=== PATIENT | female | born 1950 | race Caucasian/White ===

== ENCOUNTER → 2018-03-22 | Outpatient (CLI) | payer OTHER ==
[~2018-03-22] MED LIST: DRGTP50 TOP; FOLI1TAB8 PO; FRRG PO; HYDR25TA5 PO; OXYC-57 PO; QUET1TAB34 PO; RXC5 PO; VITAMINB; WARF1TAB PO; ZOLP10TA PO
[2018-03-22 15:48] LABS: HEMATOCRIT 40.7 % (37-47); HEMOGLOBIN 13.7 g/dL (12.0-16.0); MEAN CELL VOLUME 90.6 fL (80-100); MEAN CORPUSCULAR HEMOGLOBIN 30.5 pg (25-34); MEAN CORPUSCULAR HGB CONC 33.7 g/dl (32-36); PLATELET COUNT 249 K/uL (130-400); RED CELL DISTRIBUTION WIDTH CV 12.6 % (11.5-14.5); RED CELL DISTRIBUTION WIDTH SD 41.6 fL (36.4-46.3); WHITE BLOOD COUNT 4.66 K/uL (4.8-10.8)
[2018-03-22 16:24] LABS: ALBUMIN 3.7 gm/dl (3.4-5.0); ALT/SGPT 17 U/L (12-78); AST/SGOT 22 U/L (15-37); BLOOD UREA NITROGEN 11 mg/dl (7-18); CALCIUM 8.9 mg/dl (8.5-10.1); CARBON DIOXIDE 31 mmol/L (21-32); CHOLESTEROL 183 mg/dl (0-200); CREATININE 0.72 mg/dl (0.60-1.20); GLUCOSE 104 mg/dl (70-99); SODIUM 137 mmol/L (136-145)
[2018-03-22 16:35] LABS: ALKALINE PHOSPHATASE 115 U/L (45-117); LDL CHOLESTEROL CALCULATED 97 mg/dl; TOTAL PROTEIN 7.7 gm/dl (6.4-8.2)
== END | disposition home or self-care (01) ==
LOC: C.LAB 15:17
PROVIDERS: ATTEND Surgery
DX: E03.9 Hypothyroidism, unspecified (principal); M15.0 Primary generalized (osteo)arthritis; I25.10 Atherosclerotic heart disease of native coronary artery without angina pectoris; E53.8 Deficiency of other specified B group vitamins

== ENCOUNTER 2024-08-05 20:40 | Observation (INO) ==
--- NOTE | 2024-08-05 20:48 | Emergency Department Note ---
Impression & Plan Acute confusion, Unresponsive episode, MARY (acute kidney injury), Transaminitis, Acute UTI (urinary tract infection), Hypomagnesemia ED Provider Note HISTORY OF PRESENT ILLNESS: Patient is a 73-year-old female presenting with an unresponsive episode. Patient presents with EMS and EMS company. They report that they were called to the patient's house for an unresponsive episode. They report that family stated that the patient was found down and they started CPR. When the fire company got there, the patient was found to have a pulse and CPR was stopped. Patient had sonorous respirations and was given 2 mg of Narcan on EMS arrival. She started to have improvement in her respiratory drive and was being transported to the hospital when she started become very sonorous breathing again and given an additional 1 mg of Narcan. On arrival to the ER, the patient is arousable to painful stimuli. She does not remember what happened this evening. She states she was not trying to hurt herself. EMS reports that they pulled off 7 melatonin patches prehospital. When asked why the patient had this many on, she states that "I just wanted to sleep tonight." ROS: as above PHYSICAL EXAM: Constitutional: Patient appears in no acute distress. Patient is covered in fentanyl and melatonin patches. HENT: Head: Normocephalic and atraumatic. Eyes: EOMI, PERRL Mouth/Throat: Mucous membranes moist. Neck: Trachea midline. Neck supple. Cardiovascular: RRR, No murmurs, rubs or gallops. Intact distal pulses. Pulmonary/Chest: No respiratory distress. Breath sounds clear and equal bilaterally. No wheezes or rales. Abdominal: Abdomen soft, no tenderness, rebound or guarding. Musculoskeletal: No edema, tenderness or deformity noted. Skin: Warm and dry. No rash, erythema, pallor or cyanosis Psychiatric: Appropriate mood and affect for situation. Neurological: Awakens to painful stimuli. Speech is slurred. CN II-XII grossly intact, moving all extremities spontaneously. MDM: - Vitals signs stable. Patient has a relatively normal fingerstick glucose on arrival to the emergency department. She is breathing about 16 times a minute. However, she does not answer any questions until painful stimuli is applied. She has significantly slurred speech. Given patient's continued lethargy, 0.4 mg IV Narcan was administered. Minimal improvement with the IV Narcan. Patient's pupils are not necessarily pinpoint, so I do not feel this is a opioid overdose. - History obtained via EMS, given patient's lethargy. History as above. - Chronic conditions affecting care: Hypertension; TMJ - Differential diagnoses include, but are not limited to: Drug intoxication; drug overdose; alcohol intoxication; CVA; intracranial hemorrhage; ACS; dysrhythmia; UTI; pneumonia - Order placed for continuous cardiac monitoring. At this time, monitor showed rate of 64 bpm with normal sinus rhythm, per my interpretation. - External medical records reviewed. EMS run sheet was reviewed. Patient was given 2 mg of Narcan and then additional 1 mg of Narcan prehospital. - EKG interpreted by myself showed normal sinus rhythm. Rate 74 bpm. QTc 434. No acute ischemic changes. - Laboratory workup interpreted by myself showed normal WBC; anemia (Hgb 8.8); normal INR; MARY (Cr 2.26); normal lactate; hypomagnesemia (Mg 1.5); transaminitis (AST 116; ALT 76); elevated TSH (10.809) with normal T4; negative alcohol/salicylate/acetaminophen levels - UA showed evidence for infection. Patient given 2 g IV Rocephin. - CT head wo contrast negative for acute intracranial pathology - Viral respiratory panel negative. - CXR negative for pneumonia, per my interpretation. - Patient given 2L NS in ER. Given 1g IV magnesium for electrolyte replacement - Discussion was had with piano case maker about patient's case and need for admission - Hospitalist, Dr. Mosquera; consulted for admission - [facility]. I have personally spent 34 minutes of critical care time in the direct management of this patient. This includes bedside care, interpretation of diagnostic studies, and testing, discussion with consultants, patient, and family members, and other required patient management activities. This 34 minutes is in excess of all separately billable procedures. ASSESSMENT AND PLAN: Diagnosis: Acute confusion; unresponsive episode; MARY; hypomagnesemia; transaminitis; acute UTI Plan: Admit Past Med/Surg History Problem List (Updated 08/06/24 @ 00:13 by Ebonie Nowak MD) Hypomagnesemia (Acute) Acute UTI (urinary tract infection) (Acute) Transaminitis (Acute) MARY (acute kidney injury) (Acute) Unresponsive episode (Acute) Acute confusion (Acute) Rotator cuff arthropathy of right shoulder Encounter for pre-operative examination Bimalleolar fracture of left ankle Medical History Degenerative disc disease Arthritis Ankle fracture, left History of TMJ disorder Migraine Hypertension Surgical History History of total hip arthroplasty History of total knee replacement Family History Other No family history of adverse response to anesthesia Social History Smoking Status: Unknown if ever smoked Second Hand Exposure: Yes (as a child); Hx Alcohol Use: Yes Alcohol type: wine Preferred Language: Bah[place]ian 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 Service [employer] Required: No Beliefs That Will Affect Care: None Current Living Situation: Spouse Feels Safe at Home: Yes Assistive Devices: Glasses and Walker Allergies Allergies Allergy/AdvReac Type Severity Reaction Status Date / Time No Known Allergies Allergy Verified 04/20/23 11:03 Home Meds Home Medications Medication Instructions Recorded Confirmed oxycodone 10 mg tablet 10 mg PO TID 04/13/23 04/20/23 rizatriptan 5 mg disintegrating 5 mg PO DIRECTED PRN Migraine 04/13/23 04/20/23 tablet Headache losartan 25 mg tablet 25 mg PO UD PRN elevated bp 04/19/23 04/20/23 multivitamin 1 tab PO DAILY 04/19/23 04/20/23 Previous Rx's Medication Instructions Recorded aspirin 81 mg capsule 81 mg PO BID #60 caps 04/20/23 benzonatate 200 mg capsule 200 mg PO TID PRN cough #20 caps 09/19/23 Results & Data (ED) Vital Signs Vital Signs - 24 hr 08/05/24 20:37 08/05/24 20:37 08/05/24 20:38 Temperature 35.9 C L Temperature Source Rectal Pulse Rate 72 64 Pulse Rate [Apical] Pulse Rate from SpO2 Sensor Pulse Rhythm [Apical] Respiratory Rate 16 Respiratory Effort / Characteristics Non-Labored Respiratory Depth Normal Respiratory Pattern Regular Blood Pressure 109/67 Blood Pressure [Right Arm] Blood Pressure Mean 81 Blood Pressure Mean [Right Arm] Pulse Oximetry 100 100 Oxygen Delivery Method Room Air Room Air Sepsis Recent Fever Within 48 Hours No Sepsis New/Unexplained Change in Mental Status N/A Sepsis Action Taken by Nursing No Action Required End-Tidal CO2 End Tidal CO2 (18-54mmHg) 08/05/24 21:00 08/05/24 21:07 08/05/24 21:10 Temperature Temperature Source Pulse Rate 69 72 Pulse Rate [Apical] Pulse Rate from SpO2 Sensor Pulse Rhythm [Apical] Respiratory Rate 16 Respiratory Effort / Characteristics Respiratory Depth Respiratory Pattern Blood Pressure 109/70 Blood Pressure [Right Arm] Blood Pressure Mean 83 Blood Pressure Mean [Right Arm] Pulse Oximetry 100 100 Oxygen Delivery Method Room Air Room Air Sepsis Recent Fever Within 48 Hours Sepsis New/Unexplained Change in Mental Status Sepsis Action Taken by Nursing End-Tidal CO2 31 End Tidal CO2 (18-54mmHg) 08/05/24 21:10 08/05/24 21:20 08/05/24 21:30 Temperature Temperature Source Pulse Rate 67 69 63 Pulse Rate [Apical] Pulse Rate from SpO2 Sensor Pulse Rhythm [Apical] Respiratory Rate 22 16 21 Respiratory Effort / Characteristics Respiratory Depth Respiratory Pattern Blood Pressure 122/81 133/86 127/76 Blood Pressure [Right Arm] Blood Pressure Mean 95 109 93 Blood Pressure Mean [Right Arm] Pulse Oximetry 100 99 97 Oxygen Delivery Method Room Air Room Air Room Air Sepsis Recent Fever Within 48 Hours Sepsis New/Unexplained Change in Mental Status Sepsis Action Taken by Nursing End-Tidal CO2 31 33 End Tidal CO2 (18-54mmHg) 08/05/24 21:47 08/05/24 22:00 08/05/24 22:15 Temperature Temperature Source Pulse Rate 57 L 57 L Pulse Rate [Apical] 56 L Pulse Rate from SpO2 Sensor 57 L 57 L Pulse Rhythm [Apical] Respiratory Rate 17 15 15 Respiratory Effort / Characteristics Non-Labored Respiratory Depth Normal Respiratory Pattern Regular Blood Pressure 134/82 136/80 Blood Pressure [Right Arm] 127/78 Blood Pressure Mean 107 87 Blood Pressure Mean [Right Arm] 94 Pulse Oximetry 97 97 96 Oxygen Delivery Method Room Air Room Air Room Air Sepsis Recent Fever Within 48 Hours Sepsis New/Unexplained Change in Mental Status Sepsis Action Taken by Nursing End-Tidal CO2 18 16 End Tidal CO2 (18-54mmHg) 08/05/24 22:30 08/05/24 22:45 08/05/24 23:00 Temperature Temperature Source Pulse Rate Pulse Rate [Apical] 54 L 56 L 56 L Pulse Rate from SpO2 Sensor Pulse Rhythm [Apical] Regular Regular Respiratory Rate 12 14 13 Respiratory Effort / Characteristics Non-Labored Non-Labored Non-Labored Respiratory Depth Normal Normal Normal Respiratory Pattern Regular Regular Regular Blood Pressure Blood Pressure [Right Arm] 134/81 123/80 116/74 Blood Pressure Mean Blood Pressure Mean [Right Arm] 98 94 88 Pulse Oximetry 100 99 95 Oxygen Delivery Method Room Air Room Air Room Air Sepsis Recent Fever Within 48 Hours Sepsis New/Unexplained Change in Mental Status Sepsis Action Taken by Nursing End-Tidal CO2 End Tidal CO2 (18-54mmHg) 34 34 37 08/05/24 23:27 Temperature Temperature Source Pulse Rate Pulse Rate [Apical] 64 Pulse Rate from SpO2 Sensor Pulse Rhythm [Apical] Respiratory Rate 13 Respiratory Effort / Characteristics Non-Labored Spontaneous Respiratory Depth Normal Respiratory Pattern Regular Blood Pressure Blood Pressure [Right Arm] 124/71 Blood Pressure Mean Blood Pressure Mean [Right Arm] 88 Pulse Oximetry 100 Oxygen Delivery Method Room Air Sepsis Recent Fever Within 48 Hours Sepsis New/Unexplained Change in Mental Status Sepsis Action Taken by Nursing End-Tidal CO2 End Tidal CO2 (18-54mmHg) Laboratory Data 08/05/24 21:11 08/05/24 21:11 Lab Results 08/05/24 08/05/24 08/05/24 Range/Units 20:46 21:05 21:11 WBC 6.26 (4.8-10.8) K/ul RBC 3.53 L (4.20-5.40) M/uL Hgb 8.8 L (12.0-16.0) g/dl POC Hgb (12.0-16.0) g/dl Hct 27.1 L (37.0-47.0) % POC Hct (37-47) % MCV 76.8 L (80.0-100.0) fL MCH 24.9 L (25.0-34.0) pg MCHC 32.5 (32.0-36.0) g/dL RDW Std Deviation 51.0 H (36.4-46.3) fL RDW Coeff of Alia 18.3 H (11.5-14.5) % Plt Count 220 (130-400) K/uL MPV 9.2 L (9.4-12.4) fL Immature Gran % (Auto) 0.5 % Neut % (Auto) 67.4 % Lymph % (Auto) 23.3 % [place] % (Auto) 6.9 % Eos % (Auto) 1.1 % Baso % (Auto) 0.8 % Neut # (Auto) 4.22 (1.40-6.50) K/uL Lymph # (Auto) 1.46 (1.20-3.40) K/uL [place] # (Auto) 0.43 (0.11-0.59) K/uL Eos # (Auto) 0.07 (0.00-0.50) K/uL Baso # (Auto) 0.05 (0.00-0.20) K/uL Immature Gran # (Auto) 0.03 (0.01-0.20) K/uL PT 12.2 H (9.0-12.0) Seconds INR 1.1 (0.9-1.1) POC Sodium (135-144) mmol/L Sodium 132 L (136-145) mmol/L POC Potassium (3.3-5.0) mmol/L Potassium 3.7 (3.5-5.1) mmol/L POC Chloride (101-112) mmol/L Chloride 100 (98-107) mmol/L Carbon Dioxide 22 (21-32) mmol/L POC Total CO2 (24-31) mmol/L Anion Gap 10 (3-11) POC Anion Gap (16-25) mmol/L POC BUN (7-18) mg/dl BUN 40 H (6-23) mg/dl Creatinine 2.26 H (0.6-1.2) mg/dl POC Creatinine (0.6-1.3) mg/dl Est Cr Clr Drug Dosing 17.1 ml/min Est GFR ( Amer) 24.2 ml/min Est GFR (Non-Af Amer) 20.8 ml/min BUN/Creatinine Ratio 17.7 (10-20) Glucose 107 H (70-99(Fasting)) mg/dl POC Glucose 160 H (70-99) mg/dl POC Glucose (other) (70-99) mg/dl Lactate (0.4-2.0) mmol/L Calcium 8.8 (8.6-10.3) mg/dl POC Ioniz Calcium Ro (1.12-1.32) mmol/l Magnesium 1.5 L (1.7-2.4) mg/dl Total Bilirubin 0.7 (0.2-1.0) mg/dl AST 116 H (13-39) U/L ALT 76 H (7-52) U/L Alkaline Phosphatase 62 (34-104) U/L Total Creatine Kinase 87 (26-192) U/L Troponin I High Sens 12.8 (0-14) pg/ml Total Protein 7.2 (6.0-8.3) gm/dl Albumin 3.8 (3.4-5.0) gm/dl Globulin 3.4 (2.5-4.0) gm/dl Albumin/Globulin Ratio 1.1 (0.9-2) TSH 10.809 H (0.300-4.500) uIu/ml Free T4 1.04 (0.61-1.60) ng/dl Urine Color Urine Appearance (Clear) Urine pH (4.5-7.5) Ur Specific [place] (1.000-1.030) Urine Protein (Negative) Urine Glucose (UA) (Negative) Urine Ketones (Negative) Urine Blood (Negative) Urine Nitrite (Negative) Urine Bilirubin (Negative) Urine Urobilinogen (Negative) Ur Leukocyte Esterase (Negative) Urine WBC (Auto) (0-5) /hpf Urine RBC (Auto) (0-2) /hpf U Hyaline Cast (Auto) (0-2) /lpf U Epithel Cells (Auto) (0-2) /hpf Urine Bacteria (Auto) (None Seen) Ur Renal Epithelial Cell (None Presnt) /lpf Salicylates < 3.0 L (3.0-30) mg/dl Acetaminophen < 3 L (10-30) ug/ml Ethyl Alcohol mg/dL < 10.0 (<10.0) mg/dl Adenovirus (PCR) Not Detected (NotDetected) B. pertussis DNA (PCR) Not Detected (NotDetected) B.parapertussis DNA PCR Not Detected (NotDetected) C. pneumoniae DNA (PCR) Not Detected (NotDetected) Coronavirus OC43 (PCR) Not Detected (NotDetected) Coronavirus HKU1 (PCR) Not Detected (NotDetected) Coronavirus 229E (PCR) Not Detected (NotDetected) SARS-CoV-2 (PCR) Not Detected (NotDetected) Coronavirus NL63 (PCR) Not Detected (NotDetected) Human Metapneumovir PCR Not Detected (NotDetected) Influenza Type A (PCR) Not Detected (NotDetected) Influenza Type B (PCR) Not Detected (NotDetected) M. pneumoniae (PCR) Not Detected (NotDetected) Parainfluenza 1 (PCR) Not Detected (NotDetected) Parainfluenza 2 (PCR) Not Detected (NotDetected) Parainfluenza 3 (PCR) Not Detected (NotDetected) Parainfluenza 4 (PCR) Not Detected (NotDetected) RSV (PCR) Not Detected (NotDetected) Entero/Rhino (PCR) Not Detected (NotDetected) 08/05/24 08/05/24 08/05/24 Range/Units 21:16 21:21 21:32 WBC (4.8-10.8) K/ul RBC (4.20-5.40) M/uL Hgb (12.0-16.0) g/dl POC Hgb 9.9 L (12.0-16.0) g/dl Hct (37.0-47.0) % POC Hct 29 L (37-47) % MCV (80.0-100.0) fL MCH (25.0-34.0) pg MCHC (32.0-36.0) g/dL RDW Std Deviation (36.4-46.3) fL RDW Coeff of Alia (11.5-14.5) % Plt Count (130-400) K/uL MPV (9.4-12.4) fL Immature Gran % (Auto) % Neut % (Auto) % Lymph % (Auto) % [place] % (Auto) % Eos % (Auto) % Baso % (Auto) % Neut # (Auto) (1.40-6.50) K/uL Lymph # (Auto) (1.20-3.40) K/uL [place] # (Auto) (0.11-0.59) K/uL Eos # (Auto) (0.00-0.50) K/uL Baso # (Auto) (0.00-0.20) K/uL Immature Gran # (Auto) (0.01-0.20) K/uL PT (9.0-12.0) Seconds INR (0.9-1.1) POC Sodium 134 L (135-144) mmol/L Sodium (136-145) mmol/L POC Potassium 3.7 (3.3-5.0) mmol/L Potassium (3.5-5.1) mmol/L POC Chloride 99 L (101-112) mmol/L Chloride (98-107) mmol/L Carbon Dioxide (21-32) mmol/L POC Total CO2 21 L (24-31) mmol/L Anion Gap (3-11) POC Anion Gap 18.0 (16-25) mmol/L POC BUN 35 H (7-18) mg/dl BUN (6-23) mg/dl Creatinine (0.6-1.2) mg/dl POC Creatinine 2.4 H (0.6-1.3) mg/dl Est Cr Clr Drug Dosing ml/min Est GFR ( Amer) ml/min Est GFR (Non-Af Amer) ml/min BUN/Creatinine Ratio (10-20) Glucose (70-99(Fasting)) mg/dl POC Glucose (70-99) mg/dl POC Glucose (other) 109 H (70-99) mg/dl Lactate 1.2 (0.4-2.0) mmol/L Calcium (8.6-10.3) mg/dl POC Ioniz Calcium Ro 1.19 (1.12-1.32) mmol/l Magnesium (1.7-2.4) mg/dl Total Bilirubin (0.2-1.0) mg/dl AST (13-39) U/L ALT (7-52) U/L Alkaline Phosphatase (34-104) U/L Total Creatine Kinase (26-192) U/L Troponin I High Sens (0-14) pg/ml Total Protein (6.0-8.3) gm/dl Albumin (3.4-5.0) gm/dl Globulin (2.5-4.0) gm/dl Albumin/Globulin Ratio (0.9-2) TSH (0.300-4.500) uIu/ml Free T4 (0.61-1.60) ng/dl Urine Color Yellow Urine Appearance Turbid A (Clear) Urine pH 6.0 (4.5-7.5) Ur Specific [place] 1.010 (1.000-1.030) Urine Protein 1+ H (Negative) Urine Glucose (UA) Negative (Negative) Urine Ketones Negative (Negative) Urine Blood Trace H (Negative) Urine Nitrite Positive A (Negative) Urine Bilirubin Negative (Negative) Urine Urobilinogen Negative (Negative) Ur Leukocyte Esterase 3+ H (Negative) Urine WBC (Auto) >50 H (0-5) /hpf Urine RBC (Auto) 0-2 (0-2) /hpf U Hyaline Cast (Auto) >20 H (0-2) /lpf U Epithel Cells (Auto) 6-10 H (0-2) /hpf Urine Bacteria (Auto) 4+ H (None Seen) Ur Renal Epithelial Cell Present A (None Presnt) /lpf Salicylates (3.0-30) mg/dl Acetaminophen (10-30) ug/ml Ethyl Alcohol mg/dL (<10.0) mg/dl Adenovirus (PCR) (NotDetected) B. pertussis DNA (PCR) (NotDetected) B.parapertussis DNA PCR (NotDetected) C. pneumoniae DNA (PCR) (NotDetected) Coronavirus OC43 (PCR) (NotDetected) Coronavirus HKU1 (PCR) (NotDetected) Coronavirus 229E (PCR) (NotDetected) SARS-CoV-2 (PCR) (NotDetected) Coronavirus NL63 (PCR) (NotDetected) Human Metapneumovir PCR (NotDetected) Influenza Type A (PCR) (NotDetected) Influenza Type B (PCR) (NotDetected) M. pneumoniae (PCR) (NotDetected) Parainfluenza 1 (PCR) (NotDetected) Parainfluenza 2 (PCR) (NotDetected) Parainfluenza 3 (PCR) (NotDetected) Parainfluenza 4 (PCR) (NotDetected) RSV (PCR) (NotDetected) Entero/Rhino (PCR) (NotDetected) Administered Medications Discontinued Medications Sodium Chloride (Nss) 1,000 mls @ 999 mls/hr IV .Q1H1M NICO Stop: 08/05/24 21:45 Last Infusion: 08/05/24 22:40 Dose: Infused Documented By: Admin: 08/05/24 21:27 Dose: 999 mls/hr Documented By: THAIS Ceftriaxone Sodium (Rocephin) 2,000 mg in 50 mls @ 100 mls/hr IV NOW STA Stop: 08/05/24 22:45 Last Infusion: 08/05/24 22:54 Dose: Infused Documented By: Admin: 08/05/24 22:24 Dose: 100 mls/hr Documented By: THAIS Sodium Chloride (Nss) 1,000 mls @ 999 mls/hr IV .Q1H1M ONE Stop: 08/05/24 23:34 Last Admin: 08/05/24 22:43 Dose: 999 mls/hr Documented By: THAIS Magnesium Sulfate/Dextrose (Magnesium Sulfate / D5w) 1 gm in 100 mls @ 100 mls/hr IV NOW STA Stop: 08/06/24 00:10 Last Admin: 08/05/24 23:25 Dose: 100 mls/hr Documented By: MED Naloxone HCl (Naloxone Hcl 0.4 Mg/1 Ml Vial/Carp) Confirm Administered Dose 1.6 mg .ROUTE .STK-MED ONE Stop: 08/05/24 20:40 Last Admin: 08/05/24 23:27 Dose: Not Given Documented By: MED Naloxone HCl (Naloxone Hcl 0.4 Mg/1 Ml Vial/Carp) 0.4 mg IV NOW STA Stop: 08/05/24 21:50 Last Admin: 08/05/24 20:50 Dose: 0.4 mg Documented By: THAIS Imaging Data Radiologist's Impression: Head CT 08/05/24 20:45 Exam(s): CT HEAD Without Contrast EXAM: CT Head Without Intravenous Contrast CLINICAL HISTORY: Reason for exam: unresponsive episode. TECHNIQUE: Axial computed tomography images of the head/brain without intravenous contrast. CTDI is 38.37 mGy and DLP is 625.8 mGy-cm. Automated exposure control was utilized for the study. A dose lowering technique was utilized adhering to the principles of ALARA. COMPARISON: No relevant prior studies available. FINDINGS: Brain: Unremarkable. No hemorrhage. No significant white matter disease. No edema. Ventricles: Unremarkable. No ventriculomegaly. Bones/joints: Advanced bilateral TMJ arthropathy. No acute fracture. Soft tissues: Unremarkable. Sinuses: Unremarkable as visualized. No acute sinusitis. Mastoid air cells: Unremarkable as visualized. No mastoid effusion. IMPRESSION: No evidence of acute intracranial pathology. Electronically signed by: Samantha Stone MD 08/06/24 00:15 AM Discharge Plan Visit Data Chief Complaint: Unresponsive Stated Complaint: UNRESPONSIVE ED Provider: Ebonie Nowak Discharge Problem: Acute confusion, Unresponsive episode, MARY (acute kidney injury), Transaminitis, Acute UTI (urinary tract infection), Hypomagnesemia Forms Stand Alone Forms: My [facility] Prescriptions Prescriptions: No Action benzonatate 200 mg capsule 200 mg PO TID PRN (Reason: cough) Qty: 20 0RF rizatriptan 5 mg tablet,disintegrating 5 mg PO DIRECTED PRN (Reason: Migraine Headache) oxycodone 10 mg tablet 10 mg PO TID multivitamin Tablet 1 tab PO DAILY losartan 25 mg Tablet 25 mg PO UD PRN (Reason: elevated bp) Patient Comments: last taken>2 weeks ago aspirin 81 mg Capsule 81 mg PO BID Qty: 60 0RF Referrals Referrals: Bob Washington [Primary Care Provider] -
[2024-08-05] MEDS: NALOXONE HCL 0.4 MG/1 ML VIAL/CARP IV STA (20:50)
[2024-08-05] MEDS: SODIUM CHLORIDE 0.9% 1,000 ML IV SCH (21:27)
[2024-08-05 21:28] LABS: iSTAT Creatinine 2.4 mg/dl (0.6-1.3); iSTAT Hemoglobin 9.9 g/dl (12.0-16.0); iSTAT Ionized Calcium 1.19 mmol/l (1.12-1.32); iSTAT Potassium 3.7 mmol/L (3.3-5.0)
[2024-08-05 21:33] LABS: Basophils # (auto) 0.05 K/uL (0.00-0.20); Basophils % (auto) 0.8 %; Eosinophils # (auto) 0.07 K/uL (0.00-0.50); Eosinophils % (auto) 1.1 %; Hematocrit (blood only) 27.1 % (37.0-47.0); Hemoglobin 8.8 g/dl (12.0-16.0); Immature Granulocytes # (auto) 0.03 K/uL (0.01-0.20); Immature Granulocytes % (auto) 0.5 %; Lymphocytes # (auto) 1.46 K/uL (1.20-3.40); Lymphocytes % (auto) 23.3 %; Mean Corpuscular Hemoglobin 24.9 pg (25.0-34.0); Mean Corpuscular Hgb Conc 32.5 g/dL (32.0-36.0); Mean Corpuscular Volume 76.8 fL (80.0-100.0); Mean Platelet Volume 9.2 fL (9.4-12.4); Monocytes # (auto) 0.43 K/uL (0.11-0.59); Monocytes % (auto) 6.9 %; Neutrophils # (auto) 4.22 K/uL (1.40-6.50); Neutrophils % (auto) 67.4 %; Platelet Count 220 K/uL (130-400); RDW Coefficient of Variation 18.3 % (11.5-14.5); Red Blood Count 3.53 M/uL (4.20-5.40); White Blood Count 6.26 K/ul (4.8-10.8)
[2024-08-05 21:57] LABS: Troponin I High Sensitivity 12.8 pg/ml (0-14)
[2024-08-05 22:00] LABS: Acetaminophen < 3 ug/ml (10-30); Salicylate < 3.0 mg/dl (3.0-30)
[2024-08-05 22:04] LABS: INR 1.1 (0.9-1.1); Prothrombin Time 12.2 Seconds (9.0-12.0)
[2024-08-05 22:06] LABS: Appearance Urine Turbid (Clear); Bacteria Urine Automated 4+ (None Seen); Bilirubin Urine Negative (Negative); Blood Urine Trace (Negative); Cast Urine Automated >20 /lpf (0-2); Color Urine Yellow; Glucose Urine UA Negative (Negative); Ketones Urine Negative (Negative); Leukocyte Esterase Urine 3+ (Negative); Nitrite Urine Positive (Negative); Protein Urine 1+ (Negative); RBC Urine Automated 0-2 /hpf (0-2); Renal Epithelial Cells Urine Present /lpf (None Presnt); Urobilinogen Urine Negative (Negative); WBC Urine Automated >50 /hpf (0-5)
[2024-08-05 22:07] LABS: Thyroid Stimulating Hormone 10.809 uIu/ml (0.300-4.500)
[2024-08-05 22:16] LABS: Adenovirus PCR Not Detected (NotDetected); Bordetella parapertussis PCR Not Detected (NotDetected); Bordetella pertussis PCR Not Detected (NotDetected); Chlamydia pneumoniae PCR Not Detected (NotDetected); Coronavirus 229E PCR Not Detected (NotDetected); Coronavirus CoV-2 (COVID19)PCR Not Detected (NotDetected); Coronavirus HKU1 PCR Not Detected (NotDetected); Coronavirus NL63 PCR Not Detected (NotDetected); Coronavirus OC43PCR Not Detected (NotDetected); Human Metapneumovirus PCR Not Detected (NotDetected); Influenza A PCR Not Detected (NotDetected); Influenza B PCR Not Detected (NotDetected); Mycoplasma pneumoniae PCR Not Detected (NotDetected); Parainfluenza Virus 1 PCR Not Detected (NotDetected); Parainfluenza Virus 2 PCR Not Detected (NotDetected); Parainfluenza Virus 3 PCR Not Detected (NotDetected); Parainfluenza Virus 4 PCR Not Detected (NotDetected); Respiratory Syncytial VirusPCR Not Detected (NotDetected); Rhinovirus/Enterovirus PCR Not Detected (NotDetected)
[2024-08-05 22:24] LABS: Albumin Level 3.8 gm/dl (3.4-5.0); Bilirubin,Total 0.7 mg/dl (0.2-1.0); Calcium 8.8 mg/dl (8.6-10.3); Magnesium 1.5 mg/dl (1.7-2.4); Potassium 3.7 mmol/L (3.5-5.1)
[2024-08-05] MEDS: cefTRIAXone SODIUM 2,000 MG/50 ML BAG IV STA (22:24)
[2024-08-05 22:30] LABS: Albumin Globulin Ratio 1.1 (0.9-2); BUN Creatinine Ratio 17.7 (10-20); Creatinine Clr Calc Pharmacy 17.1 ml/min; Est GFR (African American) 24.2 ml/min; Est GFR (Non-African American) 20.8 ml/min; Globulin 3.4 gm/dl (2.5-4.0); Total Protein 7.2 gm/dl (6.0-8.3)
[2024-08-05] MEDS: SODIUM CHLORIDE 0.9% 1,000 ML IV ONE (22:43)
[2024-08-05 22:53] LABS: T4 Free Thyroxine 1.04 ng/dl (0.61-1.60)
[2024-08-05] MEDS: MAGNESIUM SULFATE / D5W 1 GM/100 ML BAG IV STA (23:25)
[2024-08-05] MEDS: NALOXONE HCL 0.4 MG/1 ML VIAL/CARP ONE (23:27)
--- NOTE | 2024-08-06 00:16 | CT Scan Report ---
Exam(s): CT HEAD Without Contrast EXAM: CT Head Without Intravenous Contrast CLINICAL HISTORY: Reason for exam: unresponsive episode. TECHNIQUE: Axial computed tomography images of the head/brain without intravenous contrast. CTDI is 38.37 mGy and DLP is 625.8 mGy-cm. Automated exposure control was utilized for the study. A dose lowering technique was utilized adhering to the principles of ALARA. COMPARISON: No relevant prior studies available. FINDINGS: Brain: Unremarkable. No hemorrhage. No significant white matter disease. No edema. Ventricles: Unremarkable. No ventriculomegaly. Bones/joints: Advanced bilateral TMJ arthropathy. No acute fracture. Soft tissues: Unremarkable. Sinuses: Unremarkable as visualized. No acute sinusitis. Mastoid air cells: Unremarkable as visualized. No mastoid effusion. IMPRESSION: No evidence of acute intracranial pathology. Electronically signed by: Samantha Stone MD 08/06/24 00:15 AM
--- NOTE | 2024-08-06 00:21 | History & Physical Report ---
Date of Service August 06, 2024 Assessment & Plan (1) Unresponsive episode: (2) Adverse reaction to drug: (3) Acute UTI (urinary tract infection): (4) Hypomagnesemia: (5) Transaminitis: (6) Acute kidney injury superimposed on CKD: (7) Rotator cuff arthropathy of right shoulder: (8) Hypertension: (9) Migraine: (10) Chronic pain syndrome: (11) Insomnia: Plan Unresponsive episode- Likely secondary to a combination of fentanyl patch which had been removed yesterday, and 7 melatonin OTC patches, which EMS removed today. Patient had a partial response to Narcan given in the field and in the ED She was able to communicate more normally, after receiving from the ED the fo llowing: Normal saline 1 L boluses x 2, made magnesium sulfate 1 g IV, naloxone 0.4 mg IV, and ceftriaxone 2 g IV. Patient's current pain medications will be held for now Order a urine drug screen Urinary tract infection/diarrhea- Follow urine culture sensitivity Continue ceftriaxone 2 g IV daily Order stool PCR testing NSS at 80 mL/h x 1 L Chronic pain syndrome- Fentanyl patch 50 mcg changing every 3 days Oxycodone 10 mg p.o. 3 times daily to 4 times daily Zolpidem 5 mg p.o. at bedtime These medications will be held overnight, and can be reassessed in the morning Acute kidney injury superimposed on CKD/hypomagnesemia- Creatinine 2.26, with base 1.58 Magnesium 1.5 Given magnesium sulfate 1 g IV, and will recheck laboratories in a.m. IV fluids as noted above, with maintenance fluids, and recheck labs in the a.m. Transaminitis- AST 116 ALT 76 Reassess after treatment above and rehydration If worse in the a.m., will do imaging at that time Hypothyroidism- TSH on screening labs 10.809, with free T4 pending Can be readdressed as an outpatient History of Present Illness Chief Complaint: The patient was evaluated by EMS when they were called to the patient's house for an unresponsive episode, when the patient's family found the patient down and they started CPR. When EMS arrived, patient was found to have a pulse, and CPR was stopped. Patient was found to have sonorous respirations, received 2 mg Narcan, and upon recurrence of symptoms to the hospital, received an additional 1 mg of Narcan. Upon arrival to the emergency department, patient was rousable. EMS reported the patient had 7 melatonin patches, the day hold off prehospital. The patient reports that her last fentanyl patch 50 mcg, was taken off yesterday, and she had started the melatonin patches that her had ordered for her at an online store about 5 days ago. Primary Care Provider: Bob Washington The patient is a 73-year-old female with a past medical history including hypertension, chronic shoulder pain, migraine, and chronic cough. She presented to the emergency department after family found her unresponsive at home, began CPR briefly, which was then discontinued. The patient presents otherwise as noted above. Allergies Allergy/AdvReac Type Severity Reaction Status Date / Time No Known Allergies Allergy Verified 04/20/23 11:03 Home Medications Medication Instructions Recorded Confirmed Type oxycodone 10 mg tablet 10 mg PO TID 04/13/23 04/20/23 History rizatriptan 5 mg disintegrating 5 mg PO DIRECTED PRN Migraine 04/13/23 04/20/23 History tablet Headache losartan 25 mg tablet 25 mg PO UD PRN elevated bp 04/19/23 04/20/23 History multivitamin 1 tab PO DAILY 04/19/23 04/20/23 History aspirin 81 mg capsule 81 mg PO BID #60 caps 04/20/23 04/20/23 Rx benzonatate 200 mg capsule 200 mg PO TID PRN cough #20 caps 09/19/23 Rx Past Med/Surg History Problem List (Updated 08/06/24 @ 03:46 by Erich Mosquera MD) Adverse reaction to drug Insomnia Chronic pain syndrome Hypertension Migraine Acute kidney injury superimposed on CKD Hypomagnesemia (Acute) Acute UTI (urinary tract infection) (Acute) Transaminitis (Acute) MARY (acute kidney injury) (Acute) Unresponsive episode (Acute) Acute confusion (Acute) Rotator cuff arthropathy of right shoulder Encounter for pre-operative examination Bimalleolar fracture of left ankle Medical History Degenerative disc disease Arthritis Ankle fracture, left History of TMJ disorder Migraine Hypertension Surgical History History of total hip arthroplasty History of total knee replacement Family History Other No family history of adverse response to anesthesia Social History Smoking Status: Never smoker Second Hand Exposure: Yes (as a child); Hx Alcohol Use: Yes Alcohol type: wine Hx Substance Use: No Preferred Language: Georgian Communication Ability: Effective Housefellow Required: No Beliefs That Will Affect Care: None Current Living Situation: Spouse and Family Feels Safe at Home: Yes Assistive Devices: None Review of Systems Review of Systems: The patient denies chest pain, palpitations, lower extremity swelling, sore throat, fevers, chills, sweats, nausea, vomiting, diarrhea , constipation, abdominal pain, pelvic pain, blood in urine or stool, dysuria, urinary frequency or urgency, lightheadedness, dizziness, rash, abnormal bruising or bleeding, imbalance, focal weakness, numbness or tingling in arms or legs, back or neck pain, or night sweats. The review of systems is otherwise negative other than for that already noted above, and at least 10 systems have been reviewed. Physical Exam Physical Exam: The patient is awake, alert and oriented 3, well developed and well nourished, normocephalic and atraumatic, lying in bed and in no acute distress. HEENT--PERRL, EOMI, mucous membranes and oropharynx mildly dry. Neck--supple. No JVD. No bruits. Thyroid normal, trachea midline, no adenopathy. Heart--normal S1 and S2. No murmurs, rubs or gallops. Lungs--clear bilaterally, no respiratory distress, no accessory muscle use. Abdomen--normal bowel sounds and soft. Nontender. Nondistended, no hernias or masses, no organomegaly. Extremities--no cyanosis or clubbing. No edema. There are good distal pulses b/l. Dermatologic--normal skin turgor, normal color, no abnormal lymph nodes, no rash. Neurologic--cranial nerves II through XII grossly intact. Rheumatologic--normal range of motion. Psychiatric--normal affect. Results & Data Results & Data Vital Signs (Past 12 Hours) Vital Signs Temp Pulse Pulse Resp BP BP Pulse Ox 08/05/24 23:27 64 13 124/71 100 08/05/24 23:00 56 L 13 116/74 95 08/05/24 22:45 56 L 14 123/80 99 08/05/24 22:30 54 L 12 134/81 100 08/05/24 22:15 56 L 15 127/78 96 08/05/24 22:00 57 L 15 136/80 97 08/05/24 21:47 57 L 17 134/82 97 08/05/24 21:30 63 21 127/76 97 08/05/24 21:20 69 16 133/86 99 08/05/24 21:10 67 22 122/81 100 08/05/24 21:10 100 08/05/24 21:07 72 08/05/24 21:00 69 16 109/70 100 08/05/24 20:38 64 08/05/24 20:37 100 08/05/24 20:37 35.9 C L 72 16 109/67 100 O2 Del Method 08/05/24 23:27 Room Air 08/05/24 23:00 Room Air 08/05/24 22:45 Room Air 08/05/24 22:30 Room Air 08/05/24 22:15 Room Air 08/05/24 22:00 Room Air 08/05/24 21:47 Room Air 08/05/24 21:30 Room Air 08/05/24 21:20 Room Air 08/05/24 21:10 Room Air 08/05/24 21:10 Room Air 08/05/24 21:07 08/05/24 21:00 Room Air 08/05/24 20:38 08/05/24 20:37 Room Air 08/05/24 20:37 Room Air Laboratory Results Laboratory Results WBC 6.26 K/ul (4.8-10.8) 08/05/24 21:11 RBC 3.53 M/uL (4.20-5.40) L 08/05/24 21:11 Hgb 8.8 g/dl (12.0-16.0) L 08/05/24 21:11 POC Hgb 9.9 g/dl (12.0-16.0) L 08/05/24 21:16 Hct 27.1 % (37.0-47.0) L 08/05/24 21:11 POC Hct 29 % (37-47) L 08/05/24 21:16 MCV 76.8 fL (80.0-100.0) L 08/05/24 21:11 MCH 24.9 pg (25.0-34.0) L 08/05/24 21:11 MCHC 32.5 g/dL (32.0-36.0) 08/05/24 21:11 RDW Std Deviation 51.0 fL (36.4-46.3) H 08/05/24 21:11 RDW Coeff of Alia 18.3 % (11.5-14.5) H 08/05/24 21:11 Plt Count 220 K/uL (130-400) 08/05/24 21:11 MPV 9.2 fL (9.4-12.4) L 08/05/24 21:11 Immature Gran % (Auto) 0.5 % 08/05/24 21:11 Neut % (Auto) 67.4 % 08/05/24 21:11 Lymph % (Auto) 23.3 % 08/05/24 21:11 Gonzales % (Auto) 6.9 % 08/05/24 21:11 Eos % (Auto) 1.1 % 08/05/24 21:11 Baso % (Auto) 0.8 % 08/05/24 21:11 Neut # (Auto) 4.22 K/uL (1.40-6.50) 08/05/24 21:11 Lymph # (Auto) 1.46 K/uL (1.20-3.40) 08/05/24 21:11 Gonzales # (Auto) 0.43 K/uL (0.11-0.59) 08/05/24 21:11 Eos # (Auto) 0.07 K/uL (0.00-0.50) 08/05/24 21:11 Baso # (Auto) 0.05 K/uL (0.00-0.20) 08/05/24 21:11 Immature Gran # (Auto) 0.03 K/uL (0.01-0.20) 08/05/24 21: PT 12.2 Seconds (9.0-12.0) H 08/05/24 21:11 INR 1.1 (0.9-1.1) 08/05/24 21:11 POC Sodium 134 mmol/L (135-144) L 08/05/24 21:16 Sodium 132 mmol/L (136-145) L 08/05/24 21:11 POC Potassium 3.7 mmol/L (3.3-5.0) 08/05/24 21:16 Potassium 3.7 mmol/L (3.5-5.1) 08/05/24 21:11 POC Chloride 99 mmol/L (101-112) L 08/05/24 21:16 Chloride 100 mmol/L (98-107) 08/05/24 21:11 Carbon Dioxide 22 mmol/L (21-32) 08/05/24 21:11 POC Total CO2 21 mmol/L (24-31) L 08/05/24 21:16 Anion Gap 10 (3-11) 08/05/24 21:11 POC Anion Gap 18.0 mmol/L (16-25) 08/05/24 21:16 POC BUN 35 mg/dl (7-18) H 08/05/24 21:16 BUN 40 mg/dl (6-23) H 08/05/24 21:11 Creatinine 2.26 mg/dl (0.6-1.2) H 08/05/24 21:11 POC Creatinine 2.4 mg/dl (0.6-1.3) H 08/05/24 21:16 Est Cr Clr Drug Dosing 17.1 ml/min 08/05/24 21:11 Est GFR ( Amer) 24.2 ml/min 08/05/24 21:11 Est GFR (Non-Af Amer) 20.8 ml/min 08/05/24 21:11 BUN/Creatinine Ratio 17.7 (10-20) 08/05/24 21:11 Glucose 107 mg/dl (70-99(Fasting)) H 08/05/24 21:11 POC Glucose 160 mg/dl (70-99) H 08/05/24 20:46 POC Glucose (other) 109 mg/dl (70-99) H 08/05/24 21:16 Lactate 1.2 mmol/L (0.4-2.0) 08/05/24 21:32 Calcium 8.8 mg/dl (8.6-10.3) 08/05/24 21:11 POC Ioniz Calcium Ro 1.19 mmol/l (1.12-1.32) 08/05/24 21:16 Magnesium 1.5 mg/dl (1.7-2.4) L 08/05/24 21:11 Total Bilirubin 0.7 mg/dl (0.2-1.0) 08/05/24 21:11 AST 116 U/L (13-39) H 08/05/24 21:11 ALT 76 U/L (7-52) H 08/05/24 21:11 Alkaline Phosphatase 62 U/L (34-104) 08/05/24 21:11 Total Creatine Kinase 87 U/L (26-192) 08/05/24 21:11 Troponin I High Sens 12.8 pg/ml (0-14) 08/05/24 21:11 Total Protein 7.2 gm/dl (6.0-8.3) 08/05/24 21:11 Albumin 3.8 gm/dl (3.4-5.0) 08/05/24 21:11 Globulin 3.4 gm/dl (2.5-4.0) 08/05/24 21:11 Albumin/Globulin Ratio 1.1 (0.9-2) 08/05/24 21:11 TSH 10.809 uIu/ml (0.300-4.500) H 08/05/24 21:11 Free T4 1.04 ng/dl (0.61-1.60) 08/05/24 21:11 Urine Color Yellow 08/05/24 21:21 Urine Appearance Turbid (Clear) A 08/05/24 21:21 Urine pH 6.0 (4.5-7.5) 08/05/24 21:21 Ur Specific [place] 1.010 (1.000-1.030) 08/05/24 21:21 Urine Protein 1+ (Negative) H 08/05/24 21:21 Urine Glucose (UA) Negative (Negative) 08/05/24 21:21 Urine Ketones Negative (Negative) 08/05/24 21:21 Urine Blood Trace (Negative) H 08/05/24 21:21 Urine Nitrite Positive (Negative) A 08/05/24 21:21 Urine Bilirubin Negative (Negative) 08/05/24 21:21 Urine Urobilinogen Negative (Negative) 08/05/24 21:21 Ur Leukocyte Esterase 3+ (Negative) H 08/05/24 21:21 Urine WBC (Auto) >50 /hpf (0-5) H 08/05/24 21:21 Urine RBC (Auto) 0-2 /hpf (0-2) 08/05/24 21:21 U Hyaline Cast (Auto) >20 /lpf (0-2) H 08/05/24 21:21 U Epithel Cells (Auto) 6-10 /hpf (0-2) H 08/05/24 21:21 Urine Bacteria (Auto) 4+ (None Seen) H 08/05/24 21:21 Ur Renal Epithelial Cell Present /lpf (None Presnt) A 08/05/24 21:21 Salicylates < 3.0 mg/dl (3.0-30) L 08/05/24 21:11 Urine Opiates Screen Cancelled 08/05/24 21:21 Ur Methadone, Qual Cancelled 08/05/24 21:21 Urine Fentanyl Screen Cancelled 08/05/24 21:21 Acetaminophen < 3 ug/ml (10-30) L 08/05/24 21:11 Urine Barbiturates Cancelled 08/05/24 21:21 Ur Phencyclidine (PCP) Cancelled 08/05/24 21:21 U Amphetamin/Meth Scrn Cancelled 08/05/24 21:21 MDMA (Ecstasy) Screen Cancelled 08/05/24 21:21 U Benzodiazepines Scrn Cancelled 08/05/24 21:21 Ur Cocaine Metabolite Cancelled 08/05/24 21:21 U Marijuana (THC) Screen Cancelled 08/05/24 21:21 Ethyl Alcohol mg/dL < 10.0 mg/dl (<10.0) 08/05/24 21:11 Adenovirus (PCR) Not Detected (NotDetected) 08/05/24 21:05 B. pertussis DNA (PCR) Not Detected (NotDetected) 08/05/24 21:05 B.parapertussis DNA PCR Not Detected (NotDetected) 08/05/24 21:05 C. pneumoniae DNA (PCR) Not Detected (NotDetected) 08/05/24 21:05 Coronavirus OC43 (PCR) Not Detected (NotDetected) 08/05/24 21:05 Coronavirus HKU1 (PCR) Not Detected (NotDetected) 08/05/24 21:05 Coronavirus 229E (PCR) Not Detected (NotDetected) 08/05/24 21:05 SARS-CoV-2 (PCR) Not Detected (NotDetected) 08/05/24 21:05 Coronavirus NL63 (PCR) Not Detected (NotDetected) 08/05/24 21:05 Human Metapneumovir PCR Not Detected (NotDetected) 08/05/24 21:05 Influenza Type A (PCR) Not Detected (NotDetected) 08/05/24 21:05 Influenza Type B (PCR) Not Detected (NotDetected) 08/05/24 21:05 M. pneumoniae (PCR) Not Detected (NotDetected) 08/05/24 21:05 Parainfluenza 1 (PCR) Not Detected (NotDetected) 08/05/24 21:05 Parainfluenza 2 (PCR) Not Detected (NotDetected) 08/05/24 21:05 Parainfluenza 3 (PCR) Not Detected (NotDetected) 08/05/24 21:05 Parainfluenza 4 (PCR) Not Detected (NotDetected) 08/05/24 21:05 RSV (PCR) Not Detected (NotDetected) 08/05/24 21:05 Entero/Rhino (PCR) Not Detected (NotDetected) 08/05/24 21:[address] 08/05/24 20:45 Exam(s): CT HEAD Without Contrast EXAM: CT Head Without Intravenous Contrast CLINICAL HISTORY: Reason for exam: unresponsive episode. TECHNIQUE: Axial computed tomography images of the head/brain without intravenous contrast. CTDI is 38.37 mGy and DLP is 625.8 mGy-cm. Automated exposure control was utilized for the study. A dose lowering technique was utilized adhering to the principles of ALARA. COMPARISON: No relevant prior studies available. FINDINGS: Brain: Unremarkable. No hemorrhage. No significant white matter disease. No edema. Ventricles: Unremarkable. No ventriculomegaly. Bones/joints: Advanced bilateral TMJ arthropathy. No acute fracture. Soft tissues: Unremarkable. Sinuses: Unremarkable as visualized. No acute sinusitis. Mastoid air cells: Unremarkable as visualized. No mastoid effusion. IMPRESSION: No evidence of acute intracranial pathology. Electronically signed by: Samantha Stone MD 09/11/24 00:15 AM Code Status & VTE Plan Code Status Full code VTE Prophylaxis Plan VTE Prophylaxis will be ordered: Yes PG Care Time/CCT Total # of Minutes Spent Total Time Spent with Patient: Total time spent is greater than 50% in coordination of care (as documented) at patient's floor/unit and/or counseling patient: Coding Level of Care Code 11691 INT INP/OBS CARE 3/75MIN Diagnoses Unresponsive episode R40.4 Adverse reaction to drug T50.905A Acute UTI (urinary tract infection) N39.0 Hypomagnesemia E83.42 Transaminitis R74.01 Acute kidney injury superimposed on CKD N17.9; N18.9 Rotator cuff arthropathy of right shoulder M12.811 Hypertension I10 Migraine G43.909 Chronic pain syndrome G89.4 Insomnia G47.00
[2024-08-06] MEDS: SODIUM CHLORIDE 0.9% 1,000 ML IV SCH (01:29)
[2024-08-06] MEDS ORDERED: ONDANSETRON INJ 2 MG/ML 2 ML VIAL IV PRN (03:03)
[2024-08-06 06:22] LABS: Basophils # (auto) 0.04 K/uL (0.00-0.20); Basophils % (auto) 0.8 %; Eosinophils # (auto) 0.05 K/uL (0.00-0.50); Hematocrit (blood only) 26.5 % (37.0-47.0); Hemoglobin 8.3 g/dl (12.0-16.0); Immature Granulocytes # (auto) 0.02 K/uL (0.01-0.20); Immature Granulocytes % (auto) 0.4 %; Lymphocytes # (auto) 1.23 K/uL (1.20-3.40); Lymphocytes % (auto) 23.4 %; Mean Corpuscular Hemoglobin 24.5 pg (25.0-34.0); Mean Corpuscular Hgb Conc 31.3 g/dL (32.0-36.0); Mean Corpuscular Volume 78.2 fL (80.0-100.0); Mean Platelet Volume 9.2 fL (9.4-12.4); Monocytes # (auto) 0.37 K/uL (0.11-0.59); Neutrophils # (auto) 3.55 K/uL (1.40-6.50); Neutrophils % (auto) 67.4 %; Platelet Count 210 K/uL (130-400); RDW Coefficient of Variation 18.5 % (11.5-14.5); RDW Standard Deviation 52.5 fL (36.4-46.3); Red Blood Count 3.39 M/uL (4.20-5.40); White Blood Count 5.26 K/ul (4.8-10.8)
[2024-08-06 06:41] LABS: Albumin Globulin Ratio 1.1 (0.9-2); Albumin Level 3.4 gm/dl (3.4-5.0); BUN Creatinine Ratio 20.9 (10-20); Bilirubin,Total 0.4 mg/dl (0.2-1.0); Calcium 8.1 mg/dl (8.6-10.3); Creatinine Clr Calc Pharmacy 23.2 ml/min; Est GFR (African American) 35.9 ml/min; Est GFR (Non-African American) 30.9 ml/min; Globulin 3.1 gm/dl (2.5-4.0); Magnesium 1.7 mg/dl (1.7-2.4); Potassium 3.8 mmol/L (3.5-5.1); Total Protein 6.5 gm/dl (6.0-8.3)
--- NOTE | 2024-08-06 07:56 | Hospitalist Progress Note ---
Date of Service August 06, 2024 Assessment & Plan (1) Unresponsive episode: Plan: Unresponsive episode- Likely secondary to a combination of fentanyl patch which had been removed yesterday, and 7 melatonin OTC patches, which EMS removed today. Patient had a partial response to Narcan given in the field and in the ED She was able to communicate more normally, after receiving from the ED the following: Normal saline 1 L boluses x 2, made magnesium sulfate 1 g IV, naloxone 0.4 mg IV, and ceftriaxone 2 g IV. Patient's current pain medications will be held for now Order a urine drug screen (2) Chronic pain syndrome: Plan: Chronic pain syndrome- Fentanyl patch 50 mcg changing every 3 days- Oxycodone 10 mg p.o. 3 times daily to 4 times daily Zolpidem 5 mg p.o. at bedtime These medications will be held pending reassessment (3) Acute UTI (urinary tract infection): Plan: Urinary tract infection/diarrhea- Follow urine culture sensitivity Continue ceftriaxone 2 g IV daily Order stool PCR testing NSS at 80 mL/h x 1 L (4) Acute kidney injury superimposed on CKD: Plan: Acute kidney injury superimposed on CKD 3/hypomagnesemia- Creatinine 2.26, with base 1.58 Magnesium 1.5 Plan Transaminitis- AST 116 ALT 76 Reassess after treatment above and rehydration If worse in the a.m., will do imaging at that time Hypothyroidism- TSH on screening labs 10.809, with free T4 pending Can be readdressed as an outpatient Admission and Anticipated Discharge Date Admission Date: August 06, 2024 Results & Data Results & Data Vital Signs (Past 12 Hours) Vital Signs Temp Pulse Pulse Pulse Resp BP BP 08/06/24 03:22 60 08/06/24 03:05 08/06/24 03:05 97.3 F L 54 L 14 125/74 08/06/24 03:03 97.3 F L 54 L 14 125/74 08/06/24 03:03 08/06/24 02:51 56 L 14 127/78 08/06/24 02:44 127/78 08/06/24 02:44 127/78 08/06/24 02:44 56 L 14 127/78 08/06/24 02:36 53 L 13 127/78 08/06/24 02:18 55 L 12 08/06/24 01:24 60 12 08/06/24 01:00 56 L 13 08/06/24 01:00 62 08/06/24 00:57 62 17 08/06/24 00:33 64 15 08/06/24 00:15 62 15 08/06/24 00:12 120/74 08/06/24 00:12 120/74 08/06/24 00:06 87 0 L 08/06/24 00:03 99 H 18 08/05/24 23:33 60 13 08/05/24 23:30 120/75 08/05/24 23:30 120/75 08/05/24 23:27 69 12 08/05/24 23:27 64 13 124/71 08/05/24 23:24 62 10 L 08/05/24 23:15 124/71 08/05/24 23:12 65 14 08/05/24 23:00 116/74 08/05/24 23:00 56 L 13 116/74 08/05/24 22:54 55 L 14 08/05/24 22:45 56 L 14 123/80 08/05/24 22:30 54 L 12 134/81 08/05/24 22:21 54 L 14 08/05/24 22:15 56 L 15 127/78 08/05/24 22:00 57 L 15 136/80 08/05/24 21:47 57 L 17 134/82 08/05/24 21:30 63 21 127/76 08/05/24 21:20 69 16 133/86 08/05/24 21:10 67 22 122/81 08/05/24 21:10 08/05/24 21:07 72 08/05/24 21:00 69 16 109/70 08/05/24 20:38 64 08/05/24 20:37 08/05/24 20:37 96.6 F L 72 16 109/67 Pulse Ox Pulse Ox O2 Del Method O2 Del Method 08/06/24 03:22 08/06/24 03:05 Room Air 08/06/24 03:05 99 Room Air 08/06/24 03:03 99 Room Air 08/06/24 03:03 99 Room Air 08/06/24 02:51 99 Room Air 08/06/24 02:44 08/06/24 02:44 08/06/24 02:44 99 08/06/24 02:36 97 08/06/24 02:18 98 08/06/24 01:24 96 08/06/24 01:00 96 08/06/24 01:00 08/06/24 00:57 97 08/06/24 00:33 95 08/06/24 00:15 99 08/06/24 00:12 08/06/24 00:12 08/06/24 00:06 08/06/24 00:03 98 08/05/24 23:33 100 08/05/24 23:30 08/05/24 23:30 08/05/24 23:27 100 08/05/24 23:27 100 Room Air 08/05/24 23:24 100 08/05/24 23:15 08/05/24 23:12 100 08/05/24 23:00 08/05/24 23:00 95 Room Air 08/05/24 22:54 96 08/05/24 22:45 99 Room Air 08/05/24 22:30 100 Room Air 08/05/24 22:21 96 08/05/24 22:15 96 Room Air 08/05/24 22:00 97 Room Air 08/05/24 21:47 97 Room Air 08/05/24 21:30 97 Room Air 08/05/24 21:20 99 Room Air 08/05/24 21:10 100 Room Air 08/05/24 21:10 100 Room Air 08/05/24 21:07 08/05/24 21:00 100 Room Air 08/05/24 20:38 08/05/24 20:37 100 Room Air 08/05/24 20:37 100 Room Air PG Care Time/CCT Total # of Minutes Spent Total Time Spent with Patient: Total time spent is greater than 50% in coordination of care (as documented) at patient's floor/unit and/or counseling patient: Coding Diagnoses Unresponsive episode R40.4 Chronic pain syndrome G89.4 Acute UTI (urinary tract infection) N39.0 Acute kidney injury superimposed on CKD N17.9; N18.9
--- NOTE | 2024-08-06 08:32 | XRay Report ---
XR chest 1V portable HISTORY: weakness COMPARISON: Chest 09/19/2023. FINDINGS: The cardiac silhouette is top normal in size.. The lungs are clear. Advanced degenerative c hanges within the right shoulder. No acute fractures. No evidence for pulmonary edema. No pleural eff usions. No pneumothorax. IMPRESSION: No acute process. ACT 112: Negative or not required by law. Electronically signed by: Dong Garibay M.D. 08/06/2024 8:31 AM
[2024-08-06 10:54] LABS: Amphetamines+Metham, Urine Neg (Neg); Barbiturates, Urine Neg (Neg); Benzodiazepine, Urine Neg (Neg); Cocaine, Urine Neg (Neg); Fentanyl, Urine Pos (Neg); MDMA (Ecstacy), Urine Pos (Neg); Marijuana, Urine Pos (Neg); Methadone, Urine Neg (Neg); Opiate, Urine Neg (Neg); Phencyclidine, Urine Neg (Neg)
[2024-08-06 11:24] VITALS: BP 126/72; RESP 16; TEMP 99.3; O2SAT 94
--- NOTE | 2024-08-06 13:24 | Electrocardiogram Report ---
Test Reason : Blood Pressure : */* mmHG Vent. Rate : 74 BPM Atrial Rate : 74 BPM P-R Int : 156 ms QRS Dur : 86 ms QT Int : 434 ms P-R-T Axes : 76 44 43 degrees QTcB Int : 481 ms Normal sinus rhythm Normal ECG When compared with ECG of 19-Sep-2023 19:46, Premature atrial complexes are no longer Present QT has lengthened Confirmed by Ha Issa ([id number]) on 08/06/2024 1:24:25 PM Referred By: REFERRED SELF Confirmed By: Ha Issa
[2024-08-06 15:14] VITALS: PULSE 64
--- NOTE | 2024-08-06 17:50 | Discharge Summary ---
Discharge Summary Date of Service August 06, 2024 Principal Dx & Hospital Course #1 = Principal Diagnosis (1) Unresponsive episode: Unresponsive episode- Likely secondary to a combination of fentanyl patch which had been removed , and 7 melatonin OTC patches, which EMS removed. Patient had a partial response to Narcan given in the field and in the ED Patient was educated on the use of fentanyl patches and encouraged to discuss her pain medications with her outpatient physician Unclear whether this could be metabolic encephalopathy from urinary tract infection present on admission she was discharged on Cipro we will continue to watch her urine culture for sensitivities and amend medications if need be (2) Chronic pain syndrome: Chronic pain syndrome- Patient was told to hold her fentanyl and oxycodone at discharge pending reassessment (3) Acute UTI (urinary tract infection): Urinary tract infection/diarrhea- Discharged on Cipro for 5 days (4) Acute kidney injury superimposed on CKD: Acute kidney injury superimposed on CKD 3/hypomagnesemia-likely ATN from unresponsiveness Creatinine improving and trending toward baseline Magnesium replete Plan Transaminitis- AST 116 ALT 76 Recommend outpatient follow-up avoidance of medications that cause liver irritation Hypothyroidism- TSH on screening labs 10.809, with free T4 in the normal range Can be readdressed as an outpatient Notes For Next Care Provider Patient likely may need a overall of her pain management regimen Follow-up of urinary infection would be beneficial Admission HPI Per Admitting Provider The patient is a 73-year-old female with a past medical history including hypertension, chronic shoulder pain, migraine, and chronic cough. She presented to the emergency department after family found her unresponsive at home, began CPR briefly, which was then discontinued. The patient presents otherwise as noted above. Discharge Exam Awake alert appropriate ambulating about the room wishes to go home Discharge Plan Discharge Items Patient Disposition: Home - Self-Care Reason For Visit: UNRESPONSIVE EPISODE Discharge Diagnosis: unintentional medication effect chronic pain symptoms Activity: Resume your previous activity Non-emergency contact: Primary Care Provider Call non-emergency contact if: your symptoms worsen Follow-up/Referrals: Bob Washington [Primary Care Provider] - (Pt will have to call after d/c to get f/u appt made. No schedulers in Dr. Washington office on 08/06, per answering [facility] [place]. 08/06@ [phone], taw) Diet: Regular Addtl Attending Provider Instructions: please discuss your pain management regimen with your primary care provider you have a urinary tract infection please complete your antibioitics Pending Studies at Discharge: Yes Studies:: final urine culture is not returned Stand-Alone Forms: My [facility], Smoking Cessation Medications and DC Order Prescriptions: New ciprofloxacin HCl [Cipro] 500 mg tablet 500 mg PO BID Qty: 10 0RF Continued benzonatate 200 mg capsule 200 mg PO TID PRN (Reason: cough) Qty: 20 0RF rizatriptan 5 mg tablet,disintegrating 5 mg PO DIRECTED PRN (Reason: Migraine Headache) multivitamin Tablet 1 tab PO DAILY losartan 25 mg Tablet 25 mg PO UD PRN (Reason: elevated bp) Patient Comments: last taken>2 weeks ago aspirin 81 mg Capsule 81 mg PO BID Qty: 60 0RF Held oxycodone 10 mg tablet 10 mg PO TID Hold Instructions: Provider's Order, please discuss use with primary care Discharge Orders: Discharge Order (Routine); Ordered 08/06/24 Ordered By: Estrada Dimas Admission Data Admit Date/Time: 08/06/24 00:19 Attending Provider: Estrada Dimas Admit Provider: Erich Mosquera Primary Care Provider: Bob Washington Other Providers: Erich Mosquera Other Interventions: Discharge Summary Assessment (RN) Last Done: 08/06/24 15:13 Hospital Stay Data Consultations 08/05/24 23:24 ED Decision to Admit Stat Diagnostic Imagining Performed 08/05/24 20:45 CT head/brain wo con Stat Pending Results Patient Have Any Pending Studies at Discharge: Yes Discharge Instructions Given to Patient (Per Discharging Provider) please discuss your pain management regimen with your primary care provider you have a urinary tract infection please complete your antibioitics Total Time Total Time Spent Total Time Spent (In Minutes): It required greater than 30 minutes to prepare this patient for discharge. Coding Level of Care Code 14867 INP/OBS DISCH >30 MIN Diagnoses Unresponsive episode R40.4 Chronic pain syndrome G89.4 Acute UTI (urinary tract infection) N39.0 Acute kidney injury superimposed on CKD N17.9; N18.9
[2024-08-06] MEDS ORDERED: cefTRIAXone SODIUM 2,000 MG/50 ML BAG IV SCH (21:00)
--- NOTE | 2024-08-11 08:50 | Coding Query ---
CODING QUERY To promote full compliance with coding requirements relating to patient care, provider participation is requested in all cases of delivery driver assistant uncertainty. Please assist us with the question(s) below: Clinical Indicators: ED Note: * presenting with an unresponsive episode * Patient had sonorous respirations and was given 2 mg of Narcan on EMS arrival. * She started to have improvement in her respiratory drive and was being transported to the hospital when she started become very sonorous breathing again and given an additional 1 mg of Narcan. * EMS reports that they pulled off 7 melatonin patches prehospital. * Patient is covered in fentanyl and melatonin patches. H&P: * Unresponsive episode * Likely secondary to a combination of fentanyl patch which had been removed yesterday, and 7 melatonin OTC patches, which EMS removed today. * Chronic pain syndrome- * Fentanyl patch 50 mcg changing every 3 days * Oxycodone 10 mg p.o. 3 times daily to 4 times daily * Zolpidem 5 mg p.o. at bedtime Discharge Summary: * Discharge Diagnosis: * Unintentional medication effect * Chronic pain symptoms Coding Question(s): Based on the clinical indicators above, are you able to further specify the unintentional effect as: ( ) Poisoning by fentanyl or fentanyl analogs, accidental (unintentional) (xxxx ) Adverse effect of fentanyl or fentanyl analogs ( ) Poisoning by other hormones and synthetic substitutes, accidental (unintentional) ( ) Adverse effect of other hormones and synthetic substitutes ( ) Other (please specify) ( ) Unable to determine. Thank you Paula Tim Principal Diagnosis: "that condition established after study, to be chiefly responsible for occasioning the admission of the patient to the hospital for care." Co-Existing Principal Diagnosis: "when two or more diagnoses equally meet the criteria for principal diagnosis as determined by the circumstances of admission, diagnostic work up, and/or therapy provided, and the Alphabetic Index, Tabular List, or another coding guideline does not provide sequencing direction, any one of the diagnoses may be sequenced first." "When the physician has documented what appears to be a current diagnosis in the body of the record, but has not included the diagnosis in the final diagnostic statement, the physician should be asked whether the diagnosis should be added." (Source Coding Clinic 2 QTR90. p3-4) YOVANNY
[2024-08-11 15:27] LABS: Fentanyl, Urine 23.9 ng/mL (<0.5); MDA negative; MDEA negative; MDMA (Ecstasy) Urine, Confirm negative; medMATCH Fentanyl, Urine DNR; medMATCH Norfentanyl, Urine DNR
== END 2024-08-06 17:58 | disposition home or self-care (01) ==
LOC: ED 20:40 → INTOOBSV 08-06 00:19 → SUATTDRO 08-06 00:19 → 2W 08-06 00:19

== ENCOUNTER 2024-12-17 08:46 | Inpatient (IN) ==
--- NOTE | 2024-12-17 09:08 | Emergency Department Note ---
Impression & Plan Encephalopathy ADMIT ED Provider Note HPI: History obtained from patient. The patient is a 74-year-old female who presents the emergency department with a chief complaint of altered mental status. Patient has a history of polypharmacy/opioid overdose, her states that last night at about 6:30 PM he came home and she was unresponsive. He states that he gave her intranasal Narcan and she seemed to wake up to the point where he felt comfortable leaving her at home. He states that he monitored her overnight and she seemed to be breathing appropriately but this morning she was still altered and lethargic and therefore he brought her to the emergency room by private vehicle for further management. Patient's states that last night when she was given the Narcan they did note that she had 2 fentanyl patches in her mouth that her daughter removed. On arrival here to the ED the patient is alert to verbal stimuli but she is hypertensive, she is otherwise lethargic appearing, she ambulates all extremity spontaneously, heart rate is within normal limits, patient is afebrile on arrival and saturating well on room air. ROS: - Per HPI Differential Diagnosis: Polysubstance abuse/opioid overdose, polypharmacy with altered mentation, stroke, intracranial hemorrhage, sepsis, urinary tract infection with encephalopathy, alcohol intoxication, amongst other potential pathologies. *Outpatient medications and allergy history reviewed. PE: General: Alert to verbal stimuli, otherwise lethargic appearing, frail-appearing HEENT: Normocephalic, trachea midline, dry mucous membranes Eyes: Extraocular eye movement is intact, no scleral erythema Pulmonary: Clear to auscultation bilaterally, no wheezing Cardio: Regular rate and rhythm GI: Abdomen is soft to palpation : No suprapubic tenderness MSK: No evidence of trauma or malformation of the extremities, no edema Skin: No evidence of rash Neuro: Alert, no focal deficits Psychiatric: Cooperative INDEPENDENT INTERPRETATIONS: court recording monitor: (As interpreted by myself): - An order was placed for continuous cardiac monitoring - Patient was noted to be in sinus rhythm with a rate of 101 EKG: (As interpreted by myself): Rate: 107 Rhythm: Sinus tachycardia Intervals: Within normal limits ST changes: No ST elevation Time: 0900 Chest x-ray: (As interpreted by myself): No acute findings Interventions provided in ED: -IV fluid bolus, IV hydralazine, IV ertapenem, IV Narcan Medical Decision Making: Shortly after the patient arrived IV was established and lab work obtained, patient was placed on classroom monitor. Patient is somewhat lethargic appearing on arrival, she has had a history of similar presentation associated with polypharmacy and opioid abuse. CT imaging of the head was obtained that does not show any evidence of any acute intracranial process. Chest x-ray does not show any evidence of acute disease. Lab work otherwise shows a mild leukocytosis at 11.59, hemoglobin is normal, platelet count is normal, CMP does not show any evidence of any critical findings. Blood glucose level is 124, there is mild transaminitis with AST of 96 and ALT of 103. Troponin is negative. Urinalysis shows possible infection, urine nitrite is positive, 2+ leukocyte esterase, will send for culture and the patient will be treated prophylactically with ertapenem given history of ESBL. Blood cultures were drawn. On my reassessment the patient remains lethargic, she did have a transient improvement in her mentation when she was given a dose of IV Narcan here in the ED. She will require admission and observation. This was discussed with her who is in agreement. Of note patient's urine drug screen did return positive for opiates and fentanyl. I discussed the patient's presentation with the on-call hospitalist, Dr. Lee, and the patient was placed for admission in stable condition. Consultants/Discussions held with other healthcare providers: -Hospitalist, Dr. Lee Disposition discussion held by myself with: -Patient and patient's * CRITICAL CARE TIME: ( 35 ) minutes -Time spent at the bedside independent of any procedures and management of patient with acute encephalopathy, hypertension, and urinary tract infection, interpretation of diagnostic studies, time spent at the bedside discussion with family, discussion with other healthcare providers and arrangement of admission. Diagnosis: 1. Altered mental status, acute 2. Opioid abuse/misuse, acute on chronic 3. Urinary tract infection, acute 4. Hypertension, acute 5. Leukocytosis, acute 6. Transaminitis, chronic, stable Disposition: Admission Shree Shi DO Emergency Medicine Past Med/Surg History Problem List (Updated 12/17/24 @ 12:48 by Shree Shi DO) Encephalopathy (Acute) Adverse reaction to drug Encounter for pre-operative examination Bimalleolar fracture of left ankle Medical History Degenerative disc disease Arthritis Ankle fracture, left History of TMJ disorder Migraine Hypertension Surgical History History of total hip arthroplasty History of total knee replacement Family History Other No family history of adverse response to anesthesia Social History Smoking Status: Never smoker Second Hand Exposure: Yes (as a child); Hx Alcohol Use: Yes Alcohol type: wine Hx Substance Use: No Preferred Language: Yemeni Communication Ability: Effective Clerical Transcriber Required: No Beliefs That Will Affect Care: None Current Living Situation: Spouse and Family Feels Safe at Home: Yes Assistive Devices: None Allergies Allergies Allergy/AdvReac Type Severity Reaction Status Date / Time dicyclomine [From Bentyl] AdvReac Urticaria Verified 12/17/24 12:04 Home Meds Home Medications Medication Instructions Recorded Confirmed oxycodone 10 mg tablet 10 mg PO TID PRN Pain 04/13/23 12/17/24 rizatriptan 5 mg disintegrating 5 mg PO DIRECTED PRN Migraine 04/13/23 12/17/24 tablet Headache losartan 25 mg tablet 25 mg PO QAM 04/19/23 12/17/24 multivitamin 1 tab PO DAILY 04/19/23 12/17/24 amlodipine 0 mg PO DAILY 12/17/24 12/17/24 fentanyl 25 mcg/hr transdermal 1 patch topical Q72H 12/17/24 12/17/24 patch hydrochlorothiazide 25 mg tablet 25 mg PO QAM 12/17/24 12/17/24 metformin 500 mg tablet 500 mg PO QAM 12/17/24 12/17/24 potassium chloride 0 meq PO DAILY 12/17/24 12/17/24 Results & Data (ED) Vital Signs Vital Signs - 24 hr 12/17/24 08:49 12/17/24 09:06 12/17/24 09:18 Temperature 36.5 C Temperature Source Temporal Artery Scan Pulse Rate 70 108 H 108 H Pulse Rate [Apical] Pulse Rate from SpO2 Sensor 108 H Respiratory Rate 18 20 15 Respiratory Effort / Characteristics Non-Labored Spontaneous Respiratory Depth Normal Blood Pressure 184/134 H 183/112 H Blood Pressure [Left Arm] Blood Pressure Mean 150 153 Blood Pressure Mean [Left Arm] Blood Pressure Position Sitting Blood Pressure Position [Left Arm] Pulse Oximetry 99 97 96 Oxygen Delivery Method Room Air Room Air Sepsis Recent Fever Within 48 Hours No Sepsis New/Unexplained Change in Mental Status No Sepsis Action Taken by Nursing No Action Required 12/17/24 09:28 12/17/24 09:53 12/17/24 10:00 Temperature Temperature Source Pulse Rate 99 H 98 H 101 H Pulse Rate [Apical] Pulse Rate from SpO2 Sensor Respiratory Rate 21 18 Respiratory Effort / Characteristics Respiratory Depth Blood Pressure 193/116 H 184/111 H Blood Pressure [Left Arm] Blood Pressure Mean 171 146 Blood Pressure Mean [Left Arm] Blood Pressure Position Blood Pressure Position [Left Arm] Pulse Oximetry 98 99 Oxygen Delivery Method Room Air Sepsis Recent Fever Within 48 Hours Sepsis New/Unexplained Change in Mental Status Sepsis Action Taken by Nursing 12/17/24 10:15 12/17/24 10:32 12/17/24 10:32 Temperature Temperature Source Pulse Rate 98 H 102 H Pulse Rate [Apical] Pulse Rate from SpO2 Sensor Respiratory Rate 20 17 Respiratory Effort / Characteristics Respiratory Depth Blood Pressure 188/110 H Blood Pressure [Left Arm] Blood Pressure Mean 156 Blood Pressure Mean [Left Arm] Blood Pressure Position Blood Pressure Position [Left Arm] Pulse Oximetry 98 98 98 Oxygen Delivery Method Room Air Room Air Sepsis Recent Fever Within 48 Hours Sepsis New/Unexplained Change in Mental Status Sepsis Action Taken by Nursing 12/17/24 11:00 12/17/24 12:36 Temperature Temperature Source Pulse Rate 104 H Pulse Rate [Apical] 103 H Pulse Rate from SpO2 Sensor Respiratory Rate 24 25 H Respiratory Effort / Characteristics Respiratory Depth Blood Pressure 183/118 H Blood Pressure [Left Arm] 189/116 H Blood Pressure Mean 141 Blood Pressure Mean [Left Arm] 140 Blood Pressure Position Blood Pressure Position [Left Arm] Semi-fowlers Pulse Oximetry 97 Oxygen Delivery Method Room Air Sepsis Recent Fever Within 48 Hours Sepsis New/Unexplained Change in Mental Status Sepsis Action Taken by Nursing Laboratory Data 12/17/24 09:11 12/17/24 09:11 Lab Results 12/17/24 12/17/24 Range/Units 09:11 09:31 WBC 11.59 H (4.8-10.8) K/ul RBC 4.86 (4.20-5.40) M/uL Hgb 12.7 (12.0-16.0) g/dl Hct 39.0 (37.0-47.0) % MCV 80.2 (80.0-100.0) fL MCH 26.1 (25.0-34.0) pg MCHC 32.6 (32.0-36.0) g/dL RDW Std Deviation 49.4 H (36.4-46.3) fL RDW Coeff of Alia 17.0 H (11.5-14.5) % Plt Count 350 (130-400) K/uL MPV 9.1 L (9.4-12.4) fL Immature Gran % (Auto) 0.8 % Neut % (Auto) 72.4 % Lymph % (Auto) 21.1 % Morrill % (Auto) 5.1 % Eos % (Auto) 0.1 % Baso % (Auto) 0.5 % Neut # (Auto) 8.39 H (1.40-6.50) K/uL Lymph # (Auto) 2.45 (1.20-3.40) K/uL Morrill # (Auto) 0.59 (0.11-0.59) K/uL Eos # (Auto) 0.01 (0.00-0.50) K/uL Baso # (Auto) 0.06 (0.00-0.20) K/uL Immature Gran # (Auto) 0.09 (0.01-0.20) K/uL PT 11.6 (9.0-12.0) Seconds INR 1.1 (0.9-1.1) Sodium 136 (136-145) mmol/L Potassium 4.2 (3.5-5.1) mmol/L Chloride 104 (98-107) mmol/L Carbon Dioxide 23 (21-32) mmol/L Anion Gap 9 (3-11) BUN 26 H (6-23) mg/dl Creatinine 0.94 (0.6-1.2) mg/dl Est Cr Clr Drug Dosing 37.7 ml/min eGFR 63.67 BUN/Creatinine Ratio 27.7 H (10-20) Glucose 124 H (70-99(Fasting)) mg/dl POC Glucose 128 H (70-99) mg/dl Calcium 9.5 (8.6-10.3) mg/dl Total Bilirubin 0.4 (0.2-1.0) mg/dl AST 96 H (13-39) U/L ALT 103 H (7-52) U/L Alkaline Phosphatase 89 (34-104) U/L Troponin I High Sens 13.3 (0-14) pg/ml Total Protein 8.3 (6.0-8.3) gm/dl Albumin 4.2 (3.4-5.0) gm/dl Globulin 4.1 H (2.5-4.0) gm/dl Albumin/Globulin Ratio 1.0 (0.9-2) Lipase 22 (11-82) U/L Urine Color Yellow Urine Appearance Clear (Clear) Urine pH 5.5 (4.5-7.5) Ur Specific Grant 1.018 (1.000-1.030) Urine Protein Trace H (Negative) Urine Glucose (UA) Negative (Negative) Urine Ketones Trace H (Negative) Urine Blood Negative (Negative) Urine Nitrite Positive A (Negative) Urine Bilirubin Negative (Negative) Urine Urobilinogen Negative (Negative) Ur Leukocyte Esterase 2+ H (Negative) Urine WBC (Auto) 21-50 H (0-5) /hpf Urine RBC (Auto) 0-2 (0-2) /hpf U Hyaline Cast (Auto) 0-2 (0-2) /lpf U Epithel Cells (Auto) 0-2 (0-2) /hpf Urine Bacteria (Auto) 4+ H (None Seen) Salicylates < 3.0 L (3.0-30) mg/dl Urine Opiates Screen Pos H (Neg) Ur Methadone, Qual Neg (Neg) Urine Fentanyl Screen Pos H (Neg) Acetaminophen < 3 L (10-30) ug/ml Urine Barbiturates Neg (Neg) Ur Phencyclidine (PCP) Neg (Neg) U Amphetamin/Meth Scrn Neg (Neg) MDMA (Ecstasy) Screen Neg (Neg) U Benzodiazepines Scrn Neg (Neg) Ur Cocaine Metabolite Neg (Neg) U Marijuana (THC) Screen Neg (Neg) Ethyl Alcohol mg/dL < 10.0 (<10.0) mg/dl Administered Medications Discontinued Medications Hydralazine HCl (Hydralazine Hcl 20 Mg/Ml Vial) 5 mg IV NOW ONE Stop: 12/17/24 10:14 Last Admin: 12/17/24 10:21 Dose: 5 mg Documented By: KERI Sodium Chloride (Nss) 1,000 mls @ 999 mls/hr IV .Q1H1M ONE Stop: 12/17/24 10:04 Last Infusion: 12/17/24 10:16 Dose: Infused Documented By: Admin: 12/17/24 09:13 Dose: 999 mls/hr Documented By: KERI Ceftriaxone Sodium (Rocephin) 2,000 mg in 50 mls @ 100 mls/hr IV NOW STA Stop: 12/17/24 11:00 Last Admin: 12/17/24 10:42 Dose: Not Given Documented By: KERI Ertapenem (Invanz 1000mg) 1,000 mg in 10 mls @ 2 mls/min IV NOW STA Stop: 12/17/24 10:45 Last Admin: 12/17/24 11:43 Dose: 2 mls/min Documented By: KANDACE Naloxone HCl (Naloxone Hcl 0.4 Mg/1 Ml Vial/Carp) 0.4 mg IV NOW STA Stop: 12/17/24 09:09 Last Admin: 12/17/24 09:13 Dose: 0.4 mg Documented By: KERI Imaging Data Radiologist's Impression: Head CT 12/17/24 09:05 CT head/brain wo con CLINICAL HISTORY: AMS Technique: Contiguous axial CT images of the head were acquired from the base of the skull to the vertex without intravenous contrast administration. Images were viewed in brain, subdural and bone windows. Automated dose lowering techniques and/or adjustment according to patient size were utilized for this exam. Comparison: Comparison is made to CT head 08/05/2024 Findings: Areas of decreased attenuation are present in the periventricular and subcortical white matter bilaterally consistent with small vessel ischemic disease. Generalized cerebral atrophy with commensurate enlargement of the ventricles, sulci, and cisterns is also present. There is no acute intracranial hemorrhage or evidence of acute territorial infarction. No shift of the midline structures, mass effect, or extra-axial abnormalities are shown. Atherosclerotic calcifications are present in the intracranial segments of the internal carotid arteries. Opacification of ethmoid, sphenoid, and right greater than left maxillary sinuses as well as the majority of the frontal sinuses The orbits appear normal. There are no acute fractures of the calvaria or scalp swelling. Impression: 1. No acute intracranial hemorrhage, no evidence of acute territorial infarction or other acute intracranial disease process. 2. Extensive sinus disease. ACT 112: Negative or not required by law. Electronically signed by: Taz Mcdermott M.D. 12/17/2024 10:00 AM Chest X-Ray 12/17/24 11:54 XR chest 1V portable CLINICAL HISTORY: Unresponsive episode COMPARISON STUDY: 08/05/2024 FINDINGS: Heart size and pulmonary vasculature are normal. No effusion, consolidation, or pneumothorax. IMPRESSION: No acute findings. ACT 112: Negative or not required by law. Electronically signed by: Miguel Laureano M.D. 12/17/2024 12:29 PM Discharge Plan Visit Data Chief Complaint: Overdose (Intentional) Stated Complaint: OVERDOSE, TOOK NARCAN ED Provider: Shree Shi Discharge Problem: Encephalopathy Patient Disposition: Admitted As Inpatient Forms Stand Alone Forms: [facility], Suicide Prevention Resources Prescriptions Prescriptions: No Action rizatriptan 5 mg tablet,disintegrating 5 mg PO DIRECTED PRN (Reason: Migraine Headache) oxycodone 10 mg tablet 10 mg PO TID PRN (Reason: Pain) Hold Instructions: Provider's Order, please discuss use with primary care multivitamin Tablet 1 tab PO DAILY losartan 25 mg Tablet 25 mg PO QAM Patient Comments: last taken>2 weeks ago metformin 500 mg tablet 500 mg PO QAM hydrochlorothiazide 25 mg tablet 25 mg PO QAM fentanyl 25 mcg/hr patch 72 hour 1 patch topical Q72H amlodipine 0 mg PO DAILY potassium chloride 0 meq PO DAILY Referrals Referrals: Bob Washington [Primary Care Provider] -
[2024-12-17] MEDS: NALOXONE HCL 0.4 MG/1 ML VIAL/CARP IV STA (09:13)
[2024-12-17] MEDS: SODIUM CHLORIDE 0.9% 1,000 ML IV ONE (09:13)
[2024-12-17 09:27] LABS: Basophils # (auto) 0.06 K/uL (0.00-0.20); Basophils % (auto) 0.5 %; Eosinophils # (auto) 0.01 K/uL (0.00-0.50); Eosinophils % (auto) 0.1 %; Hemoglobin 12.7 g/dl (12.0-16.0); Immature Granulocytes # (auto) 0.09 K/uL (0.01-0.20); Immature Granulocytes % (auto) 0.8 %; Lymphocytes # (auto) 2.45 K/uL (1.20-3.40); Lymphocytes % (auto) 21.1 %; Mean Corpuscular Hemoglobin 26.1 pg (25.0-34.0); Mean Corpuscular Hgb Conc 32.6 g/dL (32.0-36.0); Mean Corpuscular Volume 80.2 fL (80.0-100.0); Mean Platelet Volume 9.1 fL (9.4-12.4); Monocytes # (auto) 0.59 K/uL (0.11-0.59); Monocytes % (auto) 5.1 %; Neutrophils # (auto) 8.39 K/uL (1.40-6.50); Neutrophils % (auto) 72.4 %; Platelet Count 350 K/uL (130-400); RDW Standard Deviation 49.4 fL (36.4-46.3); Red Blood Count 4.86 M/uL (4.20-5.40); White Blood Count 11.59 K/ul (4.8-10.8)
[2024-12-17 09:39] LABS: Acetaminophen < 3 ug/ml (10-30); Salicylate < 3.0 mg/dl (3.0-30)
[2024-12-17 09:50] LABS: Albumin Level 4.2 gm/dl (3.4-5.0); BUN Creatinine Ratio 27.7 (10-20); Bilirubin,Total 0.4 mg/dl (0.2-1.0); Calcium 9.5 mg/dl (8.6-10.3); Creatinine Clr Calc Pharmacy 37.7 ml/min; Globulin 4.1 gm/dl (2.5-4.0); Potassium 4.2 mmol/L (3.5-5.1); Total Protein 8.3 gm/dl (6.0-8.3)
[2024-12-17 09:55] LABS: INR 1.1 (0.9-1.1); Prothrombin Time 11.6 Seconds (9.0-12.0)
[2024-12-17 09:56] LABS: Troponin I High Sensitivity 13.3 pg/ml (0-14)
[2024-12-17 10:02] LABS: Appearance Urine Clear (Clear); Bacteria Urine Automated 4+ (None Seen); Bilirubin Urine Negative (Negative); Blood Urine Negative (Negative); Cast Urine Automated 0-2 /lpf (0-2); Color Urine Yellow; Epithelial Cell Urine Auto 0-2 /hpf (0-2); Glucose Urine UA Negative (Negative); Ketones Urine Trace (Negative); Leukocyte Esterase Urine 2+ (Negative); Nitrite Urine Positive (Negative); Protein Urine Trace (Negative); RBC Urine Automated 0-2 /hpf (0-2); Specific Gravity Urine 1.018 (1.000-1.030); Urobilinogen Urine Negative (Negative); WBC Urine Automated 21-50 /hpf (0-5); pH Urine 5.5 (4.5-7.5)
--- NOTE | 2024-12-17 10:02 | CT Scan Report ---
CT head/brain wo con CLINICAL HISTORY: AMS Technique: Contiguous axial CT images of the head were acquired from the base of the skull to the akhil grace without intravenous contrast administration. Images were viewed in brain, subdural and bone windo ws. Automated dose lowering techniques and/or adjustment according to patient size were utilized for this exam. Comparison: Comparison is made to CT head 08/05/2024 Findings: Areas of decreased attenuation are present in the periventricular and subcortical white matter bilate rally consistent with small vessel ischemic disease. Generalized cerebral atrophy with commensurate e nlargement of the ventricles, sulci, and cisterns is also present. There is no acute intracranial hem orrhage or evidence of acute territorial infarction. No shift of the midline structures, mass effect, or extra-axial abnormalities are shown. Atherosclerotic calcifications are present in the intracran ial segments of the internal carotid arteries. Opacification of ethmoid, sphenoid, and right greater than left maxillary sinuses as well as the stephanie rity of the frontal sinuses The orbits appear normal. There are no acute fractures of the calvaria or scalp swelling. Impression: 1. No acute intracranial hemorrhage, no evidence of acute territorial infarction or other acute intr acranial disease process. 2. Extensive sinus disease. ACT 112: Negative or not required by law. Electronically signed by: Taz Mcdermott M.D. 12/17/2024 10:00 AM
[2024-12-17] MEDS: hydrALAZINE HCL 20 MG/ML VIAL IV ONE (10:21)
[2024-12-17 10:35] LABS: Amphetamines+Metham, Urine Neg (Neg); Barbiturates, Urine Neg (Neg); Benzodiazepine, Urine Neg (Neg); Cocaine, Urine Neg (Neg); Fentanyl, Urine Pos (Neg); MDMA (Ecstacy), Urine Neg (Neg); Marijuana, Urine Neg (Neg); Methadone, Urine Neg (Neg); Opiate, Urine Pos (Neg); Phencyclidine, Urine Neg (Neg)
[2024-12-17] MEDS: cefTRIAXone SODIUM 2,000 MG/50 ML BAG IV STA (10:42)
[2024-12-17] MEDS: ERTAPENEM IV STA (11:43)
[2024-12-17] MEDS: [UNRECOGNIZED DRUG - OTHER] IV STA (11:43)
--- NOTE | 2024-12-17 11:48 | Electrocardiogram Report ---
Test Reason : Blood Pressure : */* mmHG Vent. Rate : 107 BPM Atrial Rate : 107 BPM P-R Int : 182 ms QRS Dur : 94 ms QT Int : 338 ms P-R-T Axes : 68 30 54 degrees QTcB Int : 451 ms Sinus tachycardia Otherwise normal ECG When compared with ECG of 05-Aug-2024 20:46, No significant change was found Confirmed by Jacinto Perez ([id number]) on 12/17/2024 11:47:44 AM Referred By: Confirmed By: Jacinto Perez
--- NOTE | 2024-12-17 11:56 | History & Physical Report ---
Date of Service December 17, 2024 Assessment & Plan (1) Opiate overdose: Plan: Hold Fentanyl and oxycodone. RR currently > 8 and although somnolent is opening eyes. GCS 10 (E3V2M5) VBG, End tidal CO2 monitoring. Naloxone 0.1mg IV PRN for oversedation, respiratory depression (call provider if used) Consult psychiatry as appears to have been intentional NPO with IV fluids with currently level of sedation (2) Encephalopathy: Plan: Suspect secondary to opiates Less likely UTI (3) UTI (urinary tract infection): Plan: Unable to determine if contributory at time of admission Will cover for prior ESBL E. coli with ertapenem. Previously this was treated with ciprofloxacin (subsequently resistant to this) with improvement in her sy mptoms suggestive not UTI causing her symptoms (4) Transaminitis: Plan: Appears to be at her baseline, will continue to trend ?secondary to alcohol use Plan VTE Prophylaxis - Lovenox 40mg SQ daily Diet - NPO pending improvement in cognitive state Disposition - observation to PCU Admission and Anticipated Discharge Date Admission Date: December 17, 2024 History of Present Illness Chief Complaint: Unresponsive state Primary Care Provider: Bob Washington Britni Stone is a 74 year old female with chronic opiate use who presents to the ER following an unresponsive episode. Daughter found her in floor of bathroom unresponsive with Fentanyl patches in her mouth, fallen down last night around 5:45pm. Unknown if she had hit her head when her asked her this morning. Tried to get her to bed but she had to be lifted. She was given a dose of na loxone in the bathroom and became more responsive. She was observed by her overnight who had to give an additional dose of naloxone around 7:30pm for respiratory depression. She was unable to tell her today why she had the Fentanyl patch in her mouth. No known urinary symptoms. Previously she was taking Seroquel although her notes this was tapered off any discontinued a month ago. She was unable to take any of her medications today. He is unsure of her amlodipine dosing but will find this out when he goes home. Allergies Allergy/AdvReac Type Severity Reaction Status Date / Time dicyclomine [From Bentyl] AdvReac Urticaria Verified 12/17/24 12:04 Home Medications Medication Instructions Recorded Confirmed Type oxycodone 10 mg tablet 10 mg PO TID PRN Pain 04/13/23 12/17/24 History rizatriptan 5 mg disintegrating 5 mg PO DIRECTED PRN Migraine 04/13/23 12/17/24 History tablet Headache losartan 25 mg tablet 25 mg PO QAM 04/19/23 12/17/24 History multivitamin 1 tab PO DAILY 04/19/23 12/17/24 History amlodipine 0 mg PO DAILY 12/17/24 12/17/24 History fentanyl 25 mcg/hr transdermal 1 patch topical Q72H 12/17/24 12/17/24 History patch hydrochlorothiazide 25 mg tablet 25 mg PO QAM 12/17/24 12/17/24 History metformin 500 mg tablet 500 mg PO QAM 12/17/24 12/17/24 History potassium chloride 0 meq PO DAILY 12/17/24 12/17/24 History Past Med/Surg History Problem List (Updated 12/17/24 @ 18:09 by Lester Lee MD) UTI (urinary tract infection) Opiate overdose Encephalopathy (Acute) Adverse reaction to drug Bimalleolar fracture of left ankle Medical History Degenerative disc disease Arthritis Ankle fracture, left History of TMJ disorder Migraine Hypertension Surgical History History of total hip arthroplasty History of total knee replacement Family History Other No family history of adverse response to anesthesia Social History Smoking Status: Never smoker Second Hand Exposure: Yes (as a child); Hx Alcohol Use: Yes Alcohol type: wine Hx Substance Use: No Preferred Language: Maori Communication Ability: Effective Cms Expert Required: No Beliefs That Will Affect Care: None Current Living Situation: Spouse Feels Safe at Home: Yes Assistive Devices: Glasses and Walker Review of Systems Review of Systems: Unobtainable due to cognitive status Physical Exam Constitutional: well developed; + not well nourished and no acute distress Eyes: PERRL, conjunctivae normal, anicteric sclerae (pupils dilated, [id number] with exam looking down and to right side) ENMT: Mouth: + dry oral mucous membranes Respiratory: normal respiratory effort, lungs clear to auscultation Cardiovascular: Rate/Rhythm: regular rhythm and + tachycardic Heart Sounds: no murmur Gastrointestinal (Abdomen): normal bowel sounds, soft, nontender, no hepatosplenomegaly Skin: no rashes, warm and dry Neurologic: awake (to voice, GCS 10 (E3V2M5)) Not following commands for full neurological exam Results & Data Results & Data Vital Signs (Past 12 Hours) Vital Signs Temp Pulse Resp BP Pulse Ox O2 Del Method 12/17/24 11:00 104 H 24 183/118 H 12/17/24 10:32 102 H 17 98 Room Air 12/17/24 10:32 98 Room Air 12/17/24 10:15 98 H 20 188/110 H 98 12/17/24 10:00 101 H 18 184/111 H 99 12/17/24 09:53 98 H 21 193/116 H 98 Room Air 12/17/24 09:28 99 H 12/17/24 09:18 108 H 15 183/112 H 96 Room Air 12/17/24 09:06 108 H 20 97 12/17/24 08:49 36.5 C 70 18 184/134 H 99 Room Air Laboratory Results Abnormal lab results 12/17/24 12/17/24 Range/Units 09:11 09:31 WBC 11.59 H (4.8-10.8) K/ul RDW Std Deviation 49.4 H (36.4-46.3) fL RDW Coeff of Alia 17.0 H (11.5-14.5) % MPV 9.1 L (9.4-12.4) fL Neut # (Auto) 8.39 H (1.40-6.50) K/uL BUN 26 H (6-23) mg/dl BUN/Creatinine Ratio 27.7 H (10-20) Glucose 124 H (70-99(Fasting)) mg/dl POC Glucose 128 H (70-99) mg/dl AST 96 H (13-39) U/L ALT 103 H (7-52) U/L Globulin 4.1 H (2.5-4.0) gm/dl Urine Protein Trace H (Negative) Urine Ketones Trace H (Negative) Urine Nitrite Positive A (Negative) Ur Leukocyte Esterase 2+ H (Negative) Urine WBC (Auto) 21-50 H (0-5) /hpf Urine Bacteria (Auto) 4+ H (None Seen) Salicylates < 3.0 L (3.0-30) mg/dl Urine Opiates Screen Pos H (Neg) Urine Fentanyl Screen Pos H (Neg) Acetaminophen < 3 L (10-30) ug/ml Diagnostic Findings CT head/brain wo con CLINICAL HISTORY: AMS Technique: Contiguous axial CT images of the head were acquired from the base of the skull to the vertex without intravenous contrast administration. Images were viewed in brain, subdural and bone windows. Automated dose lowering techniques and/or adjustment according to patient size were utilized for this exam. Comparison: Comparison is made to CT head 08/05/2024 Findings: Areas of decreased attenuation are present in the periventricular and subcortical white matter bilaterally consistent with small vessel ischemic disease. Generalized cerebral atrophy with commensurate enlargement of the ventricles, sulci, and cisterns is also present. There is no acute intracranial hemorrhage or evidence of acute territorial infarction. No shift of the midline structures, mass effect, or extra-axial abnormalities are shown. Atherosclerotic calcifications are present in the intracranial segments of the internal carotid arteries. Opacification of ethmoid, sphenoid, and right greater than left maxillary sinuses as well as the majority of the frontal sinuses The orbits appear normal. There are no acute fractures of the calvaria or scalp swelling. Impression: 1. No acute intracranial hemorrhage, no evidence of acute territorial infarction or other acute intracranial disease process. 2. Extensive sinus disease. Medications Administered ER medications given: Normal saline 1 L bolus Naloxone 0.4 mg IV Hydralazine 5 mg IV Ceftriaxone not given Ertapenem 1000 mg IV ECG Rate (beats per minute): 107 Rhythm: sinus tachycardia Findings: no acute ischemic change Comparison ECG Date: from (August 05, 2024) Change: no significant change Code Status & VTE Plan Code Status Full VTE Prophylaxis Plan VTE Prophylaxis will be ordered: Yes PG Care Time/CCT Total # of Minutes Spent Total Time Spent with Patient: Total time spent is greater than 50% in coordination of care (as documented) at patient's floor/unit and/or counseling patient: Coding Level of Care Code 38551 INT INP/OBS CARE 3/75MIN Diagnoses Opiate overdose T40.601A Encephalopathy G93.40 UTI (urinary tract infection) N39.0 Transaminitis R74.01
--- NOTE | 2024-12-17 12:30 | XRay Report ---
XR chest 1V portable CLINICAL HISTORY: Unresponsive episode COMPARISON STUDY: 08/05/2024 FINDINGS: Heart size and pulmonary vasculature are normal. No effusion, consolidation, or pneumothora x. IMPRESSION: No acute findings. ACT 112: Negative or not required by law. Electronically signed by: Miguel Laureano M.D. 12/17/2024 12:29 PM
[2024-12-17 13:26] LABS: Thyroid Stimulating Hormone 2.535 uIu/ml (0.300-4.500)
--- NOTE | 2024-12-17 13:55 | XRay Report ---
XR hip GABRIELLE 2v w pelvis CLINICAL HISTORY: fall ?fracture TECHNIQUE: 2 views of the bilateral hips and single frontal view of the pelvis were obtained. Comparison: None available at the time of this dictation. FINDINGS: There is no evidence of an acute fracture. Right hip arthroplasty is seen. Degenerative changes are s een in the lumbar spine and left hip. No soft tissue abnormality is seen. IMPRESSION: No evidence of acute osseous injury. ACT 112: Negative or not required by law. Electronically signed by: Taz Mcdermott M.D. 12/17/2024 1:53 PM
[2024-12-17] MEDS: LOSARTAN POTASSIUM 25 MG TAB PO SCH (16:06)
[2024-12-17 19:14] LABS: Base Excess VBG -2.9 mEq/L; HCO3 VBG 21 mmol/L; Oxygen Saturation VBG 95.7 %; PCO2 VBG 33 mmHg (38-50); PO2 VBG 69 mmHg; pH VBG 7.41 (7.36-7.41)
[2024-12-17] MEDS: ENOXAPARIN INJ 40 MG/0.4 ML SYR SQ SCH (20:16)
[2024-12-17] MEDS: SODIUM CHLOR 0.45% + 20MEQ KCL 20 MEQ/1,000 ML BAG IV SCH (20:16)
[2024-12-17] MEDS: METOPROLOL TARTRATE 1 MG/ML VIAL IV ONE (23:55)
[2024-12-18] MEDS: ENALAPRILAT 1.25 MG in DEXTROSE 5% 25 ML IV STA
[2024-12-18] MEDS: ENALAPRILAT 1.25 MG in DEXTROSE 5% 25 ML IV PRN (01:21)
--- NOTE | 2024-12-18 04:51 | Communication Note ---
Date of Service: December 18, 2024 Patient with spontaneous eye opening but pupils noted to be mildly anisocoric. Gaze focused on certain point in right side and pupillary reflex present b ilaterally but slightly sluggish. Patient somnolent but arousable. Patient with hypertension of > 160 systolic and > 110 since admission despite hydralazine x1 in the ED, Lopressor x1 on arrival to the floor, and Vasotec. Given findings, order a repeat head CT for reassessment which fortunately was negative for acute infarct or hemorrhage. Order for labetalol 5 mg IV x1 added for BP control. Resident Activity Tracking Resident Involvement: Resident Care Provided Care Provided: Adult Hospital Medicine
[2024-12-18] MEDS: LABETALOL HCL IV 5 MG/ML 20ML IV ONE ×2 (05:06→05:14)
--- NOTE | 2024-12-18 05:37 | CT Scan Report ---
EXAM: CT head/brain wo con CLINICAL HISTORY: HTN; anisocoria TECHNIQUE: Axial non-contrast CT scan of the brain was performed from the skull base to the high parietal region. One of the following dose reduction techniques were utilized for this exam: Automated exposure control, adjustment of the mA and/or kV according to patient size, use of iterative reconstruction. CTDI: 35.72 , DLP: 625.80 COMPARISON: CT 08/05/2024. FINDINGS: Brain Parenchyma: Mild age related atrophic changes as noted by mild widening of sulci, fissures and cisterns. Mild periventricular hypodensity consistent with old microvascular related changes. No evidence of acute infarct, hemorrhage, or mass effect. No abnormal areas of hypo- or hyperattenuation. Ventricular System: Ventricles are normal in size and configuration. No evidence of hydrocephalus or ventricular enlargement. Subarachnoid Spaces: Normal sulci and cisterns. No evidence of subarachnoid hemorrhage or extra-axial fluid collections. Cerebellum and Brainstem: Normal size and signal. No masses, lesions, or areas of abnormal signal. Orbits: Normal appearance of the globes, optic nerves, and extraocular muscles. No evidence of orbital masses or abnormal signal. Sinuses: Mucosal thickening and filling of all paranasal sinuses. Mastoid Air Cells: Clear mastoid air cells. No evidence of mastoiditis. Skull: Normal skull morphology. IMPRESSION: 1. Interval new Gamble sinusitis. 2. No acute intracranial abnormalities. Electronically signed by Jenny Jauregui 12-18-2024 05:37 AM
[2024-12-18] MEDS: SODIUM CHLORIDE 0.9% 1,000 ML IV SCH (06:17)
[2024-12-18] MEDS: NALOXONE HCL 0.4 MG/1 ML VIAL/CARP IV PRN (07:31)
[2024-12-18 07:51] LABS: HCO3 VBG 20 mmol/L; Oxygen Saturation VBG 81.1 %; PCO2 VBG 31 mmHg (38-50); PO2 VBG 48 mmHg; pH VBG 7.41 (7.36-7.41)
[2024-12-18 08:06] LABS: Basophils # (auto) 0.04 K/uL (0.00-0.20); Basophils % (auto) 0.3 %; Eosinophils # (auto) 0.01 K/uL (0.00-0.50); Eosinophils % (auto) 0.1 %; Hematocrit (blood only) 35.8 % (37.0-47.0); Hemoglobin 11.8 g/dl (12.0-16.0); Immature Granulocytes % (auto) 0.7 %; Lymphocytes # (auto) 2.07 K/uL (1.20-3.40); Lymphocytes % (auto) 13.5 %; Mean Corpuscular Hemoglobin 26.4 pg (25.0-34.0); Mean Corpuscular Volume 80.1 fL (80.0-100.0); Mean Platelet Volume 8.9 fL (9.4-12.4); Monocytes # (auto) 0.65 K/uL (0.11-0.59); Monocytes % (auto) 4.2 %; Neutrophils # (auto) 12.46 K/uL (1.40-6.50); Neutrophils % (auto) 81.2 %; Platelet Count 350 K/uL (130-400); RDW Coefficient of Variation 17.1 % (11.5-14.5); RDW Standard Deviation 50.1 fL (36.4-46.3); Red Blood Count 4.47 M/uL (4.20-5.40); White Blood Count 15.33 K/ul (4.8-10.8)
[2024-12-18 08:21] LABS: BUN Creatinine Ratio 22.8 (10-20); Bilirubin,Total 0.5 mg/dl (0.2-1.0); Calcium 9.1 mg/dl (8.6-10.3); Creatinine Clr Calc Pharmacy 44.9 ml/min; Globulin 4.2 gm/dl (2.5-4.0); Potassium 3.6 mmol/L (3.5-5.1); Total Protein 8.2 gm/dl (6.0-8.3)
[2024-12-18] MEDS: OPTIRAY 320 125ml IV ONE (08:27)
--- NOTE | 2024-12-18 09:06 | CT Scan Report ---
CT angio neck with con CLINICAL HISTORY: altered mental status. COMPARISON STUDY: None TECHNIQUE: Following the IV administration of of Optiray, CT angiogram of the neck was performed from the aortic arch to the skull base. Images are reviewed in the axial, sagittal, and coronal planes. 3 -D MIPS images are created and assessed. IV contrast was administered without complication. All measu rements were calculated based on NASCET criteria. A dose lowering technique was utilized adhering to the principles of ALARA. CT DOSE: 1084.47 mGy.cm FINDINGS: There are carotid bulb calcifications and mild scattered atherosclerotic calcifications. Bi lateral common and internal carotid arteries showed no significant narrowing or occlusion. The right vertebral artery is dominant and the left vertebral artery is very diminutive the umbilicus, anatomic variant. No significant narrowing or occlusion seen of the vertebral arteries. There are diffuse cer vical spine degenerative changes. IMPRESSION: No significant arterial narrowing or occlusion seen at the neck. ACT 112: Negative or not required by law. The above report was generated using voice recognition software. It may contain grammatical, syntax o r spelling errors. Electronically signed by: Miguel Laureano M.D. 12/18/2024 9:03 AM
--- NOTE | 2024-12-18 09:06 | CT Scan Report ---
CT angio head wo/w CLINICAL HISTORY: altered mental status TECHNIQUE: Contiguous axial CT images of the head were acquired from the base of the skull to the akhil grace without intravenous contrast administration. CT angiography of the head was performed following intravenous administration of iodinated contrast. Coronal and sagittal MIPS were obtained from the ax ial data set and were submitted for review. Automated dose lowering techniques and/or adjustment acc ording to patient size were utilized for this examination. All measurements were calculated based on NASCET criteria. Comparison: Comparison is made to CT head 12/18/2024 FINDINGS: CT head: There is no acute intracranial hemorrhage or evidence of acute territorial infarction. No sh ift of the midline structures, mass effect, or extra-axial abnormalities are shown. Maxillary, ethmoi d, and frontal sinus opacification is seen. CTA Head: The anterior and posterior cerebral circulations are patent. origin of the bilateral posterior cerebral arteries noted. IMPRESSION: 1. No acute intracranial hemorrhage, evidence of acute territorial infarction, or other acute intrac ranial disease process. 2. No occlusion, hemodynamically significant stenosis, aneurysm, dissection, or arteriovenous malfor mation in the major intracranial arteries. Assessment of stenosis of the internal carotid arteries is based on NASCET criteria. ACT 112: Negative or not required by law. Electronically signed by: Taz Mcdermott M.D. 12/18/2024 9:05 AM
[2024-12-18] MEDS ORDERED: STAT IV Infusion **Titration per Protocol STA (09:32)
--- NOTE | 2024-12-18 10:35 | Neurology Consultation ---
Date of Consultation December 18, 2024 Assessment & Plan (1) Opiate overdose: History of Present Illness Attending Physician: Song Almaguer History of Present Illness S: pt this morning sleepy but does moan to stimulation. moves limbs at times. pt little more active than yesterday. pt consulted for dilated pupil. chart reviewed. CT head negative. unclear as to how much med and what type med she took yesterday other than reported fentanyl paches in her mouth. admission HPI: Britni Stone is a 74 year old female with chronic opiate use who presents to the ER following an unresponsive episode. Daughter found her in floor of bathroom unresponsive with Fentanyl patches in her mouth, fallen down last night around 5:45pm. Unknown if she had hit her head when her asked her this morning. Tried to get her to bed but she had to be lifted. She was given a dose of naloxone in the bathroom and became more responsive. She was observed by her overnight who had to give an additional dose of naloxone around 7:30pm for respiratory depression. She was unable to tell her today why she had the Fentanyl patch in her mouth. No known urinary symptoms. Previously she was taking Seroquel although her notes this was tapered off any discontinued a month ago. She was unable to take any of her medications today. He is unsure of her amlodipine dosing but will find this out when he goes home. Allergies Allergy/AdvReac Type Severity Reaction Status Date / Time dicyclomine [From Bentyl] AdvReac Urticaria Verified 12/17/24 12:04 Home Medications Medication Instructions Recorded Confirmed Type oxycodone 10 mg tablet 10 mg PO TID PRN Pain 04/13/23 12/17/24 History rizatriptan 5 mg disintegrating 5 mg PO DIRECTED PRN Migraine 04/13/23 12/17/24 History tablet Headache losartan 25 mg tablet 25 mg PO QAM 04/19/23 12/17/24 History multivitamin 1 tab PO DAILY 04/19/23 12/17/24 History amlodipine 0 mg PO DAILY 12/17/24 12/17/24 History fentanyl 25 mcg/hr transdermal 1 patch topical Q72H 12/17/24 12/17/24 History patch hydrochlorothiazide 25 mg tablet 25 mg PO QAM 12/17/24 12/17/24 History metformin 500 mg tablet 500 mg PO QAM 12/17/24 12/17/24 History potassium chloride 0 meq PO DAILY 12/17/24 12/17/24 History Patient History Medical History Degenerative disc disease Arthritis Ankle fracture, left History of TMJ disorder Migraine Hypertension Surgical History History of total hip arthroplasty History of total knee replacement Family History Other No family history of adverse response to anesthesia Social History Smoking Status: Never smoker Second Hand Exposure: Yes (as a child); Hx Alcohol Use: Yes Alcohol type: wine Hx Substance Use: No Preferred Language: Slovenian Communication Ability: Effective Forensic Identification Specialist Required: No Beliefs That Will Affect Care: None Current Living Situation: Spouse Other Information That Helps Us Care for You: No Feels Safe at Home: Yes Safety Concerns: Feels Safe At This Time Assistive Devices: Glasses and Walker Exam (Neuro) Physical Exam: HEENT: normocephalic grossly Neuro: Mental: Drowsy, moaning sounds to stimulations, briefly opens eyes at times. nonverbal. CN: rt pupil 3 mm and left pupil 4mm but brisk constriction to light b/l. Full EOM appears to be intact with VOR, symmetric face, Motor: No abnormal movements, normal tone, withdraws to pain b/l. DTR: toes down b/l. 1+ sym b/l. Impression: 74 yo female with likely Opioid (Fentanyl) overdose and UTI contri buting to encephalopathy picture. Difficult to explain pupil mild mydriasis but likely side effect from Narcan she got initially. Narcan cause pupil dilation in pt who has opioids in their system. Her pupils are reactive and constricts well, suggestive of likely pharmacological changes. Recommendations: continue tx for overdose. not much to offer from neurology psych consult as planned. call again if new question. Chart reviewed I have spent more than 50% coordinating care with patient's treatment team. Total time spent (including chart review and coordination of care): 45 min (this includes chart review). Results & Data Vital Signs (Past 12 Hours) Vital Signs Temp Pulse Pulse Pulse Resp BP BP 01/23/25 07:49 36.6 C 28 H 12/18/24 07:18 106 H 12/18/24 07:00 86 12/18/24 06:20 102 H 12/18/24 05:06 109 H 168/115 H 12/18/24 05:05 109 H 12/18/24 04:31 109 H 12/18/24 03:53 111 H 12/18/24 02:56 36.6 C 106 H 16 12/18/24 02:19 108 H 12/18/24 01:35 98 H 12/18/24 01:00 94 H 12/18/24 00:18 86 12/18/24 00:11 85 181/112 H 12/17/24 23:55 112 H 160/118 H 12/17/24 23:40 112 H 12/17/24 23:32 113 H 12/17/24 22:58 36.7 C 114 H 16 194/118 H BP Pulse Ox O2 Del Method 12/18/24 07:49 96 Room Air 12/18/24 07:18 163/108 H 12/18/24 07:00 12/18/24 06:20 159/105 H 12/18/24 05:06 12/18/24 05:05 168/115 H 12/18/24 04:31 177/122 H 12/18/24 03:53 162/117 H 12/18/24 02:56 170/120 H 95 Room Air 12/18/24 02:19 164/122 H 12/18/24 01:35 181/123 H 12/18/24 01:00 185/129 H 12/18/24 00:18 183/117 H 12/18/24 00:11 12/17/24 23:55 12/17/24 23:40 160/118 H 12/17/24 23:32 12/17/24 22:58 97 Room Air PG Care Time/CCT Total # of Minutes Spent Total Time Spent with Patient: Total time spent is greater than 50% in coordination of care (as documented) at patient's floor/unit and/or counseling patient: Coding Level of Care Code 40964 IN/OBS CONSULT LVL 3,45M Diagnoses Intentional opiate overdose, initial encounter T40.602A Encounter type: initial encounter Injury intent: intentional self-harm (1) Opiate overdose Encounter type: initial encounter Injury intent: intentional self-harm Qualified Code(s): T40.602A - Poisoning by unspecified narcotics, intentional self-harm, initial encounter
[2024-12-18] MEDS: NALOXONE HCL 5 MG in SODIUM CHLORIDE 0.9% 87.5 ML IV SCH (10:37)
[2024-12-18] MEDS: ERTAPENEM 1000MG 1,000 MG/10 ML SYR IV SCH (11:37)
--- NOTE | 2024-12-18 11:58 | Psychiatric Consultation ---
Date of Consultation December 18, 2024 Impression / Recommendations Impression Diagnostically unclear if there was any self-harm intent leading to her misuse of Fentanyl patches or rather an accidental overdose from opioid use disorder. Given similar episode in July 2024 with denial of SI at that time suspect this represents an opioid use disorder. Once alert and awake psychiatry can re-assess for safety concerns. Consider use of Suboxone in the future for chronic pain as this has lower risk profile for overdose and seems that given her chronic pain and/or use disorder she was unable to discontinue Fentanyl patches following previous event. Overall, I spent a total of 45 minutes with this case including review of chart records, review of labwork, direct evaluation of the patient at bedside, discussion of the patient with the hospitalist provider, discussion with the psychiatric liason during clinical rounds and documentation in the electronic health record. (1) Opiate overdose: Encounter type: initial encounter Injury intent: intentional self-harm Qualified Code(s): T40.602A - Poisoning by unspecified narcotics, intentional self-harm, initial encounter (2) Encephalopathy: Plan -Psychiatry to re-assess once she is alert and able to communicate -Place on 1-on-1 and suicide precautions if safety concerns/SI arises, low suspicion for this being a suicide attempt currently -Monitor for potential additional substances she may have co-ingested (hx of Klonopin scripts in September 2024 per PDMP). Psych History Identifying Data Britni Stone is a 74 yo woman with a history of chronic opiate use who presented to the ER following an unresponsive episode and after being found with Fentanyl patches in her mouth. Psychiatry consulted for ingestation. Chief Complaint mute History of Present Illness Britni was not able to participate with interview due to somnolence so history per admission H&P by Dr. Lee on 12/17/2024: "Britni Stone is a 74 year old female with chronic opiate use who presents to the ER following an unresponsive episode. Daughter found her in floor of bathroom unresponsive with Fentanyl patches in her mouth, fallen down last night around 5:45pm. Unknown if she had hit her head when her asked her this morning. Tried to get her to bed but she had to be lifted. She was given a dose of naloxone in the bathroom and became more responsive. She was observed by her overnight who had to give an additional dose of naloxone around 7:30pm for respiratory depression. S he was unable to tell her today why she had the Fentanyl patch in her mouth. No known urinary symptoms. Previously she was taking Seroquel although her notes this was tapered off any discontinued a month ago. She was unable to take any of her medications today. He is unsure of her amlodipine dosing but will find this out when he goes home." No previous psychiatry nor psych liason consult notes. History of very similar presentation in July 2024 with unresponsive episode and found covered in fentanyl and melatonin patches per ED note. During that episode she denied any SI nor intent to self-harm. Unclear if there is a history of other substance use. History of Seroquel 300mg HS, Ambien 5mg HS, Klonopin per chart review. Allergies Allergy/AdvReac Type Severity Reaction Status Date / Time dicyclomine [From Bentyl] AdvReac Urticaria Verified 12/17/24 12:04 Home Medications Medication Instructions Recorded Confirmed Type oxycodone 10 mg tablet 10 mg PO TID PRN Pain 04/13/23 12/17/24 History rizatriptan 5 mg disintegrating 5 mg PO DIRECTED PRN Migraine 04/13/23 12/17/24 History tablet Headache losartan 25 mg tablet 25 mg PO QAM 04/19/23 12/17/24 History multivitamin 1 tab PO DAILY 04/19/23 12/17/24 History amlodipine 0 mg PO DAILY 12/17/24 12/17/24 History fentanyl 25 mcg/hr transdermal 1 patch topical Q72H 12/17/24 12/17/24 History patch hydrochlorothiazide 25 mg tablet 25 mg PO QAM 12/17/24 12/17/24 History metformin 500 mg tablet 500 mg PO QAM 12/17/24 12/17/24 History potassium chloride 0 meq PO DAILY 12/17/24 12/17/24 History Patient History Medical History Insomnia Chronic pain syndrome Transaminitis Rotator cuff arthropathy of right shoulder Migraine Hypertension Degenerative disc disease Arthritis Ankle fracture, left History of TMJ disorder Surgical History History of total hip arthroplasty right History of total knee replacement left Family History Other No family history of adverse response to anesthesia Social History Smoking Status: Never smoker Second Hand Exposure: Yes (as a child); Hx Alcohol Use: Yes Alcohol type: wine Hx Substance Use: No Preferred Language: Monegasque Communication Ability: Effective Quahogger Required: No Beliefs That Will Affect Care: None Current Living Situation: Spouse Other Information That Helps Us Care for You: No Feels Safe at Home: Yes Safety Concerns: Feels Safe At This Time Assistive Devices: Glasses and Walker Physical Exam Vital Signs (Past 24 Hours): Last Vital Signs Temp 36.6 C 12/18/24 07:49 Pulse 111 H 12/18/24 10:45 Resp 35 H 12/18/24 10:45 BP 166/111 H 12/18/24 10:45 Pulse Ox 96 12/18/24 07:49 O2 Del Method Room Air 12/18/24 07:49 Results & Data (PSY) Medications Administered Enoxaparin Sodium (Enoxaparin Inj 40 Mg/0.4 Ml Syr) 40 mg SQ QPM NICO Stop: 01/16/25 20:59 Last Admin: 12/17/24 20:16 Dose: 40 mg Documented By: BRIANNA Ertapenem (Invanz 1000mg) 1,000 mg in 10 mls @ 2 mls/min IV Q24H [facility] Stop: 12/23/24 10:59 Last Admin: 12/18/24 11:37 Dose: 2 mls/min Documented By: CRISTAL Sodium Chloride (Nss) 1,000 mls @ 100 mls/hr IV .Q10H NICO Stop: 12/18/24 15:59 Last Admin: 12/18/24 06:17 Dose: 100 mls/hr Documented By: BRIANNA Enalaprilat 1.25 mg/ Dextrose 26 mls @ 100 mls/hr IV Q6H PRN PRN Reason: sBP > 180 Stop: 01/16/25 23:44 Last Infusion: 12/18/24 01:35 Dose: Infused Documented By: Admin: 12/18/24 01:21 Dose: 100 mls/hr Documented By: BRIANNA Naloxone HCl 5 mg/ Sodium (Chloride) 100 mls @ 20 mls/hr IV .Q5H NICO; Protocol Stop: 01/17/25 09:59 Last Admin: 12/18/24 10:37 Dose: 1 mg/hr, 20 mls/hr Documented By: MERY Co-signed By: CRISTAL Losartan Potassium (Losartan Potassium 25 Mg Tab) 25 mg PO QAM NICO Stop: 01/16/25 13:44 Last Admin: 12/18/24 10:11 Dose: Not Given Documented By: Admin: 12/17/24 16:06 Dose: Not Given Documented By: CEF Naloxone HCl (Naloxone Hcl 0.4 Mg/1 Ml Vial/Carp) 0.1 mg IV Q5M PRN PRN Reason: Oversedation/Resp Depression Stop: 01/16/25 13:18 Last Admin: 12/18/24 08:04 Dose: 0.1 mg Documented By: Admin: 12/18/24 07:59 Dose: 0.1 mg Documented By: Admin: 12/18/24 07:31 Dose: 0.1 mg Documented By: MERY Coding Level of Care Code 29966 IN/OBS CONSULT LVL 3,45M Diagnoses Intentional opiate overdose, initial encounter T40.602A Encounter type: initial encounter Injury intent: intentional self-harm Encephalopathy G93.40
[2024-12-18] MEDS: cefTRIAXone SODIUM 2,000 MG/50 ML BAG IV SCH (16:24)
[2024-12-18] MEDS: LABETALOL HCL IV 5 MG/ML 20ML IV STA (17:58)
--- NOTE | 2024-12-18 23:01 | Hospitalist Progress Note ---
Date of Service December 18, 2024 Assessment & Plan (1) Opiate overdose: Plan: Hold Fentanyl and oxycodone. RR currently > 8 and although somnolent is opening eyes. GCS 10 (E3V2M5) VBG, End tidal CO2 monitoring. Naloxone 0.1mg IV PRN for oversedation, respiratory depression (call provider if used) Consult psychiatry as appears to have been intentional NPO with IV fluids with currently level of sedation Patient remains lethargic ordered ct head and neck Placed on narcan drip.'Consulted neurology, agrees this is likely opiate induced and not a stroke. CTA head/neck was negative. Patient will remain in PCU under close monitoring given her lethargy from opiate overdose. (2) Encephalopathy: Plan: Suspect secondary to opiates Less likely UTI (3) UTI (urinary tract infection): Plan: Unable to determine if contributory at time of admission Will cover for prior ESBL E. coli with ertapenem. Previously this was treated with ciprofloxacin (subsequently resistant to this) with improvement in her symptoms suggestive not UTI causing her symptoms (4) Transaminitis: Plan: Appears to be at her baseline, will continue to trend ?secondary to alcohol use Plan VTE Prophylaxis - Lovenox 40mg SQ daily Diet - NPO pending improvement in cognitive state Admission and Anticipated Discharge Date Admission Date: December 18, 2024 Subjective Patient remains unresponsive. Physical Exam Constitutional: Patient is somnolent. Eyes: downward gaze, pupils dilated but reactive to light lungs: clear heart: tachycardic, no murmurs abd: soft, non tender neuro: not following commands Results & Data Results & Data Vital Signs (Past 12 Hours) Vital Signs Temp Pulse Pulse Resp BP BP Pulse Ox 12/18/24 21:58 12/18/24 20:00 36.9 C 96 H 20 96 12/18/24 18:20 79 151/105 H 12/18/24 17:58 109 H 173/115 H 12/18/24 15:50 36.3 C L 113 H 20 176/117 H 95 12/18/24 13:15 171/114 H 12/18/24 13:15 171/114 H 12/18/24 13:15 171/114 H 12/18/24 13:15 171/114 H 12/18/24 13:15 171/114 H 12/18/24 13:15 112 H 28 H 96 12/18/24 13:12 111 H 29 H 96 12/18/24 13:00 175/118 H 12/18/24 13:00 175/118 H 12/18/24 12:54 112 H 20 96 12/18/24 12:45 172/117 H 12/18/24 12:45 172/117 H 12/18/24 12:36 107 H 28 H 96 12/18/24 12:33 109 H 35 H 96 12/18/24 12:30 168/113 H 12/18/24 12:27 110 H 32 H 97 12/18/24 12:03 110 H 31 H 97 12/18/24 12:00 176/115 H 12/18/24 12:00 176/115 H 12/18/24 11:48 110 H 33 H 97 12/18/24 11:45 185/126 H 12/18/24 11:45 185/126 H 12/18/24 11:30 169/113 H 12/18/24 11:27 110 H 34 H 97 12/18/24 11:18 112 H 35 H 98 12/18/24 11:15 169/106 H 12/18/24 11:15 169/106 H O2 Del Method 12/18/24 21:58 Room Air 12/18/24 20:00 Room Air 12/18/24 18:20 12/18/24 17:58 12/18/24 15:50 Room Air 12/18/24 13:15 12/18/24 13:15 12/18/24 13:15 12/18/24 13:15 12/18/24 13:15 12/18/24 13:15 12/18/24 13:12 12/18/24 13:00 12/18/24 13:00 12/18/24 12:54 12/18/24 12:45 12/18/24 12:45 12/18/24 12:36 12/18/24 12:33 12/18/24 12:30 12/18/24 12:27 12/18/24 12:03 12/18/24 12:00 12/18/24 12:00 12/18/24 11:48 12/18/24 11:45 12/18/24 11:45 12/18/24 11:30 12/18/24 11:27 12/18/24 11:18 12/18/24 11:15 12/18/24 11:15 PG Care Time/CCT Total # of Minutes Spent Total Time Spent with Patient: Total time spent is greater than 50% in coordination of care (as documented) at patient's floor/unit and/or counseling patient: Coding Level of Care Code 60010 SUB INP/OBS CARE 3/50MIN Diagnoses Intentional opiate overdose, initial encounter T40.602A Encounter type: initial encounter Injury intent: intentional self-harm Encephalopathy G93.40 UTI (urinary tract infection) N39.0 Transaminitis R74.01 (1) Opiate overdose Encounter type: initial encounter Injury intent: intentional self-harm Q ualified Code(s): T40.602A - Poisoning by unspecified narcotics, intentional self-harm, initial encounter
[2024-12-19 06:22] LABS: Hematocrit (blood only) 34.6 % (37.0-47.0); Hemoglobin 11.7 g/dl (12.0-16.0); Mean Corpuscular Hemoglobin 26.8 pg (25.0-34.0); Mean Corpuscular Hgb Conc 33.8 g/dL (32.0-36.0); Mean Corpuscular Volume 79.4 fL (80.0-100.0); Mean Platelet Volume 9.3 fL (9.4-12.4); Platelet Count 335 K/uL (130-400); RDW Coefficient of Variation 16.9 % (11.5-14.5); RDW Standard Deviation 49.1 fL (36.4-46.3); Red Blood Count 4.36 M/uL (4.20-5.40); White Blood Count 14.18 K/ul (4.8-10.8)
[2024-12-19 07:04] LABS: Albumin Level 3.5 gm/dl (3.4-5.0); Bilirubin,Total 0.5 mg/dl (0.2-1.0); Calcium 8.9 mg/dl (8.6-10.3); Potassium 3.4 mmol/L (3.5-5.1)
[2024-12-19 07:10] LABS: Albumin Globulin Ratio 0.9 (0.9-2); BUN Creatinine Ratio 24.4 (10-20); C Reactive Protein 0.95 mg/dl (0-0.5); Creatinine Clr Calc Pharmacy 45.5 ml/min; Total Protein 7.5 gm/dl (6.0-8.3)
--- NOTE | 2024-12-19 09:58 | Neurology Progress Note ---
Date of Service December 19, 2024 Assessment & Plan (1) Encephalopathy: (2) Opiate overdose: Admission and Anticipated Discharge Date Admission Date: December 18, 2024 Subjective pt still now opening eyes. sleepy but does forcefully close eyes and pupils still dilated but reactive. moves all limbs. Results & Data Vital Signs (Past 12 Hours) Vital Signs Temp Pulse Pulse Pulse Resp BP BP 12/19/24 09:02 102 H 24 181/113 H 12/19/24 07:52 36.5 C 97 H 20 158/97 H 12/19/24 05:40 105 H 12/19/24 03:32 36.3 C L 98 H 22 168/111 H 12/19/24 00:22 97 H 12/18/24 23:32 36.8 C 20 165/106 H 12/18/24 21:58 Pulse Ox O2 Del Method 12/19/24 09:02 95 Room Air 12/19/24 07:52 96 Room Air 12/19/24 05:40 12/19/24 03:32 95 Room Air 12/19/24 00:22 12/18/24 23:32 96 Room Air 12/18/24 21:58 Room Air Exam (Neuro) Physical Exam: Neuro: Mental: Drowsy, moaning sounds to stimulations, forcefully closes eyes when try to open. briefly opens eyes at times. nonverbal. CN: rt pupil 3 mm and left pupil 4mm but brisk constriction to light b/l. Full EOM appears to be intact with VOR, symmetric face, Motor: No abnormal movements, normal tone, withdraws to pain b/l. DTR: toes down b/l. 1+ sym b/l. Impression: 74 yo female with likely Opioid (Fentanyl) overdose and UTI contributing to encephalopathy picture. Difficult to explain pupil mild mydriasis but likely side effect from Narcan she got initially. Narcan cause pupil dilation in pt who has opioids in their system. Her pupils are reactive and constricts well, suggestive of likely pharmacological changes. Pt likely still having late side effect of her overdose and perhaps withdrawal side effects too along with progression of UTI. Recommendations: continue tx for overdose. if concern for mri scan being too long for pt, can just get DWI/ADC only protocol for quick scan of the brain. i do not feel she is having seizure. tx for opioid withdrawal and monitoring. UTI tx. continue medical management. consider empiric tx with thiamine for possible Wernicke's encephalopathy given her prior alcohol use, 500mg IV tid for 5 days, then 250mg IV daily for 5 days. Chart reviewed I have spent more than 50% coordinating care with patient's treatment team. Total time spent (including chart review and coordination of care): 45 min (this includes chart review). PG Care Time/CCT Total # of Minutes Spent Total Time Spent with Patient: Total time spent is greater than 50% in coordination of care (as documented) at patient's floor/unit and/or counseling patient: Coding Level of Care Code 06803 SUB INP/OBS CARE 2MIN Diagnoses Encephalopathy, unspecified type G93.40 Encephalopathy type: unspecified encephalopathy Intentional opiate overdose, initial encounter T40.602A Encounter type: initial encounter Injury intent: intentional self-harm (1) Encephalopathy Encephalopathy type: unspecified encephalopathy Qualified Code(s): G93.40 - Encephalopathy, unspecified (2) Opiate overdose Encounter type: initial encounter Injury intent: intentional self-harm Qualified Code(s): T40.602A - Poisoning by unspecified narcotics, intentional self-harm, initial encounter
[2024-12-19] MEDS: NALOXONE HCL 0.4 MG/1 ML VIAL/CARP IV STA (10:10)
[2024-12-19] MEDS: THIAMINE HCL 500 MG in SODIUM CHLORIDE 0.9% 50 ML IV SCH (11:15)
[2024-12-19] MEDS: NALOXONE HCL IV SCH (13:50)
[2024-12-19] MEDS: NALOXONE HCL 0.4 MG/1 ML VIAL/CARP IV ONE (13:50)
[2024-12-19] MEDS: SODIUM CHLORIDE 0.9% IV SCH (13:50)
[2024-12-19 14:32] LABS: Codeine Urine NEGATIVE ng/mL (<50); Fentanyl, Urine 98.7 ng/mL (<0.5); Hydrocodone Urine NEGATIVE ng/mL (<50); Hydromor Urine NEGATIVE ng/mL (<50); Morphine Urine NEGATIVE ng/mL (<50); Norfentanyl, Urine >250.0 ng/mL (<0.5); Norhydrocodone Conf Ur NEGATIVE ng/mL (<50); Noroxycodone Urine 2070 ng/mL (<50); Oxycodone Urine 895 ng/mL (<50); Oxymorph Urine 698 ng/mL (<50); medMATCH Fentanyl, Urine DNR; medMATCH Norfentanyl, Urine DNR
--- NOTE | 2024-12-19 17:11 | Magnetic Resonance Report ---
MRI of the brain performed without IV contrast History: Unresponsive Comparison: None Technique: Sagittal T1-weighted and axial T2-weighted, T2/FLAIR and diffusion-weighted with ADC map images of the brain were obtained without IV contrast. Findings: No evidence for intracranial mass lesion, mass-effect, midline shift, or abnormal extra-axial fluid collection. The ventricles and sulci are within normal limits for age. Diffuse, uniform restricted diffusion, appears relatively symmetric involving the posterior cerebral hemispheres involving the parietal, occipital, and posterior temporal lobes. There is also mild gyriform areas of diffusion restriction about the high frontoparietal junction bilaterally. There are 2, symmetric rounded areas measuring approximately 9 mm within the medial cerebellar hemispheres of restricted diffusion as well as subtle patchy diffusion restriction about the periphery of the lateral and inferior aspects of the cerebellar hemispheres. Subtle high T2/FLAIR signal abnormality is associated with the above described areas. Normal intravascular flow voids. Impression: Bilateral, symmetric gyriform pattern of restricted diffusion and high T2/FLAIR signal abnormality throughout the posterior cerebral hemispheres, as well as smaller and also relatively symmetric involvement of the cerebellar hemispheres. There is mild involvement of the perirolandic/paracentral areas as well, with this latter finding making the differential of hypoxic ischemic encephalopathy seem most likely, the differential including Posterior reversible encephalopathy syndrome (PRES) or hypoglycemia. Electronically signed by Jacinto Watson 12-19-2024 5:10 PM
[2024-12-19] MEDS: LABETALOL HCL IV 5 MG/ML 20ML IV STA ×2 (17:43→19:59)
[2024-12-19] MEDS: ASPIRIN 300 MG SUPP PR ONE (18:26)
--- NOTE | 2024-12-19 23:57 | Hospitalist Progress Note ---
Date of Service December 19, 2024 Assessment & Plan (1) Opiate overdose: Plan: Hold Fentanyl and oxycodone. RR currently > 8 and although somnolent is opening eyes. GCS 10 (E3V2M5) VBG, End tidal CO2 monitoring. Naloxone 0.1mg IV PRN for oversedation, respiratory depression (call provider if used) Consult psychiatry as appears to have been intentional NPO with IV fluids with currently level of sedation Patient remains lethargic cta head and neck negative. Narcan drip discontinued after 24 hours, patient remains with normal end tidal CO2. Ordered MR brain with DWI to rule out anoxic brain injury. MRI showing eveidence of anoxic brain injury: will keep O2 sat above 95. Possibility of PRES. will treat as a stroke for now ASA, permissive hypertension. However DIastolic blood pressure has been elevated will order one time dose of labetalol D/W neurologist and professional caster (2) Encephalopathy: Plan: Suspect secondary to opiates Less likely UTI (3) UTI (urinary tract infection): Plan: Unable to determine if contributory at time of admission Will cover for prior ESBL E. coli with ertapenem. Previously this was treated w ith ciprofloxacin (subsequently resistant to this) with improvement in her symptoms suggestive not UTI causing her symptoms (4) Transaminitis: Plan: Appears to be at her baseline, will continue to trend ?secondary to alcohol use Plan VTE Prophylaxis - Lovenox 40mg SQ daily Admission and Anticipated Discharge Date Admission Date: December 18, 2024 Subjective Patient is still unresponsive. Physical Exam Constitutional: Patient is somnolent. Eyes: downward gaze, pupils dilated but reactive to light lungs: clear heart: tachycardic, no murmurs abd: soft, non tender neuro: not following commands Results & Data Results & Data Vital Signs (Past 12 Hours) Vital Signs Temp Pulse Pulse Resp BP BP BP 12/19/24 23:49 173/108 H 12/19/24 23:00 86 12/19/24 23:00 153/123 H 12/19/24 21:57 36.8 C 93 H 22 172/104 H 12/19/24 21:00 12/19/24 20:47 181/112 H 12/19/24 19:42 36.8 C 86 23 164/103 H 12/19/24 18:26 77 158/97 H 12/19/24 17:43 89 165/120 H 12/19/24 16:22 36.2 C L 99 H 26 H 159/110 H 12/19/24 15:50 36.8 C 99 H 22 162/112 H 12/19/24 13:25 101 H 12/19/24 12:00 Pulse Ox O2 Del Method 12/19/24 23:49 12/19/24 23:00 12/19/24 23:00 12/19/24 21:57 95 Room Air 12/19/24 21:00 Room Air 12/19/24 20:47 12/19/24 19:42 96 Room Air 12/19/24 18:26 12/19/24 17:43 12/19/24 16:22 95 Room Air 12/19/24 15:50 97 Room Air 12/19/24 13:25 12/19/24 12:00 Room Air PG Care Time/CCT Total # of Minutes Spent Total Time Spent with Patient: Total time spent is greater than 50% in coordination of care (as documented) at patient's floor/unit and/or counseling patient: Critical Care Time: Yes Total Critical Care Time: 35 60 A total of 35 minutes of critical care time was provided to the patient today, including continuous monitoring, medication adjustments, and consultation with specialists, which is necessary to manage their unstable condition. Coding Level of Care Code 03073 SUB INP/OBS CARE 3/50MIN (25 - SIGNIFICANT, SEPARATELY IDENTIFIABLE ) Diagnoses Intentional opiate overdose, initial encounter T40.602A Encounter type: initial encounter Injury intent: intentional self-harm Encephalopathy, unspecified type G93.40 Encephalopathy type: unspecified encephalopathy UTI (urinary tract infection) N39.0 Transaminitis R74.01 Additional Codes Critical Care Time - Critical Care Time: Yes ([id number]) Time Spent (min) 60 (1) Opiate overdose Encounter type: initial encounter Injury intent: intentional self-harm Qualified Code(s): T40.602A - Poisoning by unspecified narcotics, intentional self-harm, initial encounter (2) Encephalopathy Encephalopathy type: unspecified encephalopathy Qualified Code(s): G93.40 - Encephalopathy, unspecified
[2024-12-20] MEDS: LABETALOL HCL IV 5 MG/ML 20ML IV STA ×2 (00:40→13:07)
[2024-12-20 07:20] LABS: Hematocrit (blood only) 34.1 % (37.0-47.0); Hemoglobin 11.1 g/dl (12.0-16.0); Mean Corpuscular Hemoglobin 26.6 pg (25.0-34.0); Mean Corpuscular Hgb Conc 32.6 g/dL (32.0-36.0); Mean Corpuscular Volume 81.6 fL (80.0-100.0); Mean Platelet Volume 9.5 fL (9.4-12.4); Platelet Count 328 K/uL (130-400); RDW Standard Deviation 50.8 fL (36.4-46.3); Red Blood Count 4.18 M/uL (4.20-5.40); White Blood Count 11.41 K/ul (4.8-10.8)
[2024-12-20 07:35] LABS: Anion Gap 8 (3-11); BUN Creatinine Ratio 31.3 (10-20); Blood Urea Nitrogen 25 mg/dl (6-23); C Reactive Protein < 0.50 mg/dl (0-0.5); Calcium 9.1 mg/dl (8.6-10.3); Carbon Dioxide 23 mmol/L (21-32); Chloride 109 mmol/L (98-107); Creatinine Clr Calc Pharmacy 44.3 ml/min; Glucose 113 mg/dl (70-99(Fasting)); Potassium 3.4 mmol/L (3.5-5.1); Sodium 140 mmol/L (136-145)
[2024-12-20] MEDS: ENALAPRILAT 2.5 MG in DEXTROSE 5% 25 ML IV PRN (09:09)
--- NOTE | 2024-12-20 09:22 | Neurology Progress Note ---
Date of Service December 20, 2024 Assessment & Plan (1) Encephalopathy: Admission and Anticipated Discharge Date Admission Date: December 18, 2024 Subjective pt this morning opening eyes and yesterday apparently did follow simple command to open mouth to clean. pt appears comfortable this morning. eyes open and no further nystagmus noted. mri brain reviewed again. noted for b/l posterior cortical hemisphere and some cerebellum and periolandic area DWI/ADC changes. very interesting changes. Results & Data Vital Signs (Past 12 Hours) Vital Signs Temp Pulse Pulse Resp BP BP BP 12/20/24 07:57 36.8 C 92 H 17 179/118 H 12/20/24 02:53 37.1 C 79 20 180/103 H 12/20/24 01:27 72 173/99 H 12/19/24 23:49 173/108 H 12/19/24 23:00 86 12/19/24 23:00 153/123 H 12/19/24 21:57 36.8 C 93 H 22 172/104 H Pulse Ox O2 Del Method 12/20/24 07:57 97 Room Air 12/20/24 02:53 97 Room Air 12/20/24 01:27 12/19/24 23:49 12/19/24 23:00 12/19/24 23:00 12/19/24 21:57 95 Room Air Exam (Neuro) Physical Exam: Neuro: Mental: Alert, eyes open and looking around, nonverbal. CN: pupils now 3 mm b/l and brisk b/l. Full EOM appears to be intact , symmetric face, Motor: No abnormal movements, normal tone, withdraws to pain b/l and grimace to pain. Impression: 74 yo female with likely Opioid (Fentanyl) overdose and UTI with MRI brain findings with b/l posterior/cerebellum and periolandic area DWI/ADC changes without T2 FLAIR changes. Pt clinically showing improvement with now fully alert and eyes open and pupils equal and reactive. Ddx at this point is Hypoxic encephalopathy, PRES, and also Wernicke encephalopathy. MRI changes are complex in nature and all three of these dx can show similar changes. Pt's overall clinical course next few days will give better idea. Pt was started on thiamine infusion yesterday. She did also have downgaze ophthalmoparesis with nystagmus at times, making Wernicke encephalopathy possibility. Recommendations: continue tx for overdose. continue supportive care for nutrition (as pt appears to be malnourished) and finish thiamine tx. nutrition consult will need PT/OT/speech therapy involved for jail care when she improves more to follow command. tx for opioid withdrawal and monitoring. would continue baby ASA TN daily for now, until able to take PO. UTI tx. continue medical management. total time spent: 35 min, including coordinating care with primary team and chart review. PG Care Time/CCT Total # of Minutes Spent Total Time Spent with Patient: Total time spent is greater than 50% in coordination of care (as documented) at patient's floor/unit and/or counseling patient: Coding Level of Care Code 36188 SUB INP/OBS CARE 2/35MIN Diagnoses Encephalopathy, unspecified type G93.40 Encephalopathy type: unspecified encephalopathy (1) Encephalopathy Encephalopathy type: unspecified encephalopathy Qualified Code(s): G93.40 - Encephalopathy, unspecified
[2024-12-20] MEDS: POTASSIUM CHLORIDE / WTR 10 MEQ/100 ML PLCT IV SCH (13:07)
[2024-12-20] MEDS: SODIUM CHLORIDE 0.9% 1,000 ML IV SCH (16:40)
--- NOTE | 2024-12-20 23:17 | Hospitalist Progress Note ---
Date of Service December 20, 2024 Assessment & Plan (1) Opiate overdose: Plan: Hold Fentanyl and oxycodone. RR currently > 8 and although somnolent is opening eyes. GCS 10 (E3V2M5) VBG, End tidal CO2 monitoring. Naloxone 0.1mg IV PRN for oversedation, respiratory depression (call provider if used) Consult psychiatry as appears to have been intentional NPO with IV fluids with currently level of sedation Patient remains lethargic cta head and neck negative. Narcan drip discontinued after 24 hours, patient remains with normal end tidal CO2. Ordered MR brain with DWI to rule out anoxic brain injury. MRI showing eveidence of anoxic brain injury: will keep O2 sat above 95. Possibility of PRES. will treat as a stroke for now ASA, permissive hypertension. However DIastolic blood pressure has been elevated will order one time dose of labetalol No significant improvement on 12/20, replaced potassium, ordered anti hypertensives, and placed on IVF as patient is not able to drink. D/W neurologist (2) Encephalopathy: Plan: Suspect secondary to opiates Less likely UTI (3) UTI (urinary tract infection): Plan: Unable to determine if contributory at time of admission Will cover for prior ESBL E. coli with ertapenem. Previously this was treated with ciprofloxacin (subsequently resistant to this) with improvement in her symptoms suggestive not UTI causing her symptoms (4) Transaminitis: Plan: Appears to be at her baseline, will continue to trend ?secondary to alcohol use Plan VTE Prophylaxis - Lovenox 40mg SQ daily Admission and Anticipated Discharge Date Admission Date: December 18, 2024 Subjective Patient with her eyes open. Not verbal Physical Exam Constitutional: Patient with open eyes. Non verbal, Does not follow commands. Results & Data Results & Data Vital Signs (Past 12 Hours) Vital Signs Temp Pulse Pulse Resp BP BP BP 12/20/24 22:20 37.4 C 83 18 190/107 H 12/20/24 21:22 156/125 H 12/20/24 19:56 12/20/24 19:45 186/96 H 12/20/24 19:42 36.6 C 74 18 180/106 H 12/20/24 19:34 181/108 H 12/20/24 19:07 192/104 H 12/20/24 18:10 36.6 C 71 20 181/94 H 12/20/24 15:59 36.3 C L 75 17 168/99 H 12/20/24 13:32 75 149/90 H 12/20/24 13:31 75 149/90 H 12/20/24 13:07 92 H 157/115 H 12/20/24 13:03 92 H Pulse Ox O2 Del Method 12/20/24 22:20 98 Oxymask 12/20/24 21:22 12/20/24 19:56 Room Air 12/20/24 19:45 12/20/24 19:42 96 Oxymask 12/20/24 19:34 12/20/24 19:07 12/20/24 18:10 98 Room Air 12/20/24 15:59 92 Room Air 12/20/24 13:32 12/20/24 13:31 12/20/24 13:07 12/20/24 13:03 PG Care Time/CCT Total # of Minutes Spent Total Time Spent with Patient: Total time spent is greater than 50% in coordination of care (as documented) at patient's floor/unit and/or counseling patient: Coding Level of Care Code 16869 SUB INP/OBS CARE 3/50MIN Diagnoses Intentional opiate overdose, initial encounter T40.602A Encounter type: initial encounter Injury intent: intentional self-harm Encephalopathy, unspecified type G93.40 Encephalopathy type: unspecified encephalopathy UTI (urinary tract infection) N39.0 Transaminitis R74.01 (1) Opiate overdose Encounter type: initial encounter Injury intent: intentional self-harm Qualified Code(s): T40.602A - Poisoning by unspecified narcotics, intentional self-harm, initial encounter (2) Encephalopathy Encephalopathy type: unspecified encephalopathy Qualified Code(s): G93.40 - Encephalopathy, unspecified
[2024-12-21] MEDS: LABETALOL HCL IV 5 MG/ML 20ML IV STA (00:23)
[2024-12-21 07:16] LABS: Hematocrit (blood only) 30.8 % (37.0-47.0); Mean Corpuscular Hemoglobin 26.5 pg (25.0-34.0); Mean Corpuscular Hgb Conc 32.5 g/dL (32.0-36.0); Mean Corpuscular Volume 81.5 fL (80.0-100.0); Mean Platelet Volume 9.1 fL (9.4-12.4); Platelet Count 272 K/uL (130-400); RDW Coefficient of Variation 16.9 % (11.5-14.5); RDW Standard Deviation 50.2 fL (36.4-46.3); Red Blood Count 3.78 M/uL (4.20-5.40)
[2024-12-21 07:48] LABS: Anion Gap 8 (3-11); BUN Creatinine Ratio 34.7 (10-20); Blood Urea Nitrogen 25 mg/dl (6-23); C Reactive Protein < 0.50 mg/dl (0-0.5); Calcium 8.7 mg/dl (8.6-10.3); Carbon Dioxide 19 mmol/L (21-32); Chloride 116 mmol/L (98-107); Creatinine Clr Calc Pharmacy 49.2 ml/min; Glucose 107 mg/dl (70-99(Fasting)); Potassium 3.2 mmol/L (3.5-5.1); Sodium 143 mmol/L (136-145)
--- NOTE | 2024-12-21 08:22 | Neurology Progress Note ---
Date of Service December 21, 2024 Assessment & Plan (1) Encephalopathy: (2) Opiate overdose: Admission and Anticipated Discharge Date Admission Date: December 18, 2024 Subjective pt awake. blinking eyes. nonverbal. no abnormal movements. Results & Data Vital Signs (Past 12 Hours) Vital Signs Temp Pulse Pulse Resp BP BP BP 12/21/24 07:32 36.8 C 79 20 188/123 H 12/21/24 07:00 12/21/24 05:30 64 12/21/24 03:05 36.9 C 75 18 174/105 H 12/21/24 01:11 64 180/94 H 12/21/24 00:36 81 12/21/24 00:23 86 180/105 H 12/20/24 22:20 37.4 C 83 18 190/107 H 12/20/24 21:22 156/125 H Pulse Ox O2 Del Method 12/21/24 07:32 94 Room Air 12/21/24 07:00 Room Air 12/21/24 05:30 12/21/24 03:05 99 Oxymask 12/21/24 01:11 12/21/24 00:36 12/21/24 00:23 12/20/24 22:20 98 Oxymask 12/20/24 21:22 Exam (Neuro) Physical Exam: Neuro: Mental: Alert, eyes open and looking around, nonverbal. CN: pupils now 3 mm b/l and brisk b/l. Full EOM appears to be intact , symmetric face, gaze preference to rt. Motor: No abnormal movements, normal tone, withdraws to pain b/l and grimace to pain. Impression: 74 yo female with likely Opioid (Fentanyl) overdose and UTI with MRI brain findings with b/l posterior/cerebellum and periolandic area DWI/ADC changes without T2 FLAIR changes. Pt clinically showing improvement with now fully alert and eyes open and pupils equal and reactive. Ddx at this point is Hypoxic encephalopathy, PRES, and also Wernicke encephalopathy. MRI changes are complex in nature and all three of these dx can show similar changes. Pt's overall clinical course next few days will give better idea. Pt on thiamine infusion. She did also have downgaze ophthalmoparesis with nystagmus at times, making Wernicke encephalopathy possibility. Suspect it will take long time for pt to recover from her ongoing complex medical issues. Recommendations: continue tx for overdose. continue supportive care for nutrition (as pt appears to be malnourished) and finish thiamine tx. 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 tx for opioid withdrawal and monitoring. get repeat MRI brain without BROOKS in about 2-3 days. will start vimpat as seizure prevention, she is at high risk for seizure given cortical dysfunction. vimpat loading dose and standing dose ordered by me. avoid keppra given her psychiatry issues. longer need permissive HTN, try to keep SBP range 110-160. would continue baby ASA RI daily for now, until able to take PO. UTI tx. finish thiamine treatment continue medical management. Chart reviewed I have spent more than 50% with neurological evaluation and coordinating care with patient's treatment team. Total time spent (including chart review and coordination of care): 35 min (this includes chart review). PG Care Time/CCT Total # of Minutes Spent Total Time Spent with Patient: Total time spent is greater than 50% in coordination of care (as documented) at patient's floor/unit and/or counseling patient: Coding Level of Care Code 55165 SUB INP/OBS CARE 2/35MIN Diagnoses Encephalopathy, unspecified type G93.40 Encephalopathy type: unspecified encephalopathy Intentional opiate overdose, initial encounter T40.602A Encounter type: initial encounter Injury intent: intentional self-harm (1) Encephalopathy Encephalopathy type: unspecified encephalopathy Qualified Code(s): G93.40 - Encephalopathy, unspecified (2) Opiate overdose Encounter type: initial encounter Injury intent: intentional self-harm Qualified Code(s): T40.602A - Poisoning by unspecified narcotics, intentional self-harm, initial encounter
[2024-12-21] MEDS: ASPIRIN 300 MG SUPP PR SCH (08:56)
[2024-12-21] MEDS: hydrALAZINE HCL 20 MG/ML VIAL IV STA ×2 (08:56→15:21)
[2024-12-21] MEDS: LACOSAMIDE 200 MG in SODIUM CHLORIDE 0.9% 50 ML IV ONE (09:11)
[2024-12-21] MEDS: POTASSIUM CHLORIDE / WTR 10 MEQ/100 ML PLCT IV SCH (13:42)
[2024-12-21] MEDS: LACOSAMIDE 100 MG in SODIUM CHLORIDE 0.9% 50 ML IV SCH (21:08)
--- NOTE | 2024-12-21 22:50 | Hospitalist Progress Note ---
Date of Service December 21, 2024 Assessment & Plan (1) Opiate overdose: Plan: Hold Fentanyl and oxycodone. RR currently > 8 and although somnolent is opening eyes. GCS 10 (E3V2M5) VBG, End tidal CO2 monitoring. Naloxone 0.1mg IV PRN for oversedation, respiratory depression (call provider if used) Consult psychiatry as appears to have been intentional NPO with IV fluids with currently level of sedation Patient remains lethargic cta head and neck negative. Narcan drip discontinued after 24 hours, patient remains with normal end tidal CO2. Ordered MR brain with DWI to rule out anoxic brain injury. MRI showing eveidence of anoxic brain injury: will keep O2 sat above 95. Possibility of PRES. will treat as a stroke for now ASA, permissive hypertension. However DIastolic blood pressure has been elevated will order one time dose of labetalol No significant improvement on 12/21, replaced potassium, ordered anti hypertensives, and placed on IVF as patient is not able to drink. D/W neurologist History appears to point more towards hypoxic brain injury as this likely occured during the evening priior to admission. switched code status to DNR/DNI (2) Encephalopathy: Plan: Suspect secondary to opiates Less likely UTI (3) UTI (urinary tract infection): Plan: Unable to determine if contributory at time of admission Will cover for prior ESBL E. coli with ertapenem. Previously this was treated with ciprofloxacin (subsequently resistant to this) with improvement in her symptoms suggestive not UTI causing her symptoms (4) Transaminitis: Plan: Appears to be at her baseline, will continue to trend ?secondary to alcohol use Plan VTE Prophylaxis - Lovenox 40mg SQ daily Admission and Anticipated Discharge Date Admission Date: December 18, 2024 Subjective Patient with her eyes open. Not verbal. Discussed with . confirms history, he felt she was showing improvement breathing well after 2nd narcan dose. Physical Exam Physical Exam: Patient lying in bed, Results & Data Results & Data Vital Signs (Past 12 Hours) Vital Signs Temp Pulse Pulse Resp BP BP Pulse Ox 12/21/24 22:44 37.1 C 92 H 18 145/85 H 93 12/21/24 21:47 12/21/24 19:41 36.8 C 95 H 22 143/84 H 95 12/21/24 15:37 37.0 C 97 H 18 142/81 H 95 12/21/24 13:00 93 H 12/21/24 11:32 36.8 C 89 18 176/99 H 96 O2 Del Method 12/21/24 22:44 Room Air 12/21/24 21:47 Room Air 12/21/24 19:41 Room Air 12/21/24 15:37 Room Air 12/21/24 13:00 12/21/24 11:32 Room Air PG Care Time/CCT Total # of Minutes Spent Total Time Spent with Patient: Total time spent is greater than 50% in coordination of care (as documented) at patient's floor/unit and/or counseling patient: Coding Level of Care Code 74979 SUB INP/OBS CARE 3/50MIN Diagnoses Intentional opiate overdose, initial encounter T40.602A Encounter type: initial encounter Injury intent: intentional self-harm Encephalopathy, unspecified type G93.40 Encephalopathy type: unspecified encephalopathy UTI (urinary tract infection) N39.0 Transaminitis R74.01 (1) Opiate overdose Encounter type: initial encounter Injury intent: intentional self-harm Qualified Code(s): T40.602A - Poisoning by unspecified narcotics, intentional self-harm, initial encounter (2) Encephalopathy Encephalopathy type: unspecified encephalopathy Qualified Code(s): G93.40 - Encephalopathy, unspecified
[2024-12-22 07:58] LABS: Hemoglobin 10.3 g/dl (12.0-16.0); Mean Corpuscular Hemoglobin 26.4 pg (25.0-34.0); Mean Corpuscular Hgb Conc 32.2 g/dL (32.0-36.0); Mean Corpuscular Volume 82.1 fL (80.0-100.0); Mean Platelet Volume 9.5 fL (9.4-12.4); Platelet Count 298 K/uL (130-400); RDW Standard Deviation 50.4 fL (36.4-46.3); White Blood Count 9.35 K/ul (4.8-10.8)
[2024-12-22 08:24] LABS: Potassium 3.4 mmol/L (3.5-5.1)
[2024-12-22 08:30] LABS: BUN Creatinine Ratio 28.9 (10-20); C Reactive Protein 0.54 mg/dl (0-0.5); Creatinine Clr Calc Pharmacy 46.6 ml/min
[2024-12-22] MEDS: hydrALAZINE HCL 20 MG/ML VIAL IV STA (11:38)
--- NOTE | 2024-12-22 22:58 | Hospitalist Progress Note ---
Date of Service December 22, 2024 Assessment & Plan (1) Opiate overdose: Plan: Fentanyl, Oxycodone overdose, intentional, with toxic metabolic encephalopathy COmplicated now with likely Anoxic brain jury Hold Fentanyl and oxycodone. RR currently > 8 and although somnolent is opening eyes. GCS 10 (E3V2M5) VBG, End tidal CO2 monitoring. Naloxone 0.1mg IV PRN for oversedation, respiratory depression (call provider if used) Consult psychiatry as appears to have been intentional NPO with IV fluids Patient remains nonresponsive cta head and neck negative. Narcan drip discontinued after 24 hours, patient remains with normal end tidal CO2. Ordered MR brain with DWI to rule out anoxic brain injury. MRI showing evidence of anoxic brain injury: will keep O2 sat above 95. Possibility of PRES. will treat as a stroke for now ASA, permissive hypert ension. Required PRN hydralazine for hypertension History appears to point more towards hypoxic brain injury as this likely occured during the evening priior to admission. will order repeat MRI brain on 12/23 switched code status to DNR/DNI (2) Encephalopathy: Plan: Suspect secondary to opiates Less likely UTI (3) UTI (urinary tract infection): Plan: Unable to determine if contributory at time of admission Will cover for prior ESBL E. coli with ertapenem. Previously this was treated with ciprofloxacin (subsequently resistant to this) with improvement in her symptoms suggestive not UTI causing her symptoms currently on ertapenem (4) Transaminitis: Plan: Appears to be at her baseline, will continue to trend ?secondary to alcohol use Plan VTE Prophylaxis - Lovenox 40mg SQ daily Admission and Anticipated Discharge Date Admission Date: December 18, 2024 Subjective Patient with her eyes open. Not verbal. \\ Physical Exam Physical Exam: Patient lying in bed, Eyes open Not responsive to verbal/tactile/painful stimuli Results & Data Results & Data Vital Signs (Past 12 Hours) Vital Signs Temp Pulse Pulse Resp BP BP Pulse Ox 12/22/24 22:53 99 H 12/22/24 20:00 12/22/24 19:53 36.9 C 80 16 146/88 H 95 12/22/24 16:14 36.8 C 100 H 14 172/101 H 96 12/22/24 13:00 103 H 12/22/24 12:06 106 H 28 H 163/95 H 96 12/22/24 11:08 36.7 C 99 H 20 186/108 H 98 O2 Del Method 12/22/24 22:53 12/22/24 20:00 Room Air 12/22/24 19:53 Room Air 12/22/24 16:14 Room Air 12/22/24 13:00 12/22/24 12:06 Room Air 12/22/24 11:08 Room Air PG Care Time/CCT Total # of Minutes Spent Total Time Spent with Patient: Total time spent is greater than 50% in coordination of care (as documented) at patient's floor/unit and/or counseling patient: Coding Level of Care Code 37325 SUB INP/OBS CARE 3/50MIN Diagnoses Intentional opiate overdose, initial encounter T40.602A Encounter type: initial encounter Injury intent: intentional self-harm Encephalopathy, unspecified type G93.40 Encephalopathy type: unspecified encephalopathy UTI (urinary tract infection) N39.0 Transaminitis R74.01 (1) Opiate overdose Encounter type: initial encounter Injury intent: intentional self-harm Qualified Code(s): T40.602A - Poisoning by unspecified narcotics, intentional self-harm, initial encounter (2) Encephalopathy Encephalopathy type: unspecified encephalopathy Qualified Code(s): G93.40 - Encephalopathy, unspecified
[2024-12-23] MEDS: hydrALAZINE HCL 20 MG/ML VIAL IV PRN (02:31)
[2024-12-23 07:35] LABS: Hematocrit (blood only) 34.7 % (37.0-47.0); Hemoglobin 11.1 g/dl (12.0-16.0); Mean Corpuscular Hemoglobin 26.7 pg (25.0-34.0); Mean Corpuscular Volume 83.4 fL (80.0-100.0); Mean Platelet Volume 9.3 fL (9.4-12.4); Platelet Count 313 K/uL (130-400); RDW Coefficient of Variation 17.2 % (11.5-14.5); RDW Standard Deviation 51.9 fL (36.4-46.3); Red Blood Count 4.16 M/uL (4.20-5.40)
[2024-12-23 07:54] LABS: BUN Creatinine Ratio 34.2 (10-20); Calcium 9.5 mg/dl (8.6-10.3); Creatinine Clr Calc Pharmacy 46.6 ml/min; Potassium 3.3 mmol/L (3.5-5.1)
[2024-12-23] MEDS: SODIUM CHLORIDE 0.9% 1,000 ML IV SCH (09:40)
[2024-12-23] MEDS: POTASSIUM CHLORIDE / WTR 10 MEQ/100 ML PLCT IV SCH (09:40)
--- NOTE | 2024-12-23 10:00 | Magnetic Resonance Report ---
EXAM: MR brain wo con CLINICAL HISTORY: follow up . TECHNIQUE: MRI of the brain was performed without contrast with multiplanar sequences obtained. COMPARISON: Comparison is made with prior MRI dated 12/19/2024. FINDINGS: Brain Parenchyma: No evidence of acute infarction or hemorrhage. Normal walker-white matter differentiation. No mass lesions or focal cortical abnormalities identified. Bilateral frontoparietal periventricular white matter thin sheets of high T2/FLAIR signal with no related edema or mass effect denoting small artery disease. Ventricles and Sulci: Normal size and configuration of the lateral ventricles, third ventricle, and fourth ventricle. No evidence of hydrocephalus or ventriculomegaly. Sylvian fissures, sulci, and cisterns are prominent (age-related involutional changes). Posterior Fossa: Bilateral cerebellar small areas/foci of bright DWI, low T1 and high T2/FLAIR signals, currently showing reduced their T1 and DWI signals compared to previous study, likely aging ischemic insult. Brainstem appear normal without evidence of mass lesions or signal abnormalities. Cranial Nerves: Normal course and appearance of cranial nerves identified. Vessels: No evidence of vascular malformations or aneurysms. Intracranial arteries and veins appear normal without evidence of stenosis or occlusion. Orbits and Skull Base: Orbits and skull base structures are normal without evidence of abnormalities. Marked pansinusitis relatively sparing the left maxillary sinus. Mild bilateral mastoiditis. IMPRESSION: 1. Aging of the previously seen bilateral cerebellar small ischemic areas/foci. 2. 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 3. Pansinusitis, unchanged. Electronically signed by Jenny Jauregui 12-23-2024 10:00 AM
--- NOTE | 2024-12-23 10:49 | Neurology Progress Note ---
Date of Service December 23, 2024 Assessment & Plan (1) Anoxic brain injury: (2) Opiate overdose: Plan Severe anoxic brain injury in the context of opiate overdose. She has bilateral, symmetric injuries of the cerebral cortex, primarily occipital parietal lobes, as well as both frontal lobes, and bilateral cerebellar hemispheres, left greater than right. She is minimally responsive and has not exhibited myoclonus or seizures. Prognosis for recovery seems very poor. Howev er, given the distribution of her cerebral injuries, if she were to survive, I would expect significant neurological deficits. With the bilateral occipito- parietal cortical infarcts, she could have cortical blindness (Misbah syndrome), or optic ataxia, optic apraxia, and simultanagnosia (Balint's syndrome), in addition to cerebellar ataxia, and cognitive/neurobehavioral dysfunction, due to bilateral frontal lobe injury. If she were to exhibit any clinical seizure-like activity, would recommend an EEG. Again, prognosis seems poor. Continue supportive care. Admission and Anticipated Discharge Date Admission Date: December 18, 2024 Subjective I was asked to assess this patient regarding repeat brain MRI results and for clinical correlation The patient was admitted to the [facility] on December 17, 2024 with an overdose of fentanyl and oxycodone. She has been minimally responsive. A brain MRI completed on December 19, 2024 reveals significant bilateral, symmetric abnormalities on diffusion and T2/FLAIR throughout the posterior cerebral hemispheres, primarily occipital parietal cortex, as well as the bilateral cerebellar hemispheres, and to a lesser extent, the cortex of both frontal lobes. The observed imaging characteristics are consistent with anoxic brain injury possibly due to hypoperfusion. She had a repeat brain MRI completed earlier today that looks similar although there is a greater degree of DWI and T2/flair signal abnormality within the left cerebellar hemisphere. The imaging pattern remains consistent with anoxic brain injury. I independently reviewed these images. A CT angiogram of the head and neck completed on December 18 was negative for any significant vascular abnormality. Clinically, this patient remains minimally responsive. She is unable to provide any history. Results & Data Vital Signs (Past 12 Hours) Vital Signs Temp Pulse Pulse Resp BP BP Pulse Ox 12/23/24 08:02 37.3 C 108 H 17 168/97 H 95 12/23/24 03:16 171/89 H 12/22/24 23:01 36.6 C 76 18 155/89 H 97 12/22/24 22:53 99 H O2 Del Method 12/23/24 08:02 Room Air 12/23/24 03:16 12/22/24 23:01 Room Air 12/22/24 22:53 Exam (Neuro) Constitutional: + thin and + frail appearing Eyes: PERRL and + nystagmus Neurologic: Cognitive Function: Other (Patient is minimally responsive, eyes open) Attention: Other (Patient does not respond to verbal, tactile, or noxious stimulation, she does not blink to threat) Hypertonicity: Arms Laterality: Right and Legs Laterality: Right Muscle Bulk/Involuntary Movements: No Involuntary Movements Details: Spontaneous nystagmus noted, roving eye movements, sometimes with bilateral downward gaze, slightly increased tone for the right arm and leg, no myoclonus or other abnormal spontaneous movements. Coding Level of Care Code 29320 SUB INP/OBS CARE MIN Diagnoses Anoxic brain injury G93.1 Intentional opiate overdose, initial encounter T40.602A Encounter type: initial encounter Injury intent: intentional self-harm Time Spent (min) 60 Comment Total time includes patient contact, chart review, counseling, note preparation (2) Opiate overdose Encounter type: initial encounter Injury intent: intentional self-harm Qualified Code(s): T40.602A - Poisoning by unspecified narcotics, intentional self-harm, initial encounter
--- NOTE | 2024-12-23 12:55 | Hospitalist Progress Note ---
Date of Service December 23, 2024 Assessment & Plan (1) Opiate overdose: (2) Encephalopathy: (3) UTI (urinary tract infection): (4) Transaminitis: Plan This pt is a 74 yo female with a h/o chronic pain on opioid therapy, HTN, DMII, migraine headaches, who presents with an opioid overdose (unclear if intentional) resulting in anoxic brain injury. #Fentanyl, Oxycodone overdose, intentional, with toxic metabolic encephalopathy, Complicated now with likely Anoxic brain jury Held Fentanyl and oxycodone on admission and was on narcan gtt without improvement. VBG without CO2 retention. CTA head and neck negative, Brain MRI consistent with anoxic brain injury vs Wernicke's vs PRES. Treated with high dose IV thiamine for 5 days and no improvement. Remains with eyes open but rigid throughout body, +nystagmus, unresponsive. Neuro reassessed on 12/23 after repeat brain MRI again showed signs consistent with anoxic brain injury-Neuro thinks prognosis poor and even if does survive, would have potentially serious neuro deficits. Recommends EEG if has seizure activity -dc thiamine as no improvement in 5 days of high dose -continue Vimpat for seizure prophylaxis -Palliative Med consulted and discussed with -goals of care need to be addressed including desire for/against artificial feeds/hydration and total care vs pursuing comfort measures-plan for family meeting 12/24 -resume IVFs for now with NS at 80mL/hr given worsening metabolic acidosis and hypokalemia-replace KCL 20 meq IV as well -follow CBC, BMP-no evidence of infection #UTI -Unable to determine if contributory at time of admission i.e. if she had symptoms. Ur cx grew ESBL E. coli -have now completed treatment with 5 days of ertapenem -Lopez catheter remains in place while comatose #Transaminitis: AST and ALT are somewhat elevated on admission and then trended downward slightly on last check. TBili and alk phos normal. Perhaps some degree of liver injury from hypotension or poor perfusion during overdose. No imaging of liver performed here. CK normal -follow LFTs in AM #HTN-BPs are elevated, has not been able to take any of her home meds due to being NPO -hold home losartan, amlodipine, and HCTZ -continue prn IV hydralazine as needed for SBP> 175 #DMII-on metformin at home, no recent HgbA1C in our system. Glucose here has been well controlled -hold home metformin -no need for BSGs VTE Prophylaxis - Lovenox 40mg SQ daily Dispo-continued stay on PCU, can dc ET CO2 monitor, awaiting GOC discussion with Palliative Admission and Anticipated Discharge Date Admission Date: December 18, 2024 Subjective Pt remains awake but unresponsive, does not follow any commands. Blinks spontaneously and does close eyes to bright light. I discussed her care with Neurology as well as Palliative Medicine and the patient's on the phone Tele with NSR, ST rates 90-100s Physical Exam Constitutional: well developed; no acute distress Eyes: + anisocoria (L>R but both reactive) and + nystagmus Respiratory: normal respiratory effort, lungs clear to auscultation Cardiovascular: RRR, no murmur, no edema Gastrointestinal (Abdomen): normal bowel sounds, soft, nontender, no hepatosplenomegaly Skin: no rashes, warm and dry Neurologic: awake (but not responsive,has eyes open,does not follow commands); + does not move all extremities Speech / Cognition: + expressive aphasia, + receptive aphasia and + abnormal cognition Motor/Sensory: no tremor Psychiatric: Orientation: + not oriented x 3 and + uncooperative Results & Data Results & Data Vital Signs (Past 12 Hours) Vital Signs Temp Pulse Resp BP Pulse Ox O2 Del Method 12/23/24 10:50 36.9 C 102 H 17 179/104 H 96 Room Air 12/23/24 08:02 37.3 C 108 H 17 168/97 H 95 Room Air 12/23/24 03:16 171/89 H Laboratory Results CBC, BMP reviewed Diagnostic Findings Brain MRI reviewed PG Care Time/CCT Total # of Minutes Spent Total Time Spent with Patient: Total time spent is greater than 50% in coordination of care (as documented) at patient's floor/unit and/or counseling patient: Coding Level of Care Code 36551 SUB INP/OBS CARE 3/50MIN Diagnoses Intentional opiate overdose, initial encounter T40.602A Encounter type: initial encounter Injury intent: intentional self-harm Encephalopathy, unspecified type G93.40 Encephalopathy type: unspecified encephalopathy UTI (urinary tract infection) N39.0 Transaminitis R74.01 (1) Opiate overdose Encounter type: initial encounter Injury intent: intentional self-harm Qualified Code(s): T40.602A - Poisoning by unspecified narcotics, intentional self-harm, initial encounter (2) Encephalopathy Encephalopathy type: unspecified encephalopathy Qualified Code(s): G93.40 - Encephalopathy, unspecified
--- NOTE | 2024-12-23 14:27 | Palliative Care Consultation ---
Date of Consultation December 23, 2024 Assessment & Plan (1) Palliative care by specialist: (2) Counseling regarding advanced directives and goals of care: (3) Encephalopathy: Encephalopathy type: unspecified encephalopathy Qualified Code(s): G93.40 - Encephalopathy, unspecified Plan 74 year old female with PMHx of chronic opiate use 2/2 chronic shoulder/back pain, migraines, HTN, DJD, arthritis, transaminitis, and insomnia admitted to hospital after being found unresponsive with question of fentanyl overdose. She remains unresponsive to verbal an tactile stimuli. Pt does require a proxy for medical decisions. Patient has exhibited current lack of decisional capacity based on the inability to convey understanding of personal PMHx, current medical condition, treatment options nor the risks / benefits of those options, and lack of ability to make decisions based on such knowledge. Hospital does not have written documentation of patient wishes concerning her chosen proxy for medical decisions. Per [place] [id number], in absence of written documentation of patient wishes, pt's proxy for medical decisions would be her spouse Amauri Stone ([phone]). Phone contact made with pt's spouse, Amauri. Introduced Palliative Medicine and explained our role in advanced care planning, symptom management and navigation through the progression of life limiting disease. Amauri was receptive to palliative services for goals of care discussions. Amauri shared that he will be visiting with pt tomorrow along with his daughter Malorie and would like to schedule mtg for the afternoon. [facility] mtg scheduled with spouse for 13:00 on 12/24/24. Plan discussed with MERY MALAVE and attending. History of Present Illness Reason for Consultation: goals of care Requesting Physician: Josi Leo MD Attending Physician: Josi Leo MD History of Present Illness Britni Stone is a 74 year old female with PMHx of chronic opiate use 2/2 chronic shoulder/back pain, migraines, HTN, DJD, arthritis, transaminitis, and insomnia who presents to the ER on 12/17/24 following an unresponsive episode. Daughter found her in floor of bathroom unresponsive with Fentanyl patches in her mouth the prior evening around 5:45pm. Unknown if she had hit her head, she did have positive response to one dose of narcan and was carried to bed. She was observed by her overnight who had to give an additional dose of naloxone around 7:30pm for respiratory depression. Allergies Allergy/AdvReac Type Severity Reaction Status Date / Time dicyclomine [From Bentyl] AdvReac Urticaria Verified 12/17/24 12:04 Home Medications Medication Instructions Recorded Confirmed Type oxycodone 10 mg tablet 10 mg PO TID PRN Pain 04/13/23 12/17/24 History rizatriptan 5 mg disintegrating 5 mg PO DIRECTED PRN Migraine 04/13/23 12/17/24 History tablet Headache losartan 25 mg tablet 25 mg PO QAM 04/19/23 12/17/24 History multivitamin 1 tab PO DAILY 04/19/23 12/17/24 History amlodipine 0 mg PO DAILY 12/17/24 12/17/24 History fentanyl 25 mcg/hr transdermal 1 patch topical Q72H 12/17/24 12/17/24 History patch hydrochlorothiazide 25 mg tablet 25 mg PO QAM 12/17/24 12/17/24 History metformin 500 mg tablet 500 mg PO QAM 12/17/24 12/17/24 History potassium chloride 0 meq PO DAILY 12/17/24 12/17/24 History Patient History Medical History Insomnia Chronic pain syndrome Transaminitis Rotator cuff arthropathy of right shoulder Migraine Hypertension Degenerative disc disease Arthritis Ankle fracture, left History of TMJ disorder Surgical History History of total hip arthroplasty right History of total knee replacement left Family History Other No family history of adverse response to anesthesia Social History Smoking Status: Never smoker Second Hand Exposure: Yes (as a child); Hx Alcohol Use: Yes Alcohol type: wine Hx Substance Use: No Preferred Language: Lithuanian Communication Ability: Impaired Railroad 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 Not responsive to verbal/tactile/painful stimuli Results & Data Vital Signs (Past 12 Hours) Vital Signs Temp Pulse Resp BP Pulse Ox O2 Del Method 12/23/24 10:50 36.9 C 102 H 17 179/104 H 96 Room Air 12/23/24 08:02 37.3 C 108 H 17 168/97 H 95 Room Air 12/23/24 03:16 171/89 H Laboratory Results Abnormal lab results 12/23/24 Range/Units 06:47 WBC 10.90 H (4.8-10.8) K/ul RBC 4.16 L (4.20-5.40) M/uL Hgb 11.1 L (12.0-16.0) g/dl Hct 34.7 L (37.0-47.0) % RDW Std Deviation 51.9 H (36.4-46.3) fL RDW Coeff of Alia 17.2 H (11.5-14.5) % MPV 9.3 L (9.4-12.4) fL Potassium 3.3 L (3.5-5.1) mmol/L Chloride 117 H (98-107) mmol/L Carbon Dioxide 17 L (21-32) mmol/L BUN 26 H (6-23) mg/dl BUN/Creatinine Ratio 34.2 H (10-20) Diagnostic Findings Chest X-Ray 12/17/24 11:54 XR chest 1V portable CLINICAL HISTORY: Unresponsive episode COMPARISON STUDY: 08/05/2024 FINDINGS: Heart size and pulmonary vasculature are normal. No effusion, consolidation, or pneumothorax. IMPRESSION: No acute findings. ACT 112: Negative or not required by law. Electronically signed by: Miguel Laureano M.D. 12/17/2024 12:29 PM Hip/Pelvis X-Ray 12/17/24 12:40 XR hip GABRIELLE 2v w pelvis CLINICAL HISTORY: fall ?fracture TECHNIQUE: 2 views of the bilateral hips and single frontal view of the pelvis were obtained. Comparison: None available at the time of this dictation. FINDINGS: There is no evidence of an acute fracture. Right hip arthroplasty is seen. Degenerative changes are seen in the lumbar spine and left hip. No soft tissue abnormality is seen. IMPRESSION: No evidence of acute osseous injury. ACT 112: Negative or not required by law. Electronically signed by: Taz Mcdermott M.D. 12/17/2024 1:[address] 12/18/24 04:36 EXAM: CT head/brain wo con CLINICAL HISTORY: HTN; anisocoria TECHNIQUE: Axial non-contrast CT scan of the brain was performed from the skull base to the high parietal region. One of the following dose reduction techniques were utilized for this exam: Automated exposure control, adjustment of the mA and/or kV according to patient size, use of iterative reconstruction. CTDI: 35.72 , DLP: 625.80 COMPARISON: CT 08/05/2024. FINDINGS: Brain Parenchyma: Mild age related atrophic changes as noted by mild widening of sulci, fissures and cisterns. Mild periventricular hypodensity consistent with old microvascular related changes. No evidence of acute infarct, hemorrhage, or mass effect. No abnormal areas of hypo- or hyperattenuation. Ventricular System: Ventricles are normal in size and configuration. No evidence of hydrocephalus or ventricular enlargement. Subarachnoid Spaces: Normal sulci and cisterns. No evidence of subarachnoid hemorrhage or extra-axial fluid collections. Cerebellum and Brainstem: Normal size and signal. No masses, lesions, or areas of abnormal signal. Orbits: Normal appearance of the globes, optic nerves, and extraocular muscles. No evidence of orbital masses or abnormal signal. Sinuses: Mucosal thickening and filling of all paranasal sinuses. Mastoid Air Cells: Clear mastoid air cells. No evidence of mastoiditis. Skull: Normal skull morphology. IMPRESSION: 1. Interval new Gamble sinusitis. 2. No acute intracranial abnormalities. Electronically signed by Jenny Jauregui 12-18-2024 05:37 AM Head CTA 12/18/24 08:11 CT angio head wo/w CLINICAL HISTORY: altered mental status TECHNIQUE: Contiguous axial CT images of the head were acquired from the base of the skull to the vertex without intravenous contrast administration. CT angiography of the head was performed following intravenous administration of iodinated contrast. Coronal and sagittal MIPS were obtained from the axial data set and were submitted for review. Automated dose lowering techniques and/or adjustment according to patient size were utilized for this examination. All measurements were calculated based on NASCET criteria. Comparison: Comparison is made to CT head 12/18/2024 FINDINGS: CT head: There is no acute intracranial hemorrhage or evidence of acute territorial infarction. No shift of the midline structures, mass effect, or extra-axial abnormalities are shown. Maxillary, ethmoid, and frontal sinus opacification is seen. CTA Head: The anterior and posterior cerebral circulations are patent. origin of the bilateral posterior cerebral arteries noted. IMPRESSION: 1. No acute intracranial hemorrhage, evidence of acute territorial infarction, or other acute intracranial disease process. 2. No occlusion, hemodynamically significant stenosis, aneurysm, dissection, or arteriovenous malformation in the major intracranial arteries. Assessment of stenosis of the internal carotid arteries is based on NASCET criteria. ACT 112: Negative or not required by law. Electronically signed by: Taz Mcdermott M.D. 12/18/2024 9:05 AM Neck CTA 12/18/24 08:11 CT angio neck with con CLINICAL HISTORY: altered mental status. COMPARISON STUDY: None TECHNIQUE: Following the IV administration of of Optiray, CT angiogram of the neck was performed from the aortic arch to the skull base. Images are reviewed in the axial, sagittal, and coronal planes. 3-D MIPS images are created and assessed. IV contrast was administered without complication. All measurements were calculated based on NASCET criteria. A dose lowering technique was utilized adhering to the principles of ALARA. CT DOSE: 1084.47 mGy.cm FINDINGS: There are carotid bulb calcifications and mild scattered atherosclerotic calcifications. Bilateral common and internal carotid arteries showed no significant narrowing or occlusion. The right vertebral artery is dominant and the left vertebral artery is very diminutive the umbilicus, anatomic variant. No significant narrowing or occlusion seen of the vertebral arteries. There are diffuse cervical spine degenerative changes. IMPRESSION: No significant arterial narrowing or occlusion seen at the neck. ACT 112: Negative or not required by law. The above report was generated using voice recognition software. It may contain grammatical, syntax or spelling errors. Electronically signed by: Miguel Laureano M.D. 12/18/2024 9:03 AM Brain MRI 12/23/24 06:00 EXAM: MR brain wo con CLINICAL HISTORY: follow up . TECHNIQUE: MRI of the brain was performed without contrast with multiplanar sequences obtained. COMPARISON: Comparison is made with prior MRI dated 12/19/2024. FINDINGS: Brain Parenchyma: No evidence of acute infarction or hemorrhage. Normal walker-white matter differentiation. No mass lesions or focal cortical abnormalities identified. Bilateral frontoparietal periventricular white matter thin sheets of high T2/FLAIR signal with no related edema or mass effect denoting small artery disease. Ventricles and Sulci: Normal size and configuration of the lateral ventricles, third ventricle, and fourth ventricle. No evidence of hydrocephalus or ventriculomegaly. Sylvian fissures, sulci, and cisterns are prominent (age-related involutional changes). Posterior Fossa: Bilateral cerebellar small areas/foci of bright DWI, low T1 and high T2/FLAIR signals, currently showing reduced their T1 and DWI signals compared to previous study, likely aging ischemic insult. Brainstem appear normal without evidence of mass lesions or signal abnormalities. Cranial Nerves: Normal course and appearance of cranial nerves identified. Vessels: No evidence of vascular malformations or aneurysms. Intracranial arteries and veins appear normal without evidence of stenosis or occlusion. Orbits and Skull Base: Orbits and skull base structures are normal without evidence of abnormalities. Marked pansinusitis relatively sparing the left maxillary sinus. Mild bilateral mastoiditis. IMPRESSION: 1. Aging of the previously seen bilateral cerebellar small ischemic areas/foci. 2. 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 3. Pansinusitis, unchanged. Electronically signed by Jenny Jauregui 12-23-2024 10:00 AM Medications Administered Current Inpatient Medications Aspirin (Aspirin 300 Mg Supp) 300 mg OK DAILY [facility] Stop: 01/20/25 08:59 Last Admin: 12/23/24 11:05 Dose: 300 mg Enoxaparin Sodium (Enoxaparin Inj 40 Mg/0.4 Ml Syr) 40 mg SQ QPM [facility] Stop: 01/16/25 20:59 Last Admin: 12/22/24 20:42 Dose: 40 mg Hydralazine HCl (Hydralazine Hcl 20 Mg/Ml Vial) 10 mg IV Q6H PRN PRN Reason: hypertension sbp >175 or >100 Stop: 01/21/25 17:23 Last Admin: 12/23/24 02:31 Dose: 10 mg Thiamine HCl 500 mg/ Sodium (Chloride) 55 mls @ 210 mls/hr IV Q8H [facility] Stop: 12/24/24 02:46 Last Infusion: 12/23/24 13:45 Dose: Infused Naloxone HCl 12.5 mg/ Sodium (Chloride) 250 mls @ 66 mls/hr IV .Q3H48M NICO; Protocol Stop: 01/17/25 09:59 Last Admin: 12/19/24 13:50 Dose: Not Given Lacosamide 100 mg/ Sodium (Chloride) 60 mls @ 120 mls/hr IV Q12H [facility] Stop: 01/20/25 20:59 Last Infusion: 12/23/24 09:45 Dose: Infused Sodium Chloride (Nss) 1,000 mls @ 80 mls/hr IV .[id number] [facility] Stop: 12/24/24 08:14 Last Admin: 12/23/24 09:40 Dose: 80 mls/hr Losartan Potassium (Losartan Potassium 25 Mg Tab) 25 mg PO QAM [facility] Stop: 01/16/25 13:44 Last Admin: 12/23/24 09:41 Dose: Not Given Naloxone HCl (Naloxone Hcl 0.4 Mg/1 Ml Vial/Carp) 0.1 mg IV Q5M PRN PRN Reason: Oversedation/Resp Depression Stop: 01/16/25 13:18 Last Admin: 12/18/24 08:04 Dose: 0.1 mg PG Care Time/CCT Total # of Minutes Spent Total Time Spent with Patient: Total time spent is greater than 50% in coordination of care (as documented) at patient's floor/unit and/or counseling patient: [place] [address] IN/OBS CONSULT LVL 4,60M Patient Type New History Problem Focused Exam Problem Focused Medical Decision Making Low Complexity Diagnoses Palliative care by specialist Z51.5 Counseling regarding advanced directives and goals of care Z71.89 Encephalopathy, unspecified type G93.40 Encephalopathy type: unspecified encephalopathy
[2024-12-24] MEDS: hydrALAZINE HCL 20 MG/ML VIAL IV PRN (07:54)
[2024-12-24 08:35] LABS: Basophils # (auto) 0.04 K/uL (0.00-0.20); Basophils % (auto) 0.3 %; Eosinophils # (auto) 0.01 K/uL (0.00-0.50); Eosinophils % (auto) 0.1 %; Hematocrit (blood only) 35.4 % (37.0-47.0); Hemoglobin 11.3 g/dl (12.0-16.0); Immature Granulocytes # (auto) 0.07 K/uL (0.01-0.20); Immature Granulocytes % (auto) 0.5 %; Lymphocytes # (auto) 1.45 K/uL (1.20-3.40); Mean Corpuscular Hemoglobin 26.8 pg (25.0-34.0); Mean Corpuscular Hgb Conc 31.9 g/dL (32.0-36.0); Mean Corpuscular Volume 83.9 fL (80.0-100.0); Mean Platelet Volume 9.5 fL (9.4-12.4); Monocytes # (auto) 0.41 K/uL (0.11-0.59); Monocytes % (auto) 3.1 %; Neutrophils # (auto) 11.17 K/uL (1.40-6.50); Platelet Count 319 K/uL (130-400); RDW Coefficient of Variation 17.1 % (11.5-14.5); Red Blood Count 4.22 M/uL (4.20-5.40); White Blood Count 13.15 K/ul (4.8-10.8)
[2024-12-24 08:56] LABS: Albumin Globulin Ratio 0.8 (0.9-2); Albumin Level 3.4 gm/dl (3.4-5.0); BUN Creatinine Ratio 34.2 (10-20); Bilirubin,Total 0.5 mg/dl (0.2-1.0); Calcium 9.2 mg/dl (8.6-10.3); Creatinine Clr Calc Pharmacy 48.6 ml/min; Globulin 4.2 gm/dl (2.5-4.0); Magnesium 1.6 mg/dl (1.7-2.4); Phosphorus 3.1 mg/dl (2.5-4.9); Total Protein 7.6 gm/dl (6.0-8.3)
[2024-12-24 08:58] LABS: Potassium 3.4 mmol/L (3.5-5.1)
--- NOTE | 2024-12-24 11:45 | Hospitalist Progress Note ---
Date of Service December 24, 2024 Assessment & Plan (1) Opiate overdose: (2) Encephalopathy: (3) UTI (urinary tract infection): (4) Transaminitis: Plan This pt is a 74 yo female with a h/o chronic pain on opioid therapy, HTN, DMII, migraine headaches, who presents with an opioid overdose (unclear if intentional) resulting in anoxic brain injury. #Fentanyl, Oxycodone overdose, ?intentional, with toxic metabolic encephalopathy, Complicated now with likely Anoxic brain injury Held Fentanyl and oxycodone on admission and was on narcan gtt without improvement. VBG without CO2 retention. CTA head and neck negative, Brain MRI consistent with anoxic brain injury vs Wernicke's vs PRES. Treated with high dose IV thiamine for 5 days and no improvement. Remains with eyes open but rigid throughout body aches but more flaccid in LUE, +nystagmus, unresponsive. Neuro reassessed on 12/23 after repeat brain MRI again showed signs consistent with anoxic brain injury-Neuro thinks prognosis poor and even if does survive, would have potentially serious neuro deficits. Recommends EEG if has seizure activity She was provided with IV fluid hydration for multiple days but had no enteral nutrition. After lengthy palliative discussion with patient's , 2 serena babita, and palliative medicine SHAFTING WORKER, decision made to pursue comfort measures only on 12/24 -Discontinue Vimpat, IV fluids, all lab draws and further evaluation -Provide supportive care -Given her longstanding opioid dependence and chronic pain, will have IV morphine available. She does not seem to be in pain, but her daughter is concerned that she is having pain without being able to express it -IV Ativan as needed for anxiety, and hyoscyamine and/or atropine drops as needed for secretions -[facility] #UTI -Unable to determine if contributory at time of admission i.e. if she had symptoms. Ur cx grew ESBL E. coli -She completed treatment with 5 days of ertapenem -Lopez catheter remains in place while comatose #Transaminitis: AST and ALT are somewhat elevated on admission and then trended downward slightly on last check. TBili and alk phos normal. Perhaps some degree of liver injury from hypotension or poor perfusion during overdose. No imaging of liver performed here. CK normal No further lab draws #HTN-BPs are elevated, has not been able to take any of her home meds due to being NPO Discontinue antihypertensives on comfort measures #DMII-on metformin at home, no recent HgbA1C in our system. Glucose here has been well controlled No need for Accu-Cheks or blood sugar control VTE Prophylaxis -discontinue Lovenox 40mg SQ daily now on comfort measures Dispo-downgrade to medical/surgical unit and placed on comfort measures only, [facility]. Case management involved Admission and Anticipated Discharge Date Admission Date: December 18, 2024 Subjective Patient remains nonverbal and unresponsive but did grimace her face and cry when her family was present discussing her goals of care and pursuing comfort measures. She was unable to follow any commands but does have her eyes open. I discussed her care at length with palliative medicine as well as with the patient's and daughter, Daly, at the bedside as well as her other daughter Raquel on the phone. Patient's /spokesperson reported that the patient always told him that she would never want artificial feeds or hydration and would not want to have her life prolonged in the sort of state that she is in currently. Decision was made to pursue comfort measures only. I spent 60 minutes in the care of this patient and in discussions with multiple family members on the phone and in person as well as with palliative medicine. Physical Exam Constitutional: well developed; no acute distress Eyes: + anisocoria (L>R but both reactive) and + nystagmus Respiratory: normal respiratory effort Skin: no rashes, warm and dry Neurologic: awake (but not responsive,has eyes open,does not follow commands); + does not move all extremities Speech / Cognition: + expressive aphasia, + receptive aphasia and + abnormal cognition Motor/Sensory: no tremor Left upper extremity is more flaccid, right upper extremity is rigid, bilateral lower extremities are more rigid Psychiatric: Orientation: + not oriented x 3 and + uncooperative Results & Data Results & Data Vital Signs (Past 12 Hours) Vital Signs Temp Pulse Resp BP BP Pulse Ox O2 Del Method 12/24/24 11:13 36.9 C 102 H 16 182/109 H 97 Room Air 12/24/24 07:32 37.0 C 107 H 16 187/107 H 97 Room Air 12/24/24 03:59 36.8 C 98 H 24 166/105 H 97 Room Air Laboratory Results CBC, BMP, LFTs, magnesium reviewed PG Care Time/CCT Total # of Minutes Spent Total Time Spent with Patient: Total time spent is greater than 50% in coordination of care (as documented) at patient's floor/unit and/or counseling patient: Coding Level of Care Code 57651 SUB INP/OBS CARE 3/50MIN Diagnoses Intentional opiate overdose, initial encounter T40.602A Encounter type: initial encounter Injury intent: intentional self-harm Encephalopathy, unspecified type G93.40 Encephalopathy type: unspecified encephalopathy UTI (urinary tract infection) N39.0 Transaminitis R74.01 (1) Opiate overdose Encounter type: initial encounter Injury intent: intentional self-harm Qualified Code(s): T40.602A - Poisoning by unspecified narcotics, intentional self-harm, initial encounter (2) Encephalopathy Encephalopathy type: unspecified encephalopathy Qualified Code(s): G93.40 - Encephalopathy, unspecified
[2024-12-24] MEDS: MAGNESIUM SULFATE / D5W 1 GM/100 ML BAG IV ONE (12:32)
[2024-12-24] MEDS: D5W AND 1/2NSS + 20MEQ KCL 20 MEQ/1,000 ML BAG IV SCH (12:32)
[2024-12-24] MEDS ORDERED: HYOSCYAMINE SULFATE 0.125 MG TAB SL PRN (14:49)
[2024-12-24] MEDS ORDERED: ATROPINE SULFATE 1% OP SOLN 5 ML BTL SL PRN (14:49)
[2024-12-24] MEDS ORDERED: HALOPERIDOL ORAL SOLN 2 MG/ML PO PRN (14:49)
[2024-12-24] MEDS ORDERED: LORazepam 2 MG/1 ML VIAL IV PRN ×2 (14:49→15:12)
[2024-12-24] MEDS ORDERED: GLYCOPYRROLATE 0.2 MG/ML VIAL IV PRN ×2 (14:49→15:12)
[2024-12-24] MEDS ORDERED: ONDANSETRON INJ 2 MG/ML 2 ML VIAL IV PRN ×2 (14:49→15:12)
--- NOTE | 2024-12-24 14:57 | Palliative Family Discussion ---
Date of Service December 24, 2024 Patient Directed Conference Time of Meetin:30-14:15 Participants: Elizabeth Marroquin AGACNP Patient participation: no Patient Support System: spouse, 2 adult daughters Other Healthcare Provider Participation: Josi Leo MD Meeting Location: bedside Advanced Directive available: No If yes, descriptors: The patient's surrogate medical decision maker participated: spouse present Legally authorized health care proxy: spouse Other surrogate: n/a A family meeting was held for LUIZA JAMES. This meeting was necessary for determining the appropriate course of treatment. Topics of Discussion Topics of Discussion: 1. goals of care 2. prognostication and quality of life 3. hospice care Other Content of Meetin. Opportunity given for participants to speak and ask questions. 2. Participants were assured of attention to patient comfort. 3. Reassurance provided. 4. Support was provided for informed, good-usman decisions. 5. Emotions expressed by family were acknowledged and addressed. 6. Follow-up Outpatient: n/a 7. Plan of Care: MECHANICAL ENGINEERING INTERN, plan for dc to SNF with hospice Scheduled GOC discussion held at bedside with pt's spouse Amauri and daughter Malorie. Dr Leo was present for meeting and the pt's daughter Raquel was involved by phone. Family all expressed concern that the patient has had no signs of improvement since admission and would not consider this an acceptable quality of life. Spouse shared that he and the pt have had conversations throughout life about end of life planning. He shared that the pt has always been clear about "no extraordinary measures" in the event that she suffered a nonrecoverable iilness or iinjury. Family questioned possibility of EEG to confirm pt has a "flat lline EEG" and has no brain activity. Discussed pt's current cognitive state and helped family to differentiate coma from brain . Helped family understand that pt does have some cognitive as well as basal brain activity and shared concern that this may be pt's new baseline cognitive and functional status. Family all in agreement to transition to comfort directed care given pts poor prognosis. Discussed hospice benefit: an interdisciplinary program offered by nurses, nurses aides, social workers, chaplains and a medical editor for patients with a terminal condition and a life expectancy of less than 6 months. This is covered by Medicare at 100%/no out of pocket expense to patient and all meds/supplies needed by patient for the reason they are on hospice are paid for/covered by hospice. The goal is assure quality of life of the patient in their home setting (home, retirement, inpatient hospice setting) by providing symptoms management, psychosocial and spiritual support. However, they cannot offer 24 hours care and if the family is unable to provide that care, they will have to consider personal care with out of pocket cost vs. retirement placement. We discussed the goals of hospice as a patient service and the goals of care; we discussed EOL trajectories and transitions ovidio the emotional impact of realizing mortality as a concrete reality from prior abstract considerations. Pt was reassured that no matter where they are along this trajectory, they are not alone - their medical team will remain by their side through their journey. Discussed the pros/cons of accepting help when especially weakened and distressed by pain-which would also help provide relief/decrease caregiver burden/strain. : Discussed changes pt may move through in the dying process including but not limited to sleeping more, disorientation when awake, restlessness, diminished senses/inability to respond to stimulus although ability to be aware of them remains intact longer, and changes in body temperatures, skin changes/mottling/cyanosis, respiratory pattern changes, and oral secretions. Family verbalized understanding. The goal is to assure a peaceful . Plan: Will transition to comfort directed care at this time, family request information for dc to SNF with hospice care. Time Involved in Meeting: I spent 70 minutes overall addressing this case: 15 in medical data review/discussion with referring provider(s) and/or preparation for the visit 5 in direct interaction with the patient 35 Advance Care Planning/Goals of Care discussions as detailed above in note (must be >16min) 10 in subsequent review and synthesis of assessment and plan 5 in communicating with other providers regarding the patient's case:
[2024-12-24] MEDS ORDERED: MoRPHine SULFATE 10 MG/0.5 ML UDP PO PRN (15:12)
[2024-12-24] MEDS ORDERED: MoRPHine SULFATE 2 MG/ML CARP IV PRN (15:12)
--- NOTE | 2024-12-25 09:13 | Palliative Care Progress Note ---
Date of Service December 25, 2024 Assessment & Plan (1) Palliative care by specialist: (2) Comfort measures only status: (3) Need for comfort care: Plan 74 year old female with PMHx of chronic opiate use 2/2 chronic shoulder/back pain, migraines, HTN, DJD, arthritis, transaminitis, and insomnia admitted to hospital after being found unresponsive with question of fentanyl overdose. She remains unresponsive to verbal an tactile stimuli. She was transitioned to OTORHINOLARYNGOLOGIST on 12/24/24 and is pending SNF placement with hospice. OTORHINOLARYNGOLOGIST Symptom manamgement: Pain/dyspnea/tachypnea morphine 2mg IVP PRN [id number] Consider titratable morphine drip if pt requires >3 PRN doses in under two consecutive hours. Nausea/vomitting zofran 4mg IVP q4h PRN Agitation ativan 0.5mg IVP q4h PRN Hyperactive delirium haldol 5mg IVP q6h PRN Secretions - if repositioning not effective robinul 0.4mg IV q4h PRN atropine SL 3 drops Q1h PRN Nursing care: Discontinue all medications not directed towards comfort. Detether pt from IV tubing, monitor cables, and check vitals once per shift. Please continue HFNC and titrate down as able for patient comfort. Use medications above PRN for dyspnea/tachypnea and do not increase oxygen once titrated down. Assess q1h for pain/dyspnea and treat accordingly. Admission and Anticipated Discharge Date Admission Date: December 18, 2024 Subjective Assessed pt at bedside, She was transitioned to OTORHINOLARYNGOLOGIST on 12/24/24. Pt is unresponsive to verbal and gentle tactile stimuli, did not attempt to awaken in concert with comfort directed care. She appears comfortable,, VSS, NAD on RA. She has had minimal need for PRN medications overnight. No visitors at bedside. Review of Systems Review of Systems: Unobtainable due to cognitive status Physical Exam Physical Exam: Patient lying in bed, Eyes open, does not track. Not responsive to verbal/tactile/painful stimuli Results & Data Vital Signs (Past 12 Hours) Vital Signs Temp 37.2 C 12/25/24 10:28 Pulse 110 H 12/25/24 10:28 Resp 18 12/25/24 10:28 BP 186/108 H 12/25/24 10:28 Pulse Ox 94 12/25/24 10:28 O2 Del Method Room Air 12/25/24 10:28 Intake & Output 12/24/24 12/25/24 12/25/24 18:59 06:59 18:59 Intake Total 1493.334 / 1493.334 Balance 1493.334 / 1493.334 Weight 45.8 kg Intake: IV 1493.334 / 1493.334 D5w and 1/2Nss + 20Meq KCl 20 186.667 / 186.667 meq In 1,000 ml @ 70 mls/hr IV .[id number] [facility] Rx#:[id number] Lacosamide 100 mg In Sodium 60 / 60 Chloride 0.9% 50 ml @ 120 mls/ hr IV Q12H [facility] Rx#:[id number] Magnesium Sulfate / D5w 1 gm In 100 / 100 100 ml @ 50 mls/hr IV ONE ONE Rx#:[id number] Sodium Chloride 0.9% 1,000 ml @ 1146.667 / 1146.667 80 mls/hr IV .[id number] [facility] Rx#: [id number] Laboratory Results No further labs or diagnostics in concert with comfort directed care. Diagnostic Findings No further labs or diagnostics in concert with comfort directed care. Medications Administered Current Inpatient Medications Acetaminophen (Acetaminophen 650 Mg Supp) 650 mg AK Q6H PRN PRN Reason: Fever 37.8C or Above Stop: 01/23/25 14:48 Atropine Sulfate (Atropine Sulfate 1% Op Soln 5 Ml Btl) 4 drops SL Q1H PRN PRN Reason: Secretions or pulm congestion Stop: 01/23/25 14:48 Haloperidol (Haloperidol Oral Soln 2 Mg/Ml) 0.5 mg PO Q4H PRN PRN Reason: Anxiety/Agitation Stop: 01/23/25 14:48 Hydromorphone HCl (Hydromorphone Inj 0.5 Mg/0.5 Ml Syr) 0.5 mg IV Q4H PRN PRN Reason: Pain or Respiratory Distress Stop: 01/07/25 14:48 Hyoscyamine (Hyoscyamine Sulfate 0.125 Mg Tab) 0.125 mg SL Q4H PRN PRN Reason: Secretions or Pulm Congestion Stop: 01/23/25 14:48 Lorazepam (Lorazepam 2 Mg/1 Ml Vial) 0.5 mg IV Q4H PRN PRN Reason: Anxiety/Agitation Stop: 01/23/25 15:11 Morphine Sulfate (Morphine Sulfate 10 Mg/0.5 Ml Udp) 5 mg PO Q3H PRN PRN Reason: Pain or Respiratory Distress Stop: 01/07/25 15:11 Ondansetron HCl (Ondansetron Inj 2 Mg/Ml 2 Ml Vial) 4 mg IV Q4H PRN PRN Reason: Nausea &/or Vomiting Stop: 01/23/25 15:11 PG Care Time/CCT Total # of Minutes Spent Total Time Spent with Patient: Total time spent is greater than 50% in coordination of care (as documented) at patient's floor/unit and/or counseling patient: Coding [place] [address] SUB INP/OBS CARE 2/35MIN Patient Type Established History Problem Focused Exam Problem Focused Medical Decision Making Low Complexity Diagnoses Palliative care by specialist Z51.5 Comfort measures only status Z51.5 Need for comfort care
[2024-12-25 10:28] VITALS: BP 186/108; PULSE 110; RESP 18; TEMP 99; O2SAT 94
--- NOTE | 2024-12-25 15:41 | Hospitalist Progress Note ---
Date of Service December 25, 2024 Assessment & Plan (1) Opiate overdose: (2) Encephalopathy: (3) UTI (urinary tract infection): (4) Transaminitis: Plan This pt is a 74 yo female with a h/o chronic pain on opioid therapy, HTN, DMII, migraine headaches, who presents with an opioid overdose (unclear if intentional) resulting in anoxic brain injury. #Fentanyl, Oxycodone overdose, ?intentional, with toxic metabolic encephalopathy, Complicated now with likely Anoxic brain injury Held Fentanyl and oxycodone on admission and was on narcan gtt without improvement. VBG without CO2 retention. CTA head and neck negative, Brain MRI consistent with anoxic brain injury vs Wernicke's vs PRES. Treated with high dose IV thiamine for 5 days and no improvement. Remains with eyes open but rigid throughout body aches but more flaccid in LUE, +nystagmus, unresponsive. Neuro reassessed on 12/23 after repeat brain MRI again showed signs consistent with anoxic brain injury-Neuro thinks prognosis poor and even if does survive, would have potentially serious neuro deficits. Recommends EEG if has seizure activity She was provided with IV fluid hydration for multiple days but had no enteral nutrition. After lengthy palliative discussion with patient's , 2 serena babita, and palliative medicine IT BUSINESS ANALYST, decision made to pursue comfort measures only on 12/24 -Discontinued Vimpat, IV fluids, all lab draws and further evaluation -Provide supportive care with LIVESTOCK EXHIBITOR -Given her longstanding opioid dependence and chronic pain, will have IV morphine available. She does not seem to be in pain, but her daughter is concerned that she is having pain without being able to express it -IV Ativan as needed for anxiety or seizure activity/tremor-will ask nurse to give a dose now -continue hyoscyamine and/or atropine drops as needed for secretions -Plan to place in [facility] with hospice #UTI -Unable to determine if contributory at time of admission i.e. if she had symptoms. Ur cx grew ESBL E. coli -She completed treatment with 5 days of ertapenem -Lopez catheter remains in place #Transaminitis: AST and ALT are somewhat elevated on admission and then trended downward slightly on last check. TBili and alk phos normal. Perhaps some degree of liver injury from hypotension or poor perfusion during overdose. No imaging of liver performed here. CK normal No further lab draws #HTN-BPs are elevated, has not been able to take any of her home meds due to being NPO Discontinue antihypertensives on comfort measures #DMII-on metformin at home, no recent HgbA1C in our system. Glucose here has been well controlled No need for Accu-Cheks or blood sugar control VTE Prophylaxis -discontinued Lovenox 40mg SQ daily now on comfort measures Dispo-continued stay medical/surgical unit on comfort measures only, awaiting placement at [facility] with hospice. Case management involved Admission and Anticipated Discharge Date Admission Date: December 18, 2024 Subjective Pt has eyes open but not tracking with eyes, no response to verbal or tactile stimulus Has not received any comfort meds Physical Exam Constitutional: well developed; no acute distress Eyes: + anisocoria (L>R but both reactive) and + nystagmus Respiratory: normal respiratory effort, lungs clear to auscultation normal respiratory effort Cardiovascular: RRR, no murmur, no edema Gastrointestinal (Abdomen): normal bowel sounds, soft, nontender, no hepatosplenomegaly Skin: no rashes, warm and dry Neurologic: awake (but not responsive,has eyes open,does not follow commands); + does not move all extremities Speech / Cognition: + expressive aphasia, + receptive aphasia and + abnormal cognition Motor/Sensory: + fasciculations (chin/jaw making repetitive tremors intermittently) remains rigid in RUE and BLE and flaccid in LUE Results & Data Results & Data Vital Signs (Past 12 Hours) Vital Signs Temp Pulse Resp BP Pulse Ox O2 Del Method 12/25/24 10:28 37.2 C 110 H 18 186/108 H 94 Room Air 12/25/24 08:00 Room Air PG Care Time/CCT Total # of Minutes Spent Total Time Spent with Patient: Total time spent is greater than 50% in coordination of care (as documented) at patient's floor/unit and/or counseling patient: Coding Level of Care Code 75339 SUB INP/OBS CARE 12/20MIN Diagnoses Intentional opiate overdose, initial encounter T40.602A Encounter type: initial encounter Injury intent: intentional self-harm Encephalopathy, unspecified type G93.40 Encephalopathy type: unspecified encephalopathy UTI (urinary tract infection) N39.0 Transaminitis R74.01 (1) Opiate overdose Encounter type: initial encounter Injury intent: intentional self-harm Qualified Code(s): T40.602A - Poisoning by unspecified narcotics, intentional self-harm, initial encounter (2) Encephalopathy Encephalopathy type: unspecified encephalopathy Qualified Code(s): G93.40 - Encephalopathy, unspecified
[2024-12-25] MEDS: LORazepam 2 MG/1 ML VIAL IV PRN (15:59)
[2024-12-26] MEDS: HYDROmorphone INJ 0.5 MG/0.5 ML SYR IV PRN (09:42)
--- NOTE | 2024-12-26 10:01 | Palliative Care Progress Note ---
Date of Service December 26, 2024 Assessment & Plan (1) Palliative care by specialist: (2) Comfort measures only status: (3) Need for comfort care: Plan 74 year old female with PMHx of chronic opiate use 2/2 chronic shoulder/back pain, migraines, HTN, DJD, arthritis, transaminitis, and insomnia admitted to hospital after being found unresponsive with question of fentanyl overdose. She remains unresponsive to verbal an tactile stimuli. She was transitioned to LINT CLEANER on 12/24/24 and is pending SNF placement with hospice. LINT CLEANER Symptom manamgement: Pain/dyspnea/tachypnea dilaudid 0.5mg IVP PRN [id number] Consider titratable dilaudid drip if pt requires >3 PRN doses in under two consecutive hours. Nausea/vomitting zofran 4mg IVP q4h PRN Agitation ativan 0.5mg IVP q4h PRN consider scheduled ativan given pt nonverbal with chronic benzo/opiate use Hyperactive delirium haldol 5mg IVP q6h PRN Secretions - if repositioning not effective robinul 0.4mg IV q4h PRN atropine SL 3 drops Q1h PRN Nursing care: Discontinue all medications not directed towards comfort. Detether pt from IV tubing, monitor cables, and check vitals once per shift. Please continue HFNC and titrate down as able for patient comfort. Use medications above PRN for dyspnea/tachypnea and do not increase oxygen once titrated down. Assess q1h for pain/dyspnea and treat accordingly. Admission and Anticipated Discharge Date Admission Date: December 18, 2024 Subjective Assessed pt at bedside, She was transitioned to LINT CLEANER on 12/24/24. She has had minimal need for PRN medications overnight. Pt is unresponsive to verbal and gentle tactile stimuli, awake with spontaneously open eyes but does not track. She is currently tachypneic with furrowed brow and lip quiver, requested BSRN medicate for discomfort. Encouraged medication for comfort be administered based on nonverbal signs of pain/dyspnea. No visitors at bedside. Review of Systems Review of Systems: Unobtainable due to cognitive status Physical Exam Physical Exam: Patient lying in bed, Eyes open, does not track. Not responsive to verbal/tactile/painful stimuli Results & Data Vital Signs (Past 12 Hours) Vital Signs O2 Del Method 12/26/24 07:38 Room Air Laboratory Results No further labs or diagnostics in concert with comfort directed care. Diagnostic Findings No further labs or diagnostics in concert with comfort directed care. Medications Administered Current Inpatient Medications Acetaminophen (Acetaminophen 650 Mg Supp) 650 mg AK Q6H PRN PRN Reason: Fever 37.8C or Above Stop: 01/23/25 14:48 Atropine Sulfate (Atropine Sulfate 1% Op Soln 5 Ml Btl) 4 drops SL Q1H PRN PRN Reason: Secretions or pulm congestion Stop: 01/23/25 14:48 Haloperidol (Haloperidol Oral Soln 2 Mg/Ml) 0.5 mg PO Q4H PRN PRN Reason: Anxiety/Agitation Stop: 01/23/25 14:48 Hydromorphone HCl (Hydromorphone Inj 0.5 Mg/0.5 Ml Syr) 0.5 mg IV Q4H PRN PRN Reason: Pain or Respiratory Distress Stop: 01/07/25 14:48 Last Admin: 12/26/24 09:42 Dose: 0.5 mg Hyoscyamine (Hyoscyamine Sulfate 0.125 Mg Tab) 0.125 mg SL Q4H PRN PRN Reason: Secretions or Pulm Congestion Stop: 01/23/25 14:48 Lorazepam (Lorazepam 2 Mg/1 Ml Vial) 0.5 mg IV Q4H PRN PRN Reason: Anxiety/Agitation or seizure Stop: 01/23/25 15:11 Last Admin: 12/25/24 15:59 Dose: 0.5 mg Morphine Sulfate (Morphine Sulfate 10 Mg/0.5 Ml Udp) 5 mg PO Q3H PRN PRN Reason: Pain or Respiratory Distress Stop: 01/07/25 15:11 Ondansetron HCl (Ondansetron Inj 2 Mg/Ml 2 Ml Vial) 4 mg IV Q4H PRN PRN Reason: Nausea &/or Vomiting Stop: 01/23/25 15:11 PG Care Time/CCT Total # of Minutes Spent Total Time Spent with Patient: Total time spent is greater than 50% in coordination of care (as documented) at patient's floor/unit and/or counseling patient: Coding [place] [address] SUB INP/OBS CARE 2/35MIN Patient Type Established History Expanded Problem Focused Exam Expanded Problem Focused Medical Decision Making Moderate Complexity Diagnoses Palliative care by specialist Z51.5 Comfort measures only status Z51.5 Need for comfort care
[2024-12-26] MEDS: LORazepam 2 MG/1 ML VIAL IV SCH (10:57)
--- NOTE | 2024-12-26 11:48 | Hospitalist Progress Note ---
Date of Service December 26, 2024 Assessment & Plan (1) Opiate overdose: (2) Encephalopathy: (3) UTI (urinary tract infection): (4) Transaminitis: Plan This pt is a 74 yo female with a h/o chronic pain on opioid therapy, HTN, DMII, migraine headaches, who presents with an opioid overdose (unclear if intentional) resulting in anoxic brain injury. #Fentanyl, Oxycodone overdose, ?intentional, with toxic metabolic encephalopathy, Complicated now with likely Anoxic brain injury Held Fentanyl and oxycodone on admission and was on narcan gtt without improvement. VBG without CO2 retention. CTA head and neck negative, Brain MRI consistent with anoxic brain injury vs Wernicke's vs PRES. Treated with high dose IV thiamine for 5 days and no improvement. Remained with eyes open but rigid throughout body aches but more flaccid in LUE, +nystagmus, unresponsive. Neuro reassessed on 12/23 after repeat brain MRI again showed signs consistent with anoxic brain injury-Neuro thinks prognosis poor and even if does survive, would have potentially serious neuro deficits. Recommends EEG if has seizure activity She was provided with IV fluid hydration for multiple days but had no enteral nutrition. After lengthy palliative discussion with patient's , 2 pablo bolanos, and palliative medicine MATERIAL HAULER, decision made to pursue comfort measures only on 12/24. Discontinued Vimpat, IV fluids, all lab draws -Given her longstanding opioid dependence and chronic pain, will have IV and po morphine available. She does not seem to be in pain, but her daughter is concerned that she is having pain without being able to express it -Given tremors of jaw and possible seizure activity--> make IV Ativan scheduled q8h -continue hyoscyamine and/or atropine drops as needed for secretions -Plan to place in halfway with hospice #UTI -Unable to determine if contributory at time of admission i.e. if she had symptoms. Ur cx grew ESBL E. coli -She completed treatment with 5 days of ertapenem -Lopez catheter remains in place for comfort #Transaminitis: AST and ALT are somewhat elevated on admission and then trended downward slightly on last check. TBili and alk phos normal. Perhaps some degree of liver injury from hypotension or poor perfusion during overdose. No imaging of liver performed here. CK normal No further lab draws #HTN-BPs are elevated, has not been able to take any of her home meds due to being NPO Discontinue antihypertensives on comfort measures #DMII-on metformin at home, no recent HgbA1C in our system. Glucose here has been well controlled No need for Accu-Cheks or blood sugar control VTE Prophylaxis -discontinued Lovenox 40mg SQ daily now on comfort measures Dispo-continued stay medical/surgical unit on comfort measures only, awaiting placement at halfway with hospice. Case management involved Admission and Anticipated Discharge Date Admission Date: December 18, 2024 Subjective Pt was having ongoing tremors of her jaw when seen by Palliative this AM and I discussed her care with Palliative Med and nursing. A dose of roxanol was given in case of pain and now received ativan. Pt now sleeping Physical Exam Constitutional: no acute distress Respiratory: normal respiratory effort, lungs clear to auscultation normal respiratory effort Cardiovascular: RRR, no murmur, no edema Skin: no rashes, warm and dry Psychiatric: no further tremor of jaw Results & Data Results & Data Vital Signs (Past 12 Hours) Vital Signs O2 Del Method 12/26/24 07:38 Room Air PG Care Time/CCT Total # of Minutes Spent Total Time Spent with Patient: Total time spent is greater than 50% in coordination of care (as documented) at patient's floor/unit and/or counseling patient: Coding Level of Care Code 67755 SUB INP/OBS CARE 12/20MIN Diagnoses Intentional opiate overdose, initial encounter T40.602A Encounter type: initial encounter Injury intent: intentional self-harm Encephalopathy, unspecified type G93.40 Encephalopathy type: unspecified encephalopathy UTI (urinary tract infection) N39.0 Transaminitis R74.01 (1) Opiate overdose Encounter type: initial encounter Injury intent: intentional self-harm Qualified Code(s): T40.602A - Poisoning by unspecified narcotics, intentional self-harm, initial encounter (2) Encephalopathy Encephalopathy type: unspecified encephalopathy Qualified Code(s): G93.40 - Encephalopathy, unspecified
--- NOTE | 2024-12-27 07:53 | Hospitalist Progress Note ---
Date of Service December 27, 2024 Assessment & Plan (1) Opiate overdose: (2) Encephalopathy: (3) UTI (urinary tract infection): Plan This pt is a 74 yo female with a h/o chronic pain on opioid therapy, HTN, DMII, migraine headaches, who presents with an opioid overdose (unclear if in tentional) resulting in anoxic brain injury. #Fentanyl, Oxycodone overdose, ?intentional, with toxic metabolic encephalopathy, Complicated now with likely Anoxic brain injury Held Fentanyl and oxycodone on admission and was on narcan gtt without improvement. VBG without CO2 retention. CTA head and neck negative, Brain MRI consistent with anoxic brain injury vs Wernicke's vs PRES. Treated with high dose IV thiamine for 5 days and no improvement. Remained with eyes open but rigid throughout body aches but more flaccid in LUE, +nystagmus, unresponsive. Neuro reassessed on 12/23 after repeat brain MRI again showed signs consistent with anoxic brain injury-Neuro thinks prognosis poor and even if does survive, would have potentially serious neuro deficits. Recommends EEG if has seizure activity She was provided with IV fluid hydration for multiple days but had no enteral nutrition. After lengthy palliative discussion with patient's , 2 daughters, and palliative medicine TIMBER SKIDDER, decision made to pursue comfort measures only on 12/24. Discontinued Vimpat, IV fluids, all lab draws -Given her longstanding opioid dependence and chronic pain, will have IV and po morphine available. She does not seem to be in pain, but her daughter is concerned that she is having pain without being able to express it -Given tremors of jaw and possible seizure activity--> make IV Ativan scheduled q8h -continue hyoscyamine and/or atropine drops as needed for secretions -Plan to place in custodial with hospice #UTI -Unable to determine if contributory at time of admission i.e. if she had symptoms. Ur cx grew ESBL E. coli -She completed treatment with 5 days of ertapenem -Lopez catheter remains in place for comfort #Transaminitis: AST and ALT are somewhat elevated on admission and then trended downward slightly on last check. TBili and alk phos normal. Perhaps some degree of liver injury from hypotension or poor perfusion during overdose. No imaging of liver performed here. CK normal No further lab draws #HTN-BPs are elevated, has not been able to take any of her home meds due to being NPO Discontinue antihypertensives on comfort measures #DMII-on metformin at home, no recent HgbA1C in our system. Glucose here has been well controlled No need for Accu-Cheks or blood sugar control Dispo-continued stay medical/surgical unit on comfort measures only, awaiting placement at custodial with hospice. Case management involved Admission and Anticipated Discharge Date Admission Date: December 18, 2024 Subjective appears comfortable but recently medicated roving eye movements does not fix gaze or have purposeful movements Physical Exam Physical Exam: does not open eyes or startle, does not withdraw from pain for me PG Care Time/CCT Total # of Minutes Spent Total Time Spent with Patient: Total time spent is greater than 50% in coordination of care (as documented) at patient's floor/unit and/or counseling patient: Coding Level of Care Code 08269 SUB INP/OBS CARE 2/35MIN Diagnoses Intentional opiate overdose, initial encounter T40.602A Encounter type: initial encounter Injury intent: intentional self-harm Encephalopathy, unspecified type G93.40 Encephalopathy type: unspecified encephalopathy UTI (urinary tract infection) N39.0 (1) Opiate overdose Encounter type: initial encounter Injury intent: intentional self-harm Qualified Code(s): T40.602A - Poisoning by unspecified narcotics, intentional self-harm, initial encounter (2) Encephalopathy Encephalopathy type: unspecified encephalopathy Qualified Code(s): G93.40 - Encephalopathy, unspecified
[2024-12-28] MEDS ORDERED: LORazepam 2 MG/1 ML VIAL IV PRN (15:18)
--- NOTE | 2024-12-28 15:21 | Hospitalist Progress Note ---
Date of Service December 28, 2024 Assessment & Plan (1) Opiate overdose: (2) Encephalopathy: (3) UTI (urinary tract infection): Plan This pt is a 74 yo female with a h/o chronic pain on opioid therapy, HTN, DMII, migraine headaches, who presents with an opioid overdose (unclear if in tentional) resulting in anoxic brain injury. #Fentanyl, Oxycodone overdose, ?intentional, with toxic metabolic encephalopathy, Complicated now with likely Anoxic brain injury Held Fentanyl and oxycodone on admission and was on narcan gtt without improvement. VBG without CO2 retention. CTA head and neck negative, Brain MRI consistent with anoxic brain injury vs Wernicke's vs PRES. Treated with high dose IV thiamine for 5 days and no improvement. Remained with eyes open but rigid throughout body aches but more flaccid in LUE, +nystagmus, unresponsive. 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 After lengthy palliative discussion with patient's , 2 daughters, and palliative medicine ENTREPRENEUR, decision made to pursue comfort measures only on 12/24. Discontinued Vimpat, IV fluids, all lab draws -Given her longstanding opioid dependence and chronic pain, will have IV and po morphine available. She does not seem to be in pain, but her daughter is concerned that she is having pain without being able to express it -Given tremors of jaw and possible seizure activity--> make IV Ativan scheduled q6h plus prn and prn hydrocodone -continue hyoscyamine and/or atropine drops as needed for secretions -Plan to place in senior care with hospice #UTI -Unable to determine if contributory at time of admission i.e. if she had symptoms. Ur cx grew ESBL E. coli -She completed treatment with 5 days of ertapenem -Lopez catheter remains in place for comfort #Transaminitis: AST and ALT are somewhat elevated on admission and then trended downward slightly on last check. TBili and alk phos normal. Perhaps some degree of liver injury from hypotension or poor perfusion during overdose. No imaging of liver performed here. CK normal No further lab draws #HTN-BPs are elevated, has not been able to take any of her home meds due to being NPO Discontinue antihypertensives on comfort measures #DMII-on metformin at home, no recent HgbA1C in our system. Glucose here has been well controlled No need for Accu-Cheks or blood sugar control Dispo-continued stay medical/surgical unit on comfort measures only, awaiting placement at senior care with hospice. Case management involved Admission and Anticipated Discharge Date Admission Date: December 18, 2024 Subjective appears comfortable but recently medicated, does seem to have elevated bp and pulse, adjusted meds 12/28 roving eye movements does not fix gaze or have purposeful movements Physical Exam Physical Exam: does not open eyes or startle, does not withdraw from pain for me PG Care Time/CCT Total # of Minutes Spent Total Time Spent with Patient: Total time spent is greater than 50% in coordination of care (as documented) at patient's floor/unit and/or counseling patient: Coding Level of Care Code 39752 SUB INP/OBS CARE 2/35MIN Diagnoses Intentional opiate overdose, initial encounter T40.602A Encounter type: initial encounter Injury intent: intentional self-harm Encephalopathy, unspecified type G93.40 Encephalopathy type: unspecified encephalopathy UTI (urinary tract infection) N39.0 (1) Opiate overdose Encounter type: initial encounter Injury intent: intentional self-harm Qualified Code(s): T40.602A - Poisoning by unspecified narcotics, intentional self-harm, initial encounter (2) Encephalopathy Encephalopathy type: unspecified encephalopathy Qualified Code(s): G93.40 - Encephalopathy, unspecified
[2024-12-28] MEDS: LORazepam 2 MG/1 ML VIAL IV SCH (16:58)
--- NOTE | 2024-12-29 11:00 | Palliative Care Progress Note ---
Date of Service December 29, 2024 Assessment & Plan (1) Palliative care by specialist: (2) Comfort measures only status: (3) Need for comfort care: Plan 74 year old female with PMHx of chronic opiate use 2/2 chronic shoulder/back pain, migraines, HTN, DJD, arthritis, transaminitis, and insomnia admitted to hospital after being found unresponsive with question of fentanyl overdose. She remains unresponsive to verbal an tactile stimuli. She was transitioned to [facility] on 12/24/24 and is pending SNF placement with hospice. [facility] Symptom manamgement: Pain/dyspnea/tachypnea dilaudid 0.5mg IVP PRN [id number] Consider titratable dilaudid drip if pt requires >3 PRN doses in under two consecutive hours. Nausea/vomitting zofran 4mg IVP q4h PRN Agitation ativan 1 mg IVP q6h NICO ativan 1 mg IVP q4h PRN Hyperactive delirium haldol 5mg IVP q6h PRN Secretions - if repositioning not effective robinul 0.4mg IV q4h PRN atropine SL 3 drops Q1h PRN Nursing care: Discontinue all medications not directed towards comfort. Detether pt from IV tubing, monitor cables, and check vitals once per shift. Please continue HFNC and titrate down as able for patient comfort. Use medications above PRN for dyspnea/tachypnea and do not increase oxygen once titrated down. Assess q1h for pain/dyspnea and treat accordingly. Admission and Anticipated Discharge Date Admission Date: December 18, 2024 Subjective Assessed pt at bedside, She was transitioned to [facility] on 12/24/24. She has had minimal need for PRN medications over weekend. Pt is unresponsive to verbal and gentle tactile stimuli, awake with spontaneously open eyes but does not track. Encouraged BSRN to administer medication for comfort based on nonverbal signs of pain/dyspnea. No visitors at bedside. Review of Systems Review of Systems: Unobtainable due to cognitive status Physical Exam Physical Exam: Patient lying in bed, Eyes open, does not track. Not responsive to verbal/gentle tactile stimuli. Results & Data Vital Signs (Past 12 Hours) Vital Signs Temp 37.2 C 12/25/24 10:28 Pulse 110 H 12/25/24 10:28 Resp 18 12/25/24 10:28 BP 186/108 H 12/25/24 10:28 Pulse Ox 94 12/25/24 10:28 O2 Del Method Room Air 12/27/24 08:00 Laboratory Results No further labs or diagnostics in concert with comfort directed care. Diagnostic Findings No further labs or diagnostics in concert with comfort directed care. Medications Administered Current Inpatient Medications Acetaminophen (Acetaminophen 650 Mg Supp) 650 mg TN Q6H PRN PRN Reason: Fever 37.8C or Above Stop: 01/23/25 14:48 Atropine Sulfate (Atropine Sulfate 1% Op Soln 5 Ml Btl) 4 drops SL Q1H PRN PRN Reason: Secretions or pulm congestion Stop: 01/23/25 14:48 Haloperidol (Haloperidol Oral Soln 2 Mg/Ml) 0.5 mg PO Q4H PRN PRN Reason: Anxiety/Agitation Stop: 01/23/25 14:48 Hydromorphone HCl (Hydromorphone Inj 0.5 Mg/0.5 Ml Syr) 0.5 mg IV Q4H PRN PRN Reason: Pain or Respiratory Distress Stop: 01/07/25 14:48 Last Admin: 12/29/24 06:17 Dose: 0.5 mg Hyoscyamine (Hyoscyamine Sulfate 0.125 Mg Tab) 0.125 mg SL Q4H PRN PRN Reason: Secretions or Pulm Congestion Stop: 01/23/25 14:48 Lorazepam (Lorazepam 2 Mg/1 Ml Vial) 1 mg IV Q6H NICO Stop: 01/27/25 15:29 Last Admin: 12/29/24 09:59 Dose: 1 mg Lorazepam (Lorazepam 2 Mg/1 Ml Vial) 1 mg IV Q4H PRN PRN Reason: Anxiety/Agitation Stop: 01/27/25 15:17 Morphine Sulfate (Morphine Sulfate 10 Mg/0.5 Ml Udp) 5 mg PO Q3H PRN PRN Reason: Pain or Respiratory Distress Stop: 01/07/25 15:11 Ondansetron HCl (Ondansetron Inj 2 Mg/Ml 2 Ml Vial) 4 mg IV Q4H PRN PRN Reason: Nausea &/or Vomiting Stop: 01/23/25 15:11 PG Care Time/CCT Total # of Minutes Spent Total Time Spent with Patient: Total time spent is greater than 50% in coordination of care (as documented) at patient's floor/unit and/or counseling patient: [place]oding [place] [address] SUB INP/OBS CARE 2/35MIN Patient Type Established History Expanded Problem Focused Exam Expanded Problem Focused Medical Decision Making Moderate Complexity Diagnoses Palliative care by specialist Z51.5 Comfort measures only status Z51.5 Need for comfort care
--- NOTE | 2024-12-29 21:11 | Hospitalist Progress Note ---
Date of Service December 29, 2024 Assessment & Plan (1) Opiate overdose: (2) Encephalopathy: (3) UTI (urinary tract infection): Plan This pt is a 74 yo female with a h/o chronic pain on opioid therapy, HTN, DMII, migraine headaches, who presents with an opioid overdose (unclear if in tentional) resulting in anoxic brain injury. #Fentanyl, Oxycodone overdose, ?intentional, with toxic metabolic encephalopathy, Complicated now with likely Anoxic brain injury Held Fentanyl and oxycodone on admission and was on narcan gtt without improvement. VBG without CO2 retention. CTA head and neck negative, Brain MRI consistent with anoxic brain injury vs Wernicke's vs PRES. Treated with high dose IV thiamine for 5 days and no improvement. Remained with eyes open but rigid throughout body aches but more flaccid in LUE, +nystagmus, unresponsive. Neuro reassessed on 12/23 after repeat brain MRI again showed signs consistent with anoxic brain injury-Neuro thinks prognosis poor and even if does survive, would have potentially serious neuro deficits. She was provided with IV fluid hydration for multiple days but had no enteral nutrition. After lengthy palliative discussion with patient's , 2 daughters, and palliative medicine PASTRYCOOK'S ASSISTANT, decision made to pursue comfort measures only on 12/24. Discontinued Vimpat, IV fluids, all lab draws -Given her longstanding opioid dependence and chronic pain, continue as needed po morphine 5 Mg p.o. every hour as needed -Given tremors of jaw and possible seizure activity--> made IV Ativan scheduled [id number] to sublingual lorazepam 1 mg every 6 hours scheduled -continue hyoscyamine and/or atropine drops as needed for secretions -Plan to place in custodial with hospice once available #UTI -Unable to determine if contributory at time of admission i.e. if she had symptoms. Ur cx grew ESBL E. coli -She completed treatment with 5 days of ertapenem -Lopez catheter remains in place for comfort #Transaminitis: AST and ALT are somewhat elevated on admission and then trended downward slightly on last check. TBili and alk phos normal. Perhaps some degree of liver injury from hypotension or poor perfusion during overdose. No imaging of liver performed here. CK normal No further lab draws #HTN-BPs are elevated, has not been able to take any of her home meds due to being NPO Discontinue antihypertensives on comfort measures #DMII-on metformin at home, no recent HgbA1C in our system. Glucose here has been well controlled No need for Accu-Cheks or blood sugar control Dispo-continued stay medical/surgical unit on comfort measures only, awaiting placement at custodial with hospice. Case management involved Admission and Anticipated Discharge Date Admission Date: December 18, 2024 Subjective Patient is obtunded, does not respond to verbal stimulus or gentle tactile stimulus. No further tremor or seizure-like activity. Discussed with palliative and case management-will transition to oral comfort meds only to ensure that her symptoms are controlled with this Physical Exam Constitutional: well developed; no acute distress Eyes: + anisocoria (L>R but both reactive) and + nystagmus Respiratory: normal respiratory effort, lungs clear to auscultation normal respiratory effort Cardiovascular: RRR, no murmur, no edema Neurologic: + does not move all extremities Speec h / Cognition: + expressive aphasia, + receptive aphasia and + abnormal cognition Motor/Sensory: no tremor PG Care Time/CCT Total # of Minutes Spent Total Time Spent with Patient: Total time spent is greater than 50% in coordination of care (as documented) at patient's floor/unit and/or counseling patient: Coding Level of Care Code 41468 SUB INP/OBS CARE 12/20MIN Diagnoses Intentional opiate overdose, initial encounter T40.602A Encounter type: initial encounter Injury intent: intentional self-harm Encephalopathy, unspecified type G93.40 Encephalopathy type: unspecified encephalopathy UTI (urinary tract infection) N39.0 (1) Opiate overdose Encounter type: initial encounter Injury intent: intentional self-harm Qualified Code(s): T40.602A - Poisoning by unspecified narcotics, intentional self-harm, initial encounter (2) Encephalopathy Encephalopathy type: unspecified encephalopathy Qualified Code(s): G93.40 - Encephalopathy, unspecified
[2024-12-29] MEDS: LORazepam 1 MG TAB SL SCH (21:21)
[2024-12-29] MEDS: ACETAMINOPHEN 650 MG SUPP PR PRN (21:21)
--- NOTE | 2024-12-30 08:03 | Palliative Care Progress Note ---
Date of Service December 30, 2024 Assessment & Plan (1) Palliative care by specialist: (2) Comfort measures only status: (3) Need for comfort care: Plan 74 year old female with PMHx of chronic opiate use 2/2 chronic shoulder/back pain, migraines, HTN, DJD, arthritis, transaminitis, and insomnia admitted to hospital after being found unresponsive with question of fentanyl overdose. She remains unresponsive to verbal an tactile stimuli. She was transitioned to [facility] on 12/24/24 and is pending SNF placement with hospice, possible discharge to [facility] with hospice today . [facility] Symptom management: Pain/dyspnea/tachypnea dilaudid 0.5mg IVP PRN [id number] Consider titratable dilaudid drip if pt requires >3 PRN doses in under two consecutive hours. Nausea/vomitting zofran 4mg IVP q4h PRN Agitation ativan 1 mg IVP q6h NICO ativan 1 mg IVP q4h PRN Hyperactive delirium haldol 5mg IVP q6h PRN Secretions - if repositioning not effective robinul 0.4mg IV q4h PRN atropine SL 3 drops Q1h PRN Nursing care: Discontinue all medications not directed towards comfort. Detether pt from IV tubing, monitor cables, and check vitals once per shift. Please continue HFNC and titrate down as able for patient comfort. Use medications above PRN for dyspnea/tachypnea and do not increase oxygen once titrated down. Assess q1h for pain/dyspnea and treat accordingly. Admission and Anticipated Discharge Date Admission Date: December 18, 2024 Subjective Assessed pt at bedside, She was transitioned to DIS[facility] on 12/24/24. She has had no PRN medication use overnight. Pt is unresponsive to verbal and gentle tactile stimuli, awake with spontaneously open eyes but does not track. Reinforced BSRN to administer medication for comfort based on nonverbal signs of pain/dyspnea. No visitors at bedside. Review of Systems Review of Systems: Unobtainable due to cognitive status Physical Exam Physical Exam: Patient lying in bed, Eyes open, does not track. Not responsive to verbal/gentle tactile stimuli. Results & Data Vital Signs (Past 12 Hours) Vital Signs Temp 37.2 C 12/25/24 10:28 Pulse 110 H 12/25/24 10:28 Resp 18 12/25/24 10:28 BP 186/108 H 12/25/24 10:28 Pulse Ox 94 12/25/24 10:28 O2 Del Method Room Air 12/27/24 08:00 Intake & Output 12/29/24 12/30/24 12/30/24 18:59 06:59 18:59 Output Total 300 / 300 Balance -300 / -300 Output: Urine Amount (Catheter) 300 / 300 Lopez/Indwelling 300 / 300 Laboratory Results No further labs or diagnostics in concert with comfort directed care. Diagnostic Findings No further labs or diagnostics in concert with comfort directed care. Medications Administered Current Inpatient Medications Acetaminophen (Acetaminophen 650 Mg Supp) 650 mg [place] Q6H PRN PRN Reason: Fever 37.8C or Above Stop: 01/23/25 14:48 Last Admin: 12/29/24 21:21 Dose: 650 mg Atropine Sulfate (Atropine Sulfate 1% Op Soln 5 Ml Btl) 4 drops SL Q1H PRN PRN Reason: Secretions or pulm congestion Stop: 01/23/25 14:48 Haloperidol (Haloperidol Oral Soln 2 Mg/Ml) 0.5 mg PO Q4H PRN PRN Reason: Anxiety/Agitation Stop: 01/23/25 14:48 Hyoscyamine (Hyoscyamine Sulfate 0.125 Mg Tab) 0.125 mg SL Q4H PRN PRN Reason: Secretions or Pulm Congestion Stop: 01/23/25 14:48 Lorazepam (Lorazepam 1 Mg Tab) 1 mg SL Q6H NICO Stop: 01/28/25 21:14 Last Admin: 12/30/24 03:07 Dose: 1 mg Morphine Sulfate (Morphine Sulfate 10 Mg/0.5 Ml Udp) 5 mg PO Q1H PRN PRN Reason: Pain or Respiratory Distress Stop: 01/07/25 15:11 Ondansetron HCl (Ondansetron Inj 2 Mg/Ml 2 Ml Vial) 4 mg IV Q4H PRN PRN Reason: Nausea &/or Vomiting Stop: 01/23/25 15:11 PG Care Time/CCT Total # of Minutes Spent Total Time Spent with Patient: Total time spent is greater than 50% in coordination of care (as documented) at patient's floor/unit and/or counseling patient: Coding [place] [address] SUB INP/OBS CARE 2/35MIN Patient Type Established History Problem Focused Exam Problem Focused Medical Decision Making Low Complexity Diagnoses Palliative care by specialist Z51.5 Comfort measures only status Z51.5 Need for comfort care
--- NOTE | 2024-12-30 13:15 | Hospitalist Progress Note ---
Date of Service December 30, 2024 Assessment & Plan (1) Opiate overdose: Plan: Unable to determine if deliberate or accidental. (2) Encephalopathy: Plan: She appears to have suffered an anoxic brain injury. She is comfort measures only at this time (3) UTI (urinary tract infection): Plan: ESBL E. coli isolated on admission. She was treated with ertapenem intravenously (4) Essential hypertension: Plan: All usual medications have been discontinued. (5) Type 2 diabetes mellitus: Plan: Comfort measures only. No assessment or further intervention at this time (6) Transaminitis: Plan: Appears to have occurred in association with the opioid overdose. No intervention at this time Plan Comfort measures only. The patient is expected to soon Admission and Anticipated Discharge Date Admission Date: December 18, 2024 Subjective She remains unresponsive. Eyes are open but deviated to the left. No response to painful stimuli. Palliative care entry noted. She remains comfort measures only. Review of Systems 2 Review of Systems: The patient is unable to answer any questions regarding review of systems at this time Physical Exam 2 Physical Exam: General-eyes are open but the patient is unresponsive. Both eyes are deviated to the left HEENT-head atraumatic and normocephalic, both eyes are deviated to the left. Neck-no lymphadenopathy or thyromegaly, trachea midline Chest-clear to auscultation. No rales, wheezing or rhonchi Cardiac-regular rate and rhythm, normal S1 and S2 Abdomen-hypoactive bowel sounds but present. No hepatosplenomegaly Extremities-no cyanosis, clubbing, or edema Neuro-apparent anoxic brain injury with unresponsiveness Psych-cannot assess Results & Data Results & Data Laboratory Results 12/24/24 07:40 12/24/24 07:40 PG Care Time/CCT Total # of Minutes Spent Total Time Spent with Patient: Total time spent is greater than 50% in coordination of care (as documented) at patient's floor/unit and/or counseling patient: Coding Level of Care Code 35197 SUB INP/OBS CARE 2/35MIN Diagnoses Intentional opiate overdose, initial encounter T40.602A Encounter type: initial encounter Injury intent: intentional self-harm Encephalopathy, unspecified type G93.40 Encephalopathy type: unspecified encephalopathy UTI (urinary tract infection) N39.0 Essential hypertension I10 Type 2 diabetes mellitus E11.9 Transaminitis R74.01 (1) Opiate overdose Encounter type: initial encounter Injury intent: intentional self-harm Qualified Code(s): T40.602A - Poisoning by unspecified narcotics, intentional self-harm, initial encounter (2) Encephalopathy Encephalopathy type: unspecified encephalopathy Qualified Code(s): G93.40 - Encephalopathy, unspecified
--- NOTE | 2024-12-31 14:57 | Hospitalist Progress Note ---
Date of Service December 31, 2024 Assessment & Plan (1) Opiate overdose: Plan: Unable to determine if deliberate or accidental. (2) Encephalopathy: Plan: She appears to have suffered an anoxic brain injury. She is comfort measures only at this time (3) UTI (urinary tract infection): Plan: ESBL E. coli isolated on admission. She was treated with ertapenem intravenously (4) Essential hypertension: Plan: All usual medications have been discontinued. (5) Type 2 diabetes mellitus: Plan: Comfort measures only. No assessment or further intervention at this time (6) Transaminitis: Plan: Appears to have occurred in association with the opioid overdose. No intervention at this time Plan Comfort measures only. The patient is expected to soon Admission and Anticipated Discharge Date Admission Date: December 18, 2024 Subjective No significant change in clinical status. Review of Systems 2 Review of Systems: The patient is unable to answer any questions regarding review of systems at this time Physical Exam 2 Physical Exam: General-eyes are open but the patient is unresponsive. B HEENT-head atraumatic and normocephalic, both eyes are deviated to the left. Neck-no lymphadenopathy or thyromegaly, trachea midline Chest-clear to auscultation. No rales, wheezing or rhonchi Cardiac-regular rate and rhythm, normal S1 and S2 Abdomen-hypoactive bowel sounds but present. No hepatosplenomegaly Extremities-no cyanosis, clubbing, or edema Neuro-apparent anoxic brain injury with unresponsiveness although she keeps her eyes open Psych-cannot assess Results & Data Results & Data Vital Signs (Past 12 Hours) 12/24/24 07:40 12/24/24 07:40 Laboratory Results 12/24/24 07:40 12/24/24 07:40 PG Care Time/CCT Total # of Minutes Spent Total Time Spent with Patient: Total time spent is greater than 50% in coordination of care (as documented) at patient's floor/unit and/or counseling patient: Coding Level of Care Code 93628 SUB INP/OBS CARE 2/35MIN Diagnoses Intentional opiate overdose, initial encounter T40.602A Encounter type: initial encounter Injury intent: intentional self-harm Encephalopathy, unspecified type G93.40 Encephalopathy type: unspecified encephalopathy UTI (urinary tract infection) N39.0 Essential hypertension I10 Type 2 diabetes mellitus E11.9 Transaminitis R74.01 (1) Opiate overdose Encounter type: initial encounter Injury intent: intentional self-harm Qualified Code(s): T40.602A - Poisoning by unspecified narcotics, intentional self-harm, initial encounter (2) Encephalopathy Encephalopathy type: unspecified encephalopathy Qualified Code(s): G93.40 - Encephalopathy, unspecified
--- NOTE | 2025-01-01 13:24 | Hospitalist Progress Note ---
Date of Service January 01, 2025 Assessment & Plan (1) Opiate overdose: Plan: Unable to determine if deliberate or accidental. (2) Encephalopathy: Plan: She appears to have suffered an anoxic brain injury. She is comfort measures only at this time. Scheduled dosing of sublingual Ativan discontinued (3) UTI (urinary tract infection): Plan: ESBL E. coli isolated on admission. She was treated with ertapenem intravenously (4) Essential hypertension: Plan: All usual medications have been discontinued. (5) Type 2 diabetes mellitus: Plan: Comfort measures only. No assessment or further intervention at this time (6) Transaminitis: Plan: Appears to have occurred in association with the opioid overdose. No intervention at this time Plan Comfort measures only. Placement proceedings are underway per case management Admission and Anticipated Discharge Date Admission Date: December 18, 2024 Subjective No significant change in clinical status. Scheduled dosing of sublingual Ativan has been discontinued. I spoke to the patient's , Wilton, today by phone. Review of Systems 2 Review of Systems: The patient is unable to answer any questions regarding review of systems at this time Physical Exam 2 Physical Exam: General-eyes are open but the patient is unresponsive. B HEENT-head atraumatic and normocephalic, both eyes are deviated to the left. Neck-no lymphadenopathy or thyromegaly, trachea midline Chest-clear to auscultation. No rales, wheezing or rhonchi Cardiac-regular rate and rhythm, normal S1 and S2 Abdomen-hypoactive bowel sounds but present. No hepatosplenomegaly Extremities-no cyanosis, clubbing, or edema Neuro-apparent anoxic brain injury with unresponsiveness although she keeps her eyes open Psych-cannot assess Results & Data Results & Data Vital Signs (Past 12 Hours) Vital Signs O2 Del Method 01/01/25 07:23 Room Air Laboratory Results 12/24/24 07:40 12/24/24 07:40 PG Care Time/CCT Total # of Minutes Spent Total Time Spent with Patient: Total time spent is greater than 50% in coordination of care (as documented) at patient's floor/unit and/or counseling patient: Coding Level of Care Code 91939 SUB INP/OBS CARE 2/35MIN Diagnoses Intentional opiate overdose, initial encounter T40.602A Encounter type: initial encounter Injury intent: intentional self-harm Encephalopathy, unspecified type G93.40 Encephalopathy type: unspecified encephalopathy UTI (urinary tract infection) N39.0 Essential hypertension I10 Type 2 diabetes mellitus E11.9 Transaminitis R74.01 (1) Opiate overdose Encounter type: initial encounter Injury intent: intentional self-harm Qualified Code(s): T40.602A - Poisoning by unspecified narcotics, intentional self-harm, initial encounter (2) Encephalopathy Encephalopathy type: unspecified encephalopathy Qualified Code(s): G93.40 - Encephalopathy, unspecified
--- NOTE | 2025-01-01 13:44 | Palliative Care Progress Note ---
Date of Service January 01, 2025 Assessment & Plan (1) Palliative care by specialist: (2) Comfort measures only status: (3) Need for comfort care: Plan 74 year old female with PMHx of chronic opiate use 2/2 chronic shoulder/back pain, migraines, HTN, DJD, arthritis, transaminitis, and insomnia admitted to hospital after being found unresponsive with question of fentanyl overdose. She remains unresponsive to verbal an tactile stimuli. She was transitioned to [facility]CH [facility]ER[facility] on 12/24/24 and is pending SNF placement with hospice. [facility] [facility] Symptom management: Pain/dyspnea/tachypnea dilaudid 0.5mg IVP PRN [id number] Consider titratable dilaudid drip if pt requires >3 PRN doses in under two consecutive hours. Nausea/vomitting zofran 4mg IVP q4h PRN Agitation ativan 1 mg IVP q6h NICO ativan 1 mg IVP q4h PRN Hyperactive delirium haldol 5mg IVP q6h PRN Secretions - if repositioning not effective robinul 0.4mg IV q4h PRN atropine SL 3 drops Q1h PRN Nursing care: Discontinue all medications not directed towards comfort. Detether pt from IV tubing, monitor cables, and check vitals once per shift. Please continue HFNC and titrate down as able for patient comfort. Use medications above PRN for dyspnea/tachypnea and do not increase oxygen once titrated down. Assess q1h for pain/dyspnea and treat accordingly. Admission and Anticipated Discharge Date Admission Date: December 18, 2024 Subjective Assessed pt at bedside, She was transitioned to [facility]ER[facility] on 12/24/24. She has had no PRN medication use overnight. Pt is unresponsive to verbal and gentle tactile stimuli, awake with spontaneously open eyes but does not track. Reinforced BSRN to administer medication for comfort based on nonverbal signs of pain/dyspnea. No visitors at bedside. Attending Dr Bennett spoke with spouse today to give update. Review of Systems Review of Systems: Unobtainable due to cognitive status Physical Exam Physical Exam: Patient lying in bed, Eyes open, does not track. Not responsive to verbal/gentle tactile stimuli. Results & Data Vital Signs (Past 12 Hours) Vital Signs O2 Del Method 01/01/25 07:23 Room Air Laboratory Results No further labs or diagnostics in concert with comfort directed care. Diagnostic Findings No further labs or diagnostics in concert with comfort directed care. Medications Administered Current Inpatient Medications Acetaminophen (Acetaminophen 650 Mg Supp) 650 mg [place] Q6H PRN PRN Reason: Fever 37.8C or Above Stop: 01/23/25 14:48 Last Admin: 12/30/24 21:03 Dose: 650 mg Atropine Sulfate (Atropine Sulfate 1% Op Soln 5 Ml Btl) 4 drops SL Q1H PRN PRN Reason: Secretions or pulm congestion Stop: 01/23/25 14:48 Haloperidol (Haloperidol Oral Soln 2 Mg/Ml) 0.5 mg PO Q4H PRN PRN Reason: Anxiety/Agitation Stop: 01/23/25 14:48 Hyoscyamine (Hyoscyamine Sulfate 0.125 Mg Tab) 0.125 mg SL Q4H PRN PRN Reason: Secretions or Pulm Congestion Stop: 01/23/25 14:48 Morphine Sulfate (Morphine Sulfate 10 Mg/0.5 Ml Udp) 5 mg PO Q1H PRN PRN Reason: Pain or Respiratory Distress Stop: 01/07/25 15:11 Ondansetron HCl (Ondansetron Inj 2 Mg/Ml 2 Ml Vial) 4 mg IV Q4H PRN PRN Reason: Nausea &/or Vomiting Stop: 01/23/25 15:11 PG Care Time/CCT Total # of Minutes Spent Total Time Spent with Patient: Total time spent is greater than 50% in coordination of care (as documented) at patient's floor/unit and/or counseling patient: [place]oding [place] [address] SUB INP/OBS CARE 2/35MIN Patient Type Established History Problem Focused Exam Problem Focused Medical Decision Making Low Complexity Diagnoses Palliative care by specialist Z51.5 Comfort measures only status Z51.5 Need for comfort care
[2025-01-01] MEDS: MoRPHine SULFATE 10 MG/0.5 ML UDP PO PRN (17:20)
--- NOTE | 2025-01-02 13:03 | Hospitalist Progress Note ---
Date of Service January 02, 2025 Assessment & Plan (1) Opiate overdose: Plan: Unable to determine if deliberate or accidental. (2) Encephalopathy: Plan: She appears to have suffered an anoxic brain injury. She is comfort measures only at this time. Scheduled dosing of sublingual Ativan has been discontinued. This was initially started to treat involuntary twitching of facial musculature. So far this has not recurred (3) UTI (urinary tract infection): Plan: ESBL E. coli isolated on admission. She was treated with ertapenem intravenously (4) Essential hypertension: Plan: All usual medications have been discontinued. (5) Type 2 diabetes mellitus: Plan: Comfort measures only. No assessment or further intervention at this time (6) Transaminitis: Plan: Appears to have occurred in association with the opioid overdose. No intervention at this time Plan Comfort measures only. Placement proceedings are underway per case management Admission and Anticipated Discharge Date Admission Date: December 18, 2024 Subjective Eyes are open but she is unresponsive. I spoke to her , Wilton, yesterday by phone, January 01. Placement is pending at [facility] with hospice services Review of Systems 2 Review of Systems: The patient is unable to answer any questions regarding review of systems at this time Physical Exam 2 Physical Exam: General-eyes are open but the patient is unresponsive. HEENT-head atraumatic and normocephalic, both eyes are deviated to the left. Neck-no lymphadenopathy or thyromegaly, trachea midline Chest-clear to auscultation. No rales, wheezing or rhonchi Cardiac-regular rate and rhythm, normal S1 and S2 Abdomen-hypoactive bowel sounds but present. No hepatosplenomegaly Extremities-no cyanosis, clubbing, or edema Neuro-apparent anoxic brain injury with unresponsiveness although she keeps her eyes open Psych-cannot assess Results & Data Results & Data Laboratory Results 12/24/24 07:40 12/24/24 07:40 PG Care Time/CCT Total # of Minutes Spent Total Time Spent with Patient: Total time spent is greater than 50% in coordination of care (as documented) at patient's floor/unit and/or counseling patient: Coding Level of Care Code 10601 SUB INP/OBS CARE 2/35MIN Diagnoses Intentional opiate overdose, initial encounter T40.602A Encounter type: initial encounter Injury intent: intentional self-harm Encephalopathy, unspecified type G93.40 Encephalopathy type: unspecified encephalopathy UTI (urinary tract infection) N39.0 Essential hypertension I10 Type 2 diabetes mellitus E11.9 Transaminitis R74.01 (1) Opiate overdose Encounter type: initial encounter Injury intent: intentional self-harm Qualified Code(s): T40.602A - Poisoning by unspecified narcotics, intentional self-harm, initial encounter (2) Encephalopathy Encephalopathy type: unspecified encephalopathy Qualified Code(s): G93.40 - Encephalopathy, unspecified
--- NOTE | 2025-01-03 11:53 | Hospitalist Progress Note ---
Date of Service January 03, 2025 Assessment & Plan (1) Opiate overdose: Plan: Unable to determine if deliberate or accidental. (2) Encephalopathy: Plan: She appears to have suffered an anoxic brain injury. She is comfort measures only at this time. Scheduled dosing of sublingual Ativan has been discontinued. This was initially started to treat involuntary twitching of facial musculature. So far this has not recurred (3) UTI (urinary tract infection): Plan: ESBL E. coli isolated on admission. She was treated with ertapenem intravenously (4) Essential hypertension: Plan: All usual medications have been discontinued. (5) Type 2 diabetes mellitus: Plan: Comfort measures only. No assessment or further intervention at this time (6) Transaminitis: Plan: Appears to have occurred in association with the opioid overdose. No intervention at this time Plan Comfort measures only. Placement proceedings are underway per case management Admission and Anticipated Discharge Date Admission Date: December 18, 2024 Subjective No change in clinical status. No sign of involuntary muscular twitching after Ativan discontinued. Review of Systems 2 Review of Systems: The patient is unable to answer any questions regarding review of systems at this time Physical Exam 2 Physical Exam: General-eyes are open but the patient is unresponsive. HEENT-head atraumatic and normocephalic, both eyes are deviated to the left. Neck-no lymphadenopathy or thyromegaly, trachea midline Chest-clear to auscultation. No rales, wheezing or rhonchi. Mildly Tachypneic Cardiac-mildly tachycardic, regular rhythm, normal S1 and S2 Abdomen-hypoactive bowel sounds but present. No hepatosplenomegaly Extremities-no cyanosis, clubbing, or edema Neuro-apparent anoxic brain injury with unresponsiveness although she keeps her eyes open Psych-cannot assess Results & Data Results & Data Vital Signs (Past 12 Hours) Vital Signs O2 Del Method 01/03/25 09:54 Room Air Laboratory Results 12/24/24 07:40 12/24/24 07:40 PG Care Time/CCT Total # of Minutes Spent Total Time Spent with Patient: Total time spent is greater than 50% in coordination of care (as documented) at patient's floor/unit and/or counseling patient: Coding Level of Care Code 79974 SUB INP/OBS CARE 2/35MIN Diagnoses Intentional opiate overdose, initial encounter T40.602A Encounter type: initial encounter Injury intent: intentional self-harm Encephalopathy, unspecified type G93.40 Encephalopathy type: unspecified encephalopathy UTI (urinary tract infection) N39.0 Essential hypertension I10 Type 2 diabetes mellitus E11.9 Transaminitis R74.01 (1) Opiate overdose Encounter type: initial encounter Injury intent: intentional self-harm Qualified Code(s): T40.602A - Poisoning by unspecified narcotics, intentional self-harm, initial encounter (2) Encephalopathy Encephalopathy type: unspecified encephalopathy Qualified Code(s): G93.40 - Encephalopathy, unspecified
--- NOTE | 2025-01-04 00:10 | Death Pronouncement Note ---
Date of Service January 04, 2025 Pronouncement Note Admission Date Admission Date: December 18, 2024 Date and Time of Date of : 01/04/25 Time of : 00:02 Contributing Factors (1) Opiate overdose: (2) Encephalopathy: (3) UTI (urinary tract infection): (4) Essential hypertension: (5) Type 2 diabetes mellitus: (6) Transaminitis: Summary Additional details: I was called to pronounce the of Britni Stone ( 1950) by Ana Blackwood RN on 11/02/2025 Upon entering the room, patient was found to be in a terminal state. They were unresponsive to, and did not withdrawal from, verbal or tactile stimuli. They were unresponsive to corneal, pupillary, and oculocephalic reflexes. On cardiopulmonary exam, they were found to be without detectable carotid pulses, and without spontaneous heart tones or respirations. Time of was pronounced by me on 11/03/2025 at 0002 Attending physician was notified was notified. Next of kin was notified by Ana Blackwood RN. Signed: Srini Flores DO Additional Data Attending physician: Oliver Bennett MD
--- NOTE | 2025-01-04 08:48 | Discharge Summary ---
Discharge Summary Date of Service January 04, 2025 Principal Dx & Hospital Course #1 = Principal Diagnosis (1) Opiate overdose: Unable to determine if deliberate or accidental. (2) Encephalopathy: She appears to have suffered an anoxic brain injury. She is comfort measures only at this time. Scheduled dosing of sublingual Ativan has been discontinued. This was initially started to treat involuntary twitching of facial muscul ature. So far this has not recurred (3) UTI (urinary tract infection): ESBL E. coli isolated on admission. She was treated with ertapenem intravenously (4) Essential hypertension: All usual medications have been discontinued. (5) Type 2 diabetes mellitus: Comfort measures only. No assessment or further intervention at this time (6) Transaminitis: Appears to have occurred in association with the opioid overdose. No intervention at this time Plan The patient at 2350 PMon January 03. She was pronounced at 12:02 AM on January 04 Admission HPI Per Admitting Provider Britni Stone is a 74 year old female with chronic opiate use who presents to the ER following an unresponsive episode. Daughter found her in floor of bathroom unresponsive with Fentanyl patches in her mouth, fallen down last night around 5:45pm. Unknown if she had hit her head when her asked her this morning. Tried to get her to bed but she had to be lifted. She was given a dose of naloxone in the bathroom and became more responsive. She was observed by her overnight who had to give an additional dose of naloxone around 7:30pm for respiratory depression. She was unable to tell her today why she had the Fentanyl patch in her mouth. No known urinary symptoms. Previously she was taking Seroquel although her notes this was tapered off any discontinued a month ago. She was unable to take any of her medications today. He is unsure of her amlodipine dosing but will find this out when he goes home. Discharge Exam Not applicable Discharge Plan Discharge Items Patient Disposition: Other Date/Time: 01/04/25 00:02 Hospital Stay Data Consultations 12/17/24 10:46 ED Decision to Admit Stat 12/23/24 08:14 Consult Palliative Care Routine Diagnostic Imagining Performed 12/17/24 09:05 CT head/brain wo con Stat 12/18/24 04:36 CT head/brain wo con Stat 12/18/24 08:11 CT angio neck with con Stat CTA head wo/w [CT angio head wo/w] Stat 12/19/24 14:44 MR brain wo con Urgent 12/23/24 06:00 MR brain wo con Routine Total Time Total Time Spent Total Time Spent (In Minutes): 25 minutes Coding Level of Care Code 54534 IN/OBS DISCH 30 MIN/LESS Diagnoses Intentional opiate overdose, initial encounter T40.602A Encounter type: initial encounter Injury intent: intentional self-harm Encephalopathy, unspecified type G93.40 Encephalopathy type: unspecified encephalopathy UTI (urinary tract infection) N39.0 Essential hypertension I10 Type 2 diabetes mellitus E11.9 Transaminitis R74.01
== END 2025-01-04 02:12 | disposition expired | DRG 917 ==
LOC: EDINP 08:46 → ED 08:46 → SUATTDRO 11:51 → 2S 12:50 → SUATTDRO 12-18 08:10 → 2E 12-18 10:56 → 3W 12-24 18:11